=== PATIENT | male | born 1970 | race Caucasian/White ===

== ENCOUNTER 2018-12-07 02:06 | Outpatient (CLI) | payer OTHER, SELFPAY ==
[2018-12-07 12:10] LABS: Abs Immature Grans 0.01 k/cumm (0.0-0.09); Absolute Basophil Count 0.04 k/cumm (0.0-0.2); Absolute Eosinophil Count 0.13 k/cumm (0.0-0.7); Absolute Lymphocyte Count 1.17 k/cumm (1.2-3.4); Absolute Monocyte Count 0.47 k/cumm (0.11-0.7); Absolute Neutrophil Count 3.46 k/cumm (1.2-6.7); Basophils % 0.8; Eosinophils % 2.5; HCT 39.6 % (40.0-50.0); HGB 13.8 g/dL (13.5-17.5); Immature Grans % 0.2; Lymphocytes % 22.2; Mean Corp. HGB Concentration 34.8 g/dL (32.0-36.0); Mean Corpuscular Hemoglobin 37.1 pg (27.0-33.0); Mean Corpuscular Volume 106.5 fL (80-95); Mean Platelet Volume 10.9 fL (8.0-11.0); Monocytes % 8.9; Neutrophils % 65.4; Platelet Count 159 x1000/uL (130-400); RBC 3.72 m/cumm (4.50-6.00); RBC Distribution Width 12.8 % (11.8-14.1); White Blood Cell Count 5.28 k/cumm (4.4-10.8)
[2018-12-07 12:32] LABS: Diff Comment RBC Morph Reviewed; Macrocytosis 2+
[2018-12-07 12:51] LABS: ALT 49 U/L (16-63); AST 36 U/L (15-37); Alkaline Phosphatase 72 U/L (46-116); Anion Gap 10.5 mmol/L (3-11); BUN 18 mg/dL (7-18); Bilirubin, Total 0.3 mg/dL (0.2-1.0); CO2 26.5 mmol/L (21.0-32.0); CREATININE 0.99 mg/dL (0.70-1.30); Calcium 9.2 mg/dL (8.5-10.1); Chloride 104 mmol/L (98-107); Glucose 89 mg/dL (70-100); Potassium 4.2 mmol/L (3.5-5.1); Sodium 141 mmol/L (136-145); TSH (W/Ref FT4) 3.44 uIU/mL (0.36-3.74); Total Protein 7.4 g/dL (6.4-8.2)
[2018-12-07 13:01] LABS: Calculated LDL 67 mg/dL; Cholesterol 124 mg/dL (50-200); HDL Cholesterol 47 mg/dL (40-60); Triglyceride 52 mg/dL (30-150)
[2018-12-08 11:02] LABS: Hepatitis B Surface Ag Negative (NEGAT)
[2018-12-08 11:10] LABS: HBs Antibody, Quant <3.1 mIU/mL; Hepatitis B Surface Ab Negative
[2018-12-08 11:15] LABS: Hep A Total Ab w Rflx IgM Positive (NEGAT)
[2018-12-08 15:48] LABS: Hep A Antibody IgM Negative (NEGAT)
== END 2018-12-07 02:26 ==
PROVIDERS: Visit Provider Nurse Practitioner Adult Health
DX: B18.2 Chronic viral hepatitis C (principal)
CPT/HCPCS: 36415; 80053; 80061; 86706; 86709; 87340; 84443; 85025; 86704; 87522

== ENCOUNTER 2019-04-11 12:10 | Emergency (ER) | payer OTHER, SELFPAY ==
[2019-04-11] VITALS (10 sets, daily range): BP systolic 101–119; BP diastolic 65–81; PULSE 81–98; RESP 16–19; TEMP 36.7–37; O2SAT 96–100
--- NOTE | 2019-04-11 12:29 | ED.GENADUL_ITS ---
Discharge Plan Disposition Patient Disposition: [facility] Condition: Stable Discharge Details Chief Complaint: Cellulitis Clinical Impression: Cellulitis of left leg Primary Care Provider: None,None ED Provider: Sepideh Sena Home Meds and New Rx's Prescriptions: New cephalexin 500 mg tablet 500 mg PO BID 10 Days Qty: 20 RF: 0 Continued buprenorphine HCl 8 mg Tablet, Sublingual 16 mg SUBLINGUAL DAILY RF: 0 Vyvanse 70 mg Capsule 70 mg PO DAILY RF: 0 Discharge Instructions Instructions: Cellulitis (ED) Additional Instructions: Return if redness spreads past marked edges in 2-3 days. You should see improvement in 3-5 days. Take Tylenol or Ibuprofen as needed for pain or fever. Return for any worsening. Take medications as directed. Follow up with primary care provider in 3-5 days. Return to ED sooner if any worsening or concerns. Increase oral fluids. Medical Decision Making 48-year-old incarcerated male presents with left lower extremity erythema and swelling which he reports is been in place for 24 hours. Denies any trauma or dysuria. Associated symptoms include headache body aches and chills. He does have a history of a spinal abscess and PEs which he reports were septic PEs does have a history of IV drug use which he reports none in the last 12 years. On exam he has a large erythemic warm area to his left medial thigh which extends up into his groin. No testicle swelling or redness. He also has some erythema noted to his left lower calf and ankle and foot. Does have 3+ pitting edema and weeping noted to his lower extremity. Labs obtained including CBC CMP lactate and CRP, ultrasound venous Doppler ordered to rule out DVT. Preliminary result from slot technician received, negative for DVT, swollen lymph nodes noted in the left groin, and a small Alva's cyst noted to the popliteal fossa measuring approximately 2.8 cm. 1429: Spoke with RN at the [facility] medical and discussed his care. Discussed follow-up and observation of erythema and cellulitis margins to be rechecked in 2 to 3 days for worsening or improvement. The [facility] verbalizes understanding and reports that they will be able to do this. Discussed with staff that if any worsening occurs to send him back to the department. Prescription written for cephalexin 500 mg twice a day x10 days and clindamycin 600 mg IV piggyback, 1 L normal saline, and first dose of cephalexin 500 mg was given in department. At this time I feel that patient could be admitted to the hospital versus going back to the correctional facility. Due to relatively normal labs and nontoxic appearance I feel at this time it is within reason to attempt outpatient oral antibiotics. Strict return instructions given to patient staff at facility, verbalized understanding. Cellulitis edges marked and dated. HPI General Mode of arrival: ambulatory . Date/Time Provider Initiated Documentation: 04/11/19 12:12 . Limitations to Documentation: no limitations . Information obtained by: patient . HPI Narrative: 48-year-old male presents with left groin tenderness and erythema which has radiated down to his left lower extremity. Patient reports that approximately 24 hours ago he noticed so me left groin tenderness. He also reports having a headache, body chills and just feeling crappy. He is incarcerated denies any trauma denies dysuria or trouble urinating. Related Data Home Medications Medication Instructions Recorded Confirmed Vyvanse 70 mg PO DAILY 04/11/19 04/11/19 buprenorphine HCl 16 mg SUBLINGUAL DAILY 04/11/19 04/11/19 cephalexin 500 mg PO BID 10 Days #20 tab 04/11/19 Previous Rx's Medication Instructions Recorded cephalexin 500 mg PO BID 10 Days #20 tab 04/11/19 Allergies Allergy/AdvReac Type Severity Reaction Status Date / Time No Known Allergies Allergy Unverified 04/11/19 12:35 Review of Systems Narrative: constitutional: Negative for weight loss, alert and oriented, normal body habitus, appears comfortable. HEENT: Denies trauma, headaches, blurry vision, nasal discharge, sore throat, trouble swallowing. Chest: Denies chest pain, palpitations, irregular rhythm, hypertension. Respiratory: Denies Shortness of breath, cough, hemoptysis. GI: Denies abdominal pain, nausea, vomiting, diarrhea, constipation. : Denies dysuria, hematuria, flank pain, rectal bleeding. Extremities: Left lower extremity pain and swelling Neuro: Denies dizziness, blurry vision, weakness, syncope, headache or facial numbness. Hematologic: Denies easy bruising, intolerance to heat or cold, hair loss. Exam Narrative Exam Narrative: Constitutional: Allert and oriented x3. Appears older than stated age. Normal body habitus. Head: Normocephalic, no trauma. Eyes: Pupils PERRLA, Red reflex noted, EOM's intact. Eyelids symmetrical withour lesions, discharge, or swelling. ENT: Bilateral TM's WNL, External ear normal to inspection, no mastoid TTP, sw elling, or erythema, Nasal turbinates WNL, no nasal discharge. Normal dentition, Posterior pharynx WNL, no exudate. Chest: RRR, Normal S1, S2, distal pulses intact. Resp: Lungs clear to auscultation bilaterally, no wheezes, rales, or rhonchi. Musculoskeletal: Normal gait, 5/5 strength to all four extremities. Left groin erythema noted which extends into his anterior mid thigh. Also has lower calf erythema and 3+ edema with mild yellow drainage noted which extends into his foot. : No testicle pain or swelling, denies dysuria. Skin: Capillary refill less than 2 sec. no obvious signs of trauma or wounds noted. Neurologic: Cranial nerves II-XII intact. Alert and oriented x 3. DTR's intact. Hematologic/Lymphatic: No ecchymosis, positive left groin lymphadenopathy. Extrem Left lower extremity: edema Details: 3+ and hip/thigh Details: warmth Upper/lower leg/hip images: 1. Erythema Course Lab/Test Results Lab/Test Results: 04/11/19 12:22 Blood Blood Culture - Pending 04/11/19 12:22 Blood Blood Culture - Pending
[2019-04-11] MEDS: Normal Saline Flush 10 ML SYR IVP (12:41)
[2019-04-11 12:43] LABS: Lactate 1.4 mmol/L (0.6-1.4)
--- NOTE | 2019-04-11 12:45 | DI.US_ITS ---
EXAM: US LOWER EXTREMITY VENOUS LT CLINICAL HISTORY: Redness, swelling, h/o PE. TECHNIQUE: Left lower extremity venous ultrasound performed using grayscale, color-flow, and spectra l Doppler analysis. COMPARISON: No exams were available for comparison FINDINGS: The left common femoral, femoral and popliteal veins demonstrate normal compressibility, augmentation , and color Doppler. The posterior tibial vein is patent. The saphenofemoral junction is unremarkabl e. There is a 2.8 x 0.9 x 2.4 cm Alva's cyst. Sonographically unremarkable lymph nodes are seen in the left inguinal region. The largest measures 2.3 x 0.6 x 2.8 cm. IMPRESSION: No DVT.
[2019-04-11 12:46] LABS: Abs Immature Grans 0.04 k/cumm (0.0-0.09); HCT 36.9 % (40.0-50.0); HGB 12.7 g/dL (13.5-17.5); Mean Corp. HGB Concentration 34.4 g/dL (32.0-36.0); Mean Corpuscular Hemoglobin 32.9 pg (27.0-33.0); Mean Corpuscular Volume 95.6 fL (80-95); Mean Platelet Volume 9.8 fL (8.0-11.0); Platelet Count 123 x1000/uL (130-400); RBC 3.86 m/cumm (4.50-6.00); RBC Distribution Width 12.6 % (11.8-14.1); White Blood Cell Count 6.01 k/cumm (4.4-10.8)
[2019-04-11] MEDS: Normal Saline 1,000 ML 1000 ML IV (13:00)
[2019-04-11 13:06] LABS: Absolute Monocyte Count 0.06 k/cumm (0.11-0.7); Absolute Neutrophil Count 5.65 k/cumm (1.2-6.7); Diff Comment Manual Differential
[2019-04-11 13:07] LABS: RBC Morphology Normal
[2019-04-11 13:11] LABS: ALT 47 U/L (16-63); AST 35 U/L (15-37); Albumin 3.5 g/dL (3.4-5.0); Alkaline Phosphatase 65 U/L (46-116); Anion Gap 9.2 mmol/L (3-11); BUN 22 mg/dL (7-18); Bilirubin, Total 0.6 mg/dL (0.2-1.0); CO2 27.8 mmol/L (21.0-32.0); CREATININE 1.42 mg/dL (0.70-1.30); Calcium 8.4 mg/dL (8.5-10.1); Chloride 101 mmol/L (98-107); Estimated GFR 53.44 (mL/min/1.73m2); Glucose 131 mg/dL (74-106); Potassium 3.8 mmol/L (3.5-5.1); Sodium 138 mmol/L (136-145); Total Protein 7.1 g/dL (6.4-8.2)
[2019-04-11 13:32] LABS: C-Reactive Protein 20.03 mg/dL (0.0-0.3)
[2019-04-11 14:03] LABS: Bilirubin Negative (Negative); Blood Negative (Negative); Clarity Clear (Clear); Glucose Negative (Negative); Ketones Negative (Negative); Leukocyte Esterase Negative (Negative); Nitrite Negative (Negative); Urobilinogen 0.2 EU/dL (Up TO 0.2); pH 6.5 (5-8)
[2019-04-11] MEDS: CLINDAMYCIN 600 MG/50 ML BAG 100 MG IVPB (14:24)
[2019-04-11] MEDS: Ketorolac 15 MG/ML VIAL IVP (14:35)
[2019-04-11] MEDS: Cephalexin 500 MG CAP PO (14:35)
== END 2019-04-11 15:02 | disposition home or self-care (01) ==
PROVIDERS: Emergency Provider Registered Nurse Emergency
DX: L03.116 Cellulitis of left lower limb (principal)
CPT/HCPCS: 80053; 87040; 96361; 96365; 96375; 99284; 81003; 83605; 85025; 86140; 93971; J1885

== ENCOUNTER 2019-04-14 06:51 | Inpatient (IN) | payer MEDICAID, SELFPAY ==
[2019-04-14] VITALS (30 sets, daily range): BP systolic 101–125; BP diastolic 59–76; PULSE 71–92; RESP 9–88; TEMP 36.6–38.1; O2SAT 96–100
--- NOTE | 2019-04-14 07:17 | ED.GENADUL_ITS ---
Discharge Plan Disposition Condition: Improving Discharge Details Chief Complaint: Cellulitis Admit Date/Time: 04/14/19 10:38 Admit Provider: Debbi Bhardwaj Attending Provider: Debbi Bhardwaj Primary Care Provider: None,None ED Provider: Rolando Parks Discharge Instructions Activity:: Activity as Tolerated Equipment/Supplies:: No Equipment Needed Diet:: As Tolerated Discharge Orders Discharge Orders: Discharge Order (Routine); Ordered 04/24/19 Ordered By: Nafisa Ji Discharge Data Discharge Date/Time-TO BE ENTERED AT DEPARTURE: 04/14/19 11:45 Medical Decision Making <Malvin Brown MD - Last Filed: 04/17/19 23:07> Patient with worsening infection. At this point I'd be concerned for necrotizing fasciitis given the look of his leg. However, he is not febrile here. He is not toxic appearing. He has normal vital signs. Initially, IV established by nursing and laboratory studies obtained. Fluids, Toradol, antibiotics ordered. CT scan of the lower extremity with IV contrast ordered to evaluate for deep infection. Nursing IV blew and is no longer working. I attempted ultrasound guidance IV twice in the left arm. Vein cannulated both times but unable to thread catheter. White count and lactic acid are back and normal. Case discussed with oncoming physician Dr. Rolando Parks. He will take over patient's care as well as attempt IV placement. Medical Records Medical records reviewed: Yes I reviewed the patient's medical records. <Rolando Parks MD - Last Filed: 05/07/19 08:38> Care signed out by Dr. Brown. Please see his documentation regarding initial ED presentation and course. CT of the lower extremity was discussed with radiologist who notes consistent with cellulitis, no signs of gas, not consistent with necrotizing fasciitis, no abscess. Labs reviewed. Normal lactate. Antibiotics have been initiated -vancomycin and Zosyn. Patient will be admitted to hospitalist service. I called and spoke with the hospitalist and discussed ED presentation and course. Care transition to hospitalist service at time of admission. Diagnosis: Severe cellulitis of left lower extremity Disposition: Admission Condition: Serious HPI <Malvin Brown MD - Last Filed: 04/17/19 23:07> General Mode of arrival: ambulatory . Date/Time Provider Initiated Documentation: 04/14/19 07:14 . Limitations to Documentation: no limitations . Information obtained by: patient, RN notes reviewed and old records reviewed . HPI Narrative: Patient returns to ED for reevaluation of left lower extremity pain, swelling, redness. Patient seen here on the . Ultrasound negative for DVT. Laboratory studies unremarkable and nontoxic in appearance per documentation. Elected to treat outpatient with oral antibiotics with recheck in 2 to 3 days. He has become worse rather than better even with the addition of Bactrim and a dose of IM ceftriaxone. He is sent here for reevaluation. He reports fever last night. He denies chest pain, shortness of breath, abdominal pain, testicular pain. Related Data Home Medications Medication Instructions Recorded Confirmed buprenorphine HCl 16 mg SUBLINGUAL DAILY 04/11/19 04/24/19 Vyvanse 70 mg PO DAILY #30 cap 05/04/19 acetaminophen [Mapap Extra 1,000 mg PO Q6H PRN PRN #0 tab 05/04/19 Strength] acidophilus-pectin, citrus 1 cap PO TID #21 tab 05/04/19 amoxicillin-pot clavulanate 1 tab PO BID #14 tab 05/04/19 docusate sodium [Colace] 100 mg PO BID #0 cap 05/04/19 gabapentin 100 mg PO TID #90 cap 05/04/19 ibuprofen 600 mg PO QID #0 tab 05/04/19 04/24/19 oxycodone 5 mg PO Q3D PRN #30 tab 05/04/19 Previous Rx's Medication Instructions Recorded Vyvanse 70 mg PO DAILY #30 cap 05/04/19 acetaminophen [Mapap Extra 1,000 mg PO Q6H PRN PRN #0 tab 05/04/19 Strength] acidophilus-pectin, citrus 1 cap PO TID #21 tab 05/04/19 amoxicillin-pot clavulanate 1 tab PO BID #14 tab 05/04/19 docusate sodium [Colace] 100 mg PO BID #0 cap 05/04/19 gabapentin 100 mg PO TID #90 cap 05/04/19 ibuprofen 600 mg PO QID #0 tab 05/04/19 oxycodone 5 mg PO Q3D PRN #30 tab 05/04/19 Allergies Allergy/AdvReac Type Severity Reaction Status Date / Time No Known Allergies Allergy Unverified 04/14/19 07:09 General Stated Complaint: Cellulitis CARLOS: 3 Review of Systems <Malvin Brown MD - Last Filed: 04/17/19 23:07> Narrative: 12/05 Review of Systems completed and is negative except as stated above in HPI (Systems reviewed: Const, Eyes, ENT, Resp, CV, GI, , MSK, Skin, Neuro) PFS <Malvin Brown MD - Last Filed: 04/17/19 23:07> Medical History (Updated 05/03/19 @ 16:36 by Bijal Melendez DO) Acute venous stasis dermatitis (Acute) Anemia of chronic disease (Acute) no Fe defn Cellulitis and abscess of left lower extremity (Acute) No active medical problems (Acute) Venous stasis ulcer of ankle (Acute) Surgical History History of incision and drainage (Inactive) Left sternal-clavicular septic joint Social History Smoking/Tobacco Use Status: Former Tobacco Use Alcohol Intake: former Drug use: Current Sobriety Substance use type: former substance user Exam <Malvin Brown MD - Last Filed: 04/17/19 23:07> Narrative Exam Narrative: Vitals: Afebrile. Normal vital signs and normal room air pulse oximetry. Const: WDWN male in NAD. HEENT: NC/AT. Normal facial exam. Eyes: Normal conjunctiva and sclera. Neck: Supple. Trachea midline. Lungs: Normal respiratory effort. Lungs are clear. Cor: RRR without murmur/gallop. Good radial pulses. GI: Soft. NT/ND. No guarding or rebound. Neuro: A+O x 3. Normal speech, mentation, gait. Cranial nerves II - XII grossly intact. No gross motor or sensory deficit. Ext: Left lower extremity with significant swelling and edema. There is drainage exuding from the distal left lower extremity. He has circumferential erythema from the knee down with significant tenderness and swelling. He has continued erythema and the medial aspect of the thigh all the way to the groin. No involvement of the perineum or scrotum. Skin: Warm and dry with erythema of LLE. Course <Malvin Brown MD - Last Filed: 04/17/19 23:07> Vital Signs Vital signs: Vital Signs Temperature 98.8 F 04/14/19 06:58 Pulse 90 04/14/19 06:58 Respiratory Rate 18 04/14/19 06:58 Blood Pressure 125/75 04/14/19 06:58 Pulse Oximetry 100 04/14/19 06:58 Temperature 98.8 F 04/14/19 06:58 Temperature Source Temporal Artery Scan 04/14/19 06:58 Pulse 90 04/14/19 06:58 Respiratory Rate 18 04/14/19 06:58 Respiratory Effort Non-Labored 04/14/19 07:05 Blood Pressure 125/75 04/14/19 06:58 Blood Pressure Position Sitting 04/14/19 06:58 Pulse Oximetry 100 04/14/19 06:58 Oxygen Delivery Method Room Air 04/14/19 06:58 Oxygen Flow Rate 0 04/14/19 06:58 Pain Level 8 04/14/19 06:58 Sign Out <Malvin Brown MD - Last Filed: 04/17/19 23:07> Sign Out Data: Sign Out Comment: Signed out pending CT scan of lower extremity and pending labs. Last updated by Malvin Brown MD at 04/14/19 08:14
[2019-04-14] MEDS: Ketorolac 30 MG/ML VIAL IVP ×2 (07:36→21:58)
[2019-04-14 07:57] LABS: Abs Immature Grans 0.04 k/cumm (0.0-0.09); Absolute Basophil Count 0.02 k/cumm (0.0-0.2); Absolute Eosinophil Count 0.14 k/cumm (0.0-0.7); Absolute Lymphocyte Count 0.48 k/cumm (1.2-3.4); Absolute Monocyte Count 0.89 k/cumm (0.11-0.7); Absolute Neutrophil Count 5.96 k/cumm (1.2-6.7); Basophils % 0.3; Eosinophils % 1.9; HCT 36.3 % (40.0-50.0); HGB 12.5 g/dL (13.5-17.5); Immature Grans % 0.5 %; Lactate 1.4 mmol/L (0.6-1.4); Lymphocytes % 6.4; Mean Corp. HGB Concentration 34.4 g/dL (32.0-36.0); Mean Corpuscular Hemoglobin 32.7 pg (27.0-33.0); Mean Platelet Volume 9.9 fL (8.0-11.0); Monocytes % 11.8; Neutrophils % 79.1; Platelet Count 146 x1000/uL (130-400); RBC 3.82 m/cumm (4.50-6.00); RBC Distribution Width 12.8 % (11.8-14.1); White Blood Cell Count 7.53 k/cumm (4.4-10.8)
[2019-04-14] MEDS: ALPRAZolam 0.5 MG TAB PO (08:11)
[2019-04-14] MEDS: Lactated Ringers 1,000 ML 1000 ML IV (08:35)
[2019-04-14 09:06] LABS: ALT 38 U/L (16-63); AST 32 U/L (15-37); Alkaline Phosphatase 80 U/L (46-116); Anion Gap 9.1 mmol/L (3-11); BUN 14 mg/dL (7-18); Bilirubin, Total 0.5 mg/dL (0.2-1.0); CO2 28.9 mmol/L (21.0-32.0); CREATININE 1.08 mg/dL (0.70-1.30); Calcium 8.5 mg/dL (8.5-10.1); Chloride 100 mmol/L (98-107); Glucose 92 mg/dL (74-106); Potassium 3.5 mmol/L (3.5-5.1); Sodium 138 mmol/L (136-145); Total Protein 7.4 g/dL (6.4-8.2)
--- NOTE | 2019-04-14 09:16 | DI.CT_ITS ---
EXAM: CT LOWER EXTREMITY LT W CLINICAL HISTORY: severe cellulitis/swelling TECHNIQUE: Images were performed from the aortic bifurcation through the toes following the administ ration of 100 cc of Omnipaque 350. COMPARISON: No exams were available for comparison FINDINGS: There is extensive edema in the subcutaneous fat extending from the level of the knee through the to es. The edema is greatest around the knee and ankle. There is no drainable collection or evidence o f soft tissue gas formation. The muscles appear normal. There are no bony erosions. There are mild ly enlarged groin lymph nodes, the largest measuring 2 cm. The arteries and veins show normal diamet er. Bladder and prostate are unremarkable. There is no fluid seen in the pelvis. The appendix appe ars normal. IMPRESSION: Findings consistent with severe cellulitis with reactive left groin lymph nodes. There is no evidenc e pf necrotizing fasciitis or drainable collection.
[2019-04-14] MEDS: VANCOMYCIN 2,000 MG in Normal Saline 500 ML 250 MG IVPB (09:18)
[2019-04-14] MEDS: Omnipaque 350 MG/ML 100 ML BTL IJ (09:19)
[2019-04-14] MEDS: Normal Saline - Diluent 50 ML VIAL IV (09:20)
[2019-04-14] MEDS: Normal Saline Flush 10 ML SYR IVP ×3 (09:20→18:40)
[2019-04-14] MEDS: HYDROmorphone 2 MG/ML VIAL 1 MG IVP (09:31)
[2019-04-14] MEDS: Normal Saline 1,000 ML 150 ML IV ×2 (09:51→16:16)
[2019-04-14] MEDS: PIPERACILLIN/TAZO 4.5 GM in Normal Saline 100 ML IVPB ×3 (11:37→23:55)
[2019-04-14] MEDS: Lactobacillus Acidophilus CAP 1 CAP PO ×2 (14:27→20:04)
[2019-04-14] MEDS: Ibuprofen 200 MG TAB 600 MG PO (14:28)
[2019-04-14] MEDS: Enoxaparin 40 MG/0.4 ML SYR SC (14:30)
--- NOTE | 2019-04-14 16:08 | W.PM.HP.N ---
Date of service: 04/14/19 Time of Service: 16:08 Assessment and Plan Assessment and plan (1) Cellulitis of left leg: Status: Acute Assessment and plan: .Admitted to the medical surgical unit inpatient status for failed outpatient treatment on Bactrim and cephalexin. We will continue Zosyn and vancomycin which were initiated in the emergency department pharmacy dosing for vancomycin. Elevate leg as much as possible above level of heart. CT scan was consistent with severe cellulitis with reactive left groin lymph nodes no evidence of necrotizing fasciitis or drainable collection. Lactic acid was normal. (2) DVT prophylaxis: Status: Acute Assessment and plan: Enoxaparin daily (3) Discharge planning issues: Status: Acute Assessment and plan: [facility]. History of Present Illness History of Present Illness Chief Complaint: left lower extremity pain and swelling Narrative: This is a 48-year-old male patient who is been incarcerated for the last 6 months who has a history of IV drug abuse states he is clean 12 years who presents to the emergency department for failed outpatient treatment of left lower extremity cellulitis. He has been on Bactrim and cephalexin with worsening erythema swelling and pain. His work-up in the emergency department did rule out necrotizing fasciitis with negative lactic acid and CT that showed no drainable collection or evidence of necrotizing fasciitis. He was started on IV vancomycin and Zosyn and will be admitted under hospitalist service to the MedSur unit for further management. He has been afebrile and hemodynamically stable there is no evidence of sepsis Review of Systems Constitutional Constitutional: Reports fever(s) ENT Ears, Nose, Mouth, and Throat: Denies vertigo and Denies dizziness Cardiovascular Cardiovascular: Denies chest pain, Denies syncope, Reports leg edema, Denies palpitations and Denies dyspnea Respiratory Respiratory: Denies cough and Denies dyspnea Gastrointestinal Gastrointestinal: Denies change in bowel habits, Denies constipation and Denies loose stools Genitourinary Genitourinary: Denies urinary frequency Musculoskeletal Musculoskeletal: Denies muscle weakness and Denies numbness Integumentary/Breasts Skin/Breast: Reports rash (Left lower extremity) Neurologic Neurologic: Denies vertigo, Denies dizziness, Denies syncope and Denies numbness Endocrine Endocrine: Denies palpitations Hematologic/Lymphatic Hematologic/Lymphatic: Denies easy bruising and Reports lymphadenopathy PFSH Medical History (Updated 04/14/19 @ 16:22 by Amanda Alexander NP) No active medical problems (Acute) Surgical History (Updated 04/14/19 @ 07:32 by Malvin Brown MD) History of incision and drainage (Inactive) Left sternal-clavicular septic joint Social History (Updated 04/14/19 @ 07:18 by Malvin Brown MD) Smoking/Tobacco Use Status: Former Tobacco Use Alcohol Intake: former Drug use: Current Sobriety Substance use type: former substance user Meds Home Medications and Allergies Home Medications Medication Instructions Recorded Confirmed Type Vyvanse 70 mg PO DAILY 04/11/19 04/14/19 History buprenorphine HCl 16 mg SUBLINGUAL DAILY 04/11/19 04/14/19 History cephalexin 500 mg PO BID 10 Days #20 tab 04/11/19 04/14/19 Rx ibuprofen 600 mg PO BID PRN 04/14/19 04/14/19 History sulfamethoxazole-trimethoprim 1 tab PO BID 04/14/19 04/14/19 History Allergies Allergy/AdvReac Type Severity Reaction Status Date / Time No Known Allergies Allergy Unverified 04/14/19 07:09 Exam Const General: cooperative, healthy appearing, comfortable and no acute distress Nutritional Appearance: average body habitus Orientation: alert, awake and oriented x3 HENMT Head: normal to inspection, normocephalic and atraumatic Mouth: oral mucosae normal Resp Effort & Inspection: normal respiratory effort Auscultation: clear to auscultation bilaterally Cardio Rate: regular rate Rhythm: regular rhythm Heart Sounds: no murmurs GI Inspection: normal to inspection Palpation: soft Auscultation: normal bowel sounds Skin Rashes: rashes noted (Left lower extremity consistent with cellulitis there is areas of blisters ) Neuro General: alert, awake and oriented x3 Cranial Nerves: CN's II-XI intact bilaterally Extrem General: full ROM and edema Psych Appearance: grossly normal Mental Status: mental status grossly normal Speech and Movement: speech and movement normal Mood: congruent mood Affect: normal affect Attitude: cooperative Thought Process: normal Thought Content: normal Results Labs Result diagrams: 04/14/19 07:10 04/14/19 07:10 Labs: Laboratory Results - last 24 hr 04/14/19 04/14/19 04/14/19 07:10 07:10 07:10 WBC 7.53 RBC 3.82 L Hgb 12.5 L Hct 36.3 L MCV 95.0 MCH 32.7 MCHC 34.4 RDW 12.8 Plt Count 146 MPV 9.9 Immature Gran % 0.5 Neutrophils % 79.1 Lymphocytes % 6.4 Monocytes % 11.8 Eosinophils % 1.9 Basophils % 0.3 Absolute Neutrophils 5.96 Absolute Lymphocytes 0.48 L Absolute Monocytes 0.89 H Absolute Eosinophils 0.14 Absolute Basophils 0.02 Sodium 138 Potassium 3.5 Chloride 100 Carbon Dioxide 28.9 Anion Gap 9.1 BUN 14 D Creatinine 1.08 Estimated GFR/1.73 m2 >= 60.00 Glucose 92 Lactate 1.4 Calcium 8.5 Total Bilirubin 0.5 AST 32 ALT 38 Alkaline Phosphatase 80 Total Protein 7.4 Albumin 3.0 L Last Vital Signs Temp 37.2 C 04/14/19 15:43 Pulse 88 04/14/19 15:43 Resp 88 H 04/14/19 15:43 BP 113/70 04/14/19 15:43 Pulse Ox 100 04/14/19 15:43
[2019-04-14] MEDS: Acetaminophen 500 MG TAB 1000 MG PO ×2 (17:10→23:54)
[2019-04-14] MEDS: HYDROmorphone 2 MG/ML VIAL 0.5 MG IVP (18:40)
[2019-04-15] MEDS: HYDROmorphone 2 MG/ML VIAL 0.5 MG IVP ×3 (00:32→13:47)
[2019-04-15] MEDS: Normal Saline 1,000 ML 150 ML IV ×3 (02:01→18:56)
[2019-04-15] MEDS: Ketorolac 30 MG/ML VIAL IVP ×4 (03:35→21:52)
[2019-04-15] MEDS: PIPERACILLIN/TAZO 4.5 GM in Normal Saline 100 ML IVPB ×4 (05:59→23:59)
[2019-04-15 07:20] VITALS: BP 113/78; PULSE 78; RESP 17; TEMP 36.5; O2SAT 100
--- NOTE | 2019-04-15 08:27 | PDOC.CMIN ---
- If Service Date Differs Date of service: 04/15/19 Time of Service: 08:27 Care Management Initial Assess REASON FOR HOSPITALIZATION:: Cellulitis of left leg PAST MEDICAL HISTORY/PAST SURGICAL HISTORY:: Medical History (Updated 04/14/19 @ 16:22 by Amanda Alexander NP). No active medical problems (Acute). Surgical History (Updated 04/14/19 @ 07:32 by Malvin Brown MD). History of incision and drainage (Inactive). Left sternal-clavicular septic joint PREVIOUS FUNCTIONAL STATUS/SOCIAL/FAMILY SUPPORTS:: Enzo is currently incarcerated at the [facility]. He has been there since October and has a release date of 04/24/2019. Prior to incarceration, Enzo lived in [place] with his girlfriend and 2 young children ages 2 and 4. He also has 3 adult children but is not in close contact with them. Enzo states he plans to return to [place] but not to his prior living arrrangement. 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 CURRENT FUNCTIONAL STATUS:: Enzo was sitting up in bed when CM met with him. He was polite and agreeable to conversation. He stated that he had not injured his leg prior to the development of the cellulitis which is extensive and painful, according to Enzo. He also shared that 2 years ago he was hospitalized at [facility] for significant infections in his spine and collar bone. ADVANCE DIRECTIVES:: None on file Has patient been provided with information about the portal?: No Did the patient sign up for the portal?: No CODE STATUS:: Full Code INSURANCE COVERAGE / FINANCIAL ISSUES:: [facility] CURRENT HOME/COMMUNITY SERVICES/EQUIPMENT:: none PRIMARY CARE PHYSICIAN:: none POTENTIAL DISCHARGE NEEDS:: Follow up plan PATIENT/FAMILY EDUCATION NEEDS:: limitations, [employer]. TRANSPORTATION:: Enzo will be transported in a [place] vehicle with law enforcement officials PLAN:: Enzo will return to custodial when discharged from the hospital until he is released in early April. He will follow up with the facility provider and plan of care. CM will continue to support Enzo and his discharge needs.
[2019-04-15] MEDS: Lactobacillus Acidophilus CAP 1 CAP PO ×3 (08:36→20:23)
[2019-04-15] MEDS: Acetaminophen 500 MG TAB 1000 MG PO ×2 (08:36→16:58)
[2019-04-15] MEDS: Normal Saline Flush 10 ML SYR IVP ×4 (09:49→18:03)
--- NOTE | 2019-04-15 11:03 | W.PM.PROGNOT ---
Date of Service Date of service: 04/15/19 Time of Service: 11:03 Assessment and Plan Assessment and plan (1) Cellulitis of left leg: Start date: 04/15/19 Start time: 11:20 Status: Acute Assessment and plan: Vanco and angysyn day 2. Trend CRP last one 04/11 was 20.03. BC no growth to date. Continues to c/o pain. tylenol scheduled q 6 hours, toradol scheduled dilaudid every 6 prn and will add po roxicodone for pain. LLE with erythema and edema, multiple bulla weeping, continue to monitor. (2) DVT prophylaxis: Start date: 04/15/19 Start time: 11:25 Status: Acute Assessment and plan: Enoxaparin daily (3) Discharge planning issues: Start date: 04/15/19 Start time: 11:25 Status: Acute Assessment and plan: [facility]. Subjective Subjective Patient reports: still having pain Interval history since last seen: Continues to have pain. Does state swelling is better and redness is getting better. Denies CP, SOB, N/V/D. Exam Narrative Exam Narrative: Const: Sitting up in bed, NAD Eyes: PERRLA, EOMI Neck: no lymphedema, goiter or carotid upstroke Chest: symmetrical, atraumatic Resp: Even unlabored. Able to complete sentences without difficulty Cardio: RRR no murmurs appreciated GI: Abd soft nontender, b.s. x 4 Skin: erthyema with edema to LLE, multiple bullas present some weeping, erythema to mid thigh Objective Objective Clinical Data: Vital Signs Temperature 36.5 C 04/15/19 07:20 Temperature Source Tympanic 04/15/19 07:20 Pulse 78 04/15/19 07:20 Pulse Rhythm Regular 04/15/19 08:45 Pulse 84 04/14/19 11:30 Respiratory Rate 17 04/15/19 07:20 Respiratory Effort Non-Labored 04/15/19 08:45 Respiratory Depth Normal 04/15/19 08:45 Respiratory Pattern Normal 04/15/19 08:45 Blood Pressure 113/78 04/15/19 07:20 Blood Pressure Mean 76 04/14/19 11:30 Blood Pressure Position Sitting 04/14/19 06:58 Pulse Oximetry 100 04/15/19 07:20 Oxygen Delivery Method Room Air 04/15/19 07:20 Oxygen Flow Rate 0 04/15/19 07:20 Pain Level 6 04/15/19 09:49 Comment 04/14/19 15:43 Intake & Output 04/14/19 04/14/19 04/15/19 11:59 23:59 11:59 Intake Total 1520 / 3837.5 2317.5 / 3837.5 1600 / 1600 Output Total 1050 / 1050 1750 / 1750 Balance 1520 / 2787.5 1267.5 / 2787.5 -150 / -150 Weight 98.43 kg 100.9 kg Intake: IV 1520 / 3387.5 1867.5 / 3387.5 1600 / 1600 Oral 450 / 450 Output: Urine 1050 / 1050 1750 / 1750 Other: Urine Color Yellow Yellow Straw Urine Appearance Clear Clear Urine Odor Normal Normal Voiding Methods Urinal Urinal Laboratory Results WBC 7.53 k/cumm (4.4-10.8) 04/14/19 07:10 RBC 3.82 m/cumm (4.50-6.00) L 04/14/19 07:10 Hgb 12.5 g/dL (13.5-17.5) L 04/14/19 07:10 Hct 36.3 % (40.0-50.0) L 04/14/19 07:10 MCV 95.0 fL (80-95) 04/14/19 07:10 MCH 32.7 pg (27.0-33.0) 04/14/19 07:10 MCHC 34.4 g/dL (32.0-36.0) 04/14/19 07:10 RDW 12.8 % (11.8-14.1) 04/14/19 07:10 Plt Count 146 x1000/uL (130-400) 04/14/19 07:10 MPV 9.9 fL (8.0-11.0) 04/14/19 07:10 Immature Gran % 0.5 % 04/14/19 07:10 Neutrophils % 79.1 04/14/19 07:10 Lymphocytes % 6.4 04/14/19 07:10 Monocytes % 11.8 04/14/19 07:10 Eosinophils % 1.9 04/14/19 07:10 Basophils % 0.3 04/14/19 07:10 Absolute Neutrophils 5.96 k/cumm (1.2-6.7) 04/14/19 07:10 Absolute Lymphocytes 0.48 k/cumm (1.2-3.4) L 04/14/19 07:10 Absolute Monocytes 0.89 k/cumm (0.11-0.7) H 04/14/19 07:10 Absolute Eosinophils 0.14 k/cumm (0.0-0.7) 04/14/19 07:10 Absolute Basophils 0.02 k/cumm (0.0-0.2) 04/14/19 07:10 Sodium 138 mmol/L (136-145) 04/14/19 07:10 Potassium 3.5 mmol/L (3.5-5.1) 04/14/19 07:10 Chloride 100 mmol/L (98-107) 04/14/19 07:10 Carbon Dioxide 28.9 mmol/L (21.0-32.0) 04/14/19 07:10 Anion Gap 9.1 mmol/L (3-11) 04/14/19 07:10 BUN 14 mg/dL (7-18) D 04/14/19 07:10 Creatinine 1.08 mg/dL (0.70-1.30) 04/14/19 07:10 Estimated GFR/1.73 m2 >= 60.00 (mL/min/1.73m2) 04/14/19 07:10 Glucose 92 mg/dL (74-106) 04/14/19 07:10 Lactate 1.4 mmol/L (0.6-1.4) 04/14/19 07:10 Calcium 8.5 mg/dL (8.5-10.1) 04/14/19 07:10 Total Bilirubin 0.5 mg/dL (0.2-1.0) 04/14/19 07:10 AST 32 U/L (15-37) 04/14/19 07:10 ALT 38 U/L (16-63) 04/14/19 07:10 Alkaline Phosphatase 80 U/L (46-116) 04/14/19 07:10 Total Protein 7.4 g/dL (6.4-8.2) 04/14/19 07:10 Albumin 3.0 g/dL (3.4-5.0) L 04/14/19 07:10
[2019-04-15] MEDS: oxyCODONE 5 MG TAB PO ×2 (11:43→20:23)
[2019-04-15 12:00] LABS: Lactate 0.6 mmol/L (0.6-1.4)
[2019-04-15 12:01] LABS: Abs Immature Grans 0.05 k/cumm (0.0-0.09); Absolute Basophil Count 0.02 k/cumm (0.0-0.2); Absolute Eosinophil Count 0.19 k/cumm (0.0-0.7); Absolute Lymphocyte Count 0.41 k/cumm (1.2-3.4); Absolute Monocyte Count 0.76 k/cumm (0.11-0.7); Absolute Neutrophil Count 3.52 k/cumm (1.2-6.7); Basophils % 0.4; Eosinophils % 3.8; HCT 30.2 % (40.0-50.0); HGB 10.2 g/dL (13.5-17.5); Lymphocytes % 8.3; Mean Corp. HGB Concentration 33.8 g/dL (32.0-36.0); Mean Corpuscular Hemoglobin 32.4 pg (27.0-33.0); Mean Corpuscular Volume 95.9 fL (80-95); Mean Platelet Volume 9.8 fL (8.0-11.0); Monocytes % 15.4; Neutrophils % 71.1; Platelet Count 123 x1000/uL (130-400); RBC 3.15 m/cumm (4.50-6.00); White Blood Cell Count 4.95 k/cumm (4.4-10.8)
[2019-04-15 12:37] LABS: Anion Gap 8.9 mmol/L (3-11); BUN 11 mg/dL (7-18); C-Reactive Protein 18.88 mg/dL (0.0-0.3); CO2 25.1 mmol/L (21.0-32.0); CREATININE 0.97 mg/dL (0.70-1.30); Chloride 107 mmol/L (98-107); Creatine Kinase 107 U/L (39-308); Glucose 109 mg/dL (74-106); Potassium 3.9 mmol/L (3.5-5.1); Sodium 141 mmol/L (136-145)
[2019-04-15] MEDS: Enoxaparin 40 MG/0.4 ML SYR SC (13:49)
--- NOTE | 2019-04-15 14:26 | WOUNDCONS ---
Wound Initial Evaluation Narrative: Patient is a 48YOM, he is seen here for cellulitis of the left leg. His H&P, pertinent labs and history related to the wound, have been reviewed. - Wound Left Lower Tib/Fib(lower leg) Wound Type: Other (left lower extremity cellulitis) Wound General Appearance: Reddened (Entire lower left leg is dark red, with areeas of the leg that are exudating moderate to heavy), Draining Wound Bed Greatest Portion: Red (Granulation) Wound Bed Lesser Portion: Pale Aguilares Wound Surrounding Tissue Appearance: Dark Red, Shiny, Edematous, Weeping Percent of Wound Bed Granulated/Red: 50 (50% pink non granulating) Percent of Wound Bed Slough/Yellow: 0 Percent of Wound Bed Eschar/Black: 0 Wound Length: 0 in (40 cm) Wound Width: 0 in (49.9 cm) Wound Depth: 0 in (0.3 cm) Wound Drainage Amount: Large Wound Drainage Odor: Foul Odor Wound Topical Solution/Irrigant: Antibiotic Irrigant Wound Debridement Method: Mechanical Wound Debridement Result: Healthy Tissue Revealed Wound Debridement Amount of Tissue Removed: Minimal (debrisoft and anasept) - Circulation, Sensation, Motion Edema Degree: 3+ Peripheral Pulse Strength: Weak Capillary Refill: Less than 3 seconds Sensation Description: Pain Skin Temperature: Hot Skin Color: Hyperpigmentation (dark red) - NICOLE Comment:: NICOLE not indicated - Pain Pain Level: 8 Pain Scale Used: Visual Analog Scale 0-10 (considerable pain with debridement, patient's nurse notified) Pain Description: Burning, Sharp, Acute Pain Duration (Hours): 0.5 (worse with debridement) Pain Duration/Frequency: Intermittent Patient has Cellulitis of the left lower leg. This appendage is considerably redder and more edenemous than the partner leg. Patient is in considerable pain, though he feels that the pain has decreased over yesterday. Patients floor nurse stated that the swelling has decreased considerably from yesterday. - Treatment/Dressing Change Topicals/Ointments: Anasept Gel Cleanse With: Anasept Dressing Types: Kerlix (Gauze Roll), Opti-Lock (opticloc secured with kerlix) - Recomendation Recomendation:: Cleanse leg with Anasept spray and debrisoft sponge, then Pat dry. Apply 1/8 layer of Anasept Gel to the open areas of skin. Cover with Optiloc dressing. Secure dressing with Kerlix. Change dressing every other day or PRN if soiled or dislodged. Physcian/Nurse Practioner Notified: Yes (Nafisa Ji NP) Treatment Time - Time Total Time Spent with Patient: 1 hour
[2019-04-15 15:35] VITALS: BP 121/73; PULSE 83; RESP 20; TEMP 37.4; O2SAT 98
[2019-04-15] MEDS: HYDROmorphone 2 MG/ML VIAL 1 MG IVP ×2 (18:02→22:06)
[2019-04-15 23:25] VITALS: BP 139/81; PULSE 85; RESP 19; TEMP 36.7; O2SAT 97
[2019-04-16] MEDS: Acetaminophen 500 MG TAB 1000 MG PO ×4 (00:45→20:07)
[2019-04-16] MEDS: oxyCODONE 5 MG TAB PO ×4 (02:11→20:07)
[2019-04-16] MEDS: HYDROmorphone 2 MG/ML VIAL 1 MG IVP ×5 (02:12→21:21)
[2019-04-16] MEDS: Normal Saline 1,000 ML 150 ML IV ×2 (03:22→12:52)
[2019-04-16] MEDS: Ketorolac 30 MG/ML VIAL IVP ×4 (04:12→22:09)
[2019-04-16] MEDS: PIPERACILLIN/TAZO 4.5 GM in Normal Saline 100 ML IVPB ×4 (06:03→23:58)
[2019-04-16 07:32] LABS: Abs Immature Grans 0.06 k/cumm (0.0-0.09); Absolute Basophil Count 0.02 k/cumm (0.0-0.2); Absolute Eosinophil Count 0.26 k/cumm (0.0-0.7); Absolute Lymphocyte Count 0.38 k/cumm (1.2-3.4); Absolute Neutrophil Count 2.78 k/cumm (1.2-6.7); Basophils % 0.5; Eosinophils % 6.3; HGB 10.2 g/dL (13.5-17.5); Immature Grans % 1.5 %; Lymphocytes % 9.3; Mean Corpuscular Hemoglobin 32.6 pg (27.0-33.0); Mean Corpuscular Volume 95.8 fL (80-95); Monocytes % 14.6; Neutrophils % 67.8; Platelet Count 193 x1000/uL (130-400); RBC 3.13 m/cumm (4.50-6.00); RBC Distribution Width 13.1 % (11.8-14.1)
[2019-04-16 07:40] VITALS: BP 114/76; PULSE 83; RESP 16; TEMP 37; O2SAT 97
[2019-04-16 08:12] LABS: Anion Gap 8.6 mmol/L (3-11); BUN 9 mg/dL (7-18); C-Reactive Protein 17.74 mg/dL (0.0-0.3); CO2 25.4 mmol/L (21.0-32.0); CREATININE 1.02 mg/dL (0.70-1.30); Calcium 7.6 mg/dL (8.5-10.1); Chloride 107 mmol/L (98-107); Glucose 114 mg/dL (74-106); Potassium 3.7 mmol/L (3.5-5.1); Sodium 141 mmol/L (136-145)
[2019-04-16 08:35] LABS: Procalcitonin 2.2 ng/mL
[2019-04-16] MEDS: Lactobacillus Acidophilus CAP 1 CAP PO ×3 (08:51→20:00)
[2019-04-16 09:40] LABS: Vancomycin, Trough 9.2 ug/mL (10.0-20.0)
--- NOTE | 2019-04-16 11:34 | PGE_ITS ---
Date of Service Date of service: 04/16/19 Time of Service: 11:34 Assessment and Plan Assessment and plan (1) Cellulitis of left leg: Status: Acute Assessment and plan: Improving. Vanco and zosyn day 3. CRP trending down. Afebrile. Wounds weeping. Blisters gone, skin sloughing. Continue wound care per wound nurse. Pain is better. Continue current regimen. Wound culture pending. BCNGTD. LLE with erythema and edema receding from original lines. +3 pitting edema with palapable pulse. Continue to monitor. (2) DVT prophylaxis: Status: Acute Assessment and plan: Enoxaparin daily (3) Discharge planning issues: Status: Acute Assessment and plan: Will discharge back to [facility] once medically stable. Subjective Subjective Patient reports: no new complaints Exam Narrative Exam Narrative: Const: Sitting up in bed, NAD Eyes: PERRLA, EOMI Neck: no lymphedema, goiter or carotid upstroke Chest: symmetrical, atraumatic Resp: Even unlabored. Able to complete sentences without difficulty Cardio: RRR no murmurs appreciated GI: Abd soft nontender, b.s. x 4 Skin: erthyema with edema to LLE to right above need +3 pedal edema, PPP with strong pulse. Blisters open. Skin sloughing. Looks improved in appearance from yesterday. Objective Objective Clinical Data: Abnormal lab results 04/15/19 04/15/19 04/16/19 Range/Units 11:55 11:55 07:25 WBC 4.10 L (4.4-10.8) k/cumm RBC 3.15 L 3.13 L (4.50-6.00) m/cumm Hgb 10.2 L D 10.2 L (13.5-17.5) g/dL Hct 30.2 L 30.0 L (40.0-50.0) % MCV 95.9 H 95.8 H (80-95) fL Plt Count 123 L (130-400) x1000/uL Absolute Lymphocytes 0.41 L 0.38 L (1.2-3.4) k/cumm Absolute Monocytes 0.76 H (0.11-0.7) k/cumm Glucose 109 H (74-106) mg/dL Calcium 8.0 L (8.5-10.1) mg/dL C-Reactive Protein 18.88 H (0.0-0.3) mg/dL Vancomycin Trough (10.0-20.0) ug/mL 04/16/19 04/16/19 Range/Units 07:55 09:05 WBC (4.4-10.8) k/cumm RBC (4.50-6.00) m/cumm Hgb (13.5-17.5) g/dL Hct (40.0-50.0) % MCV (80-95) fL Plt Count (130-400) x1000/uL Absolute Lymphocytes (1.2-3.4) k/cumm Absolute Monocytes (0.11-0.7) k/cumm Glucose 114 H (74-106) mg/dL Calcium 7.6 L (8.5-10.1) mg/dL C-Reactive Protein 17.74 H (0.0-0.3) mg/dL Vancomycin Trough 9.2 L (10.0-20.0) ug/mL Vital Signs Temperature 37 C 04/16/19 07:40 Temperature Source Tympanic 04/16/19 07:40 Pulse 83 04/16/19 07:40 Pulse Rhythm Regular 04/16/19 08:50 Pulse 84 04/14/19 11:30 Respiratory Rate 16 04/16/19 07:40 Respiratory Effort Non-Labored 04/16/19 08:50 Respiratory Depth Normal 04/16/19 08:50 Respiratory Pattern Normal 04/16/19 08:50 Blood Pressure 114/76 04/16/19 07:40 Blood Pressure Mean 76 04/14/19 11:30 Blood Pressure Position Sitting 04/14/19 06:58 Pulse Oximetry 97 04/16/19 07:40 Oxygen Delivery Method Room Air 04/16/19 07:40 Oxygen Flow Rate 0 04/16/19 07:40 Pain Level 8 04/16/19 10:32 Comment 04/14/19 15:43 Intake & Output 04/15/19 04/15/19 04/16/19 11:59 23:59 11:59 Intake Total 1950 / 4872.5 2922.5 / 4872.5 2240.0 / 2240.0 Output Total 1750 / 2800 1050 / 2800 900 / 900 Balance 200 / 2072.5 1872.5 / 2071.5 1340.0 / 1340.0 Intake: IV 1950 / 2.5 1962.5 / 2.5 1290.0 / 1290.0 Oral 960 / 960 950 / 950 Output: Urine 1750 / 2800 1050 / 2800 900 / 900 Other: Urine Color Yellow Yellow Straw Straw Light Astrid Urine Appearance Clear Clear Clear Urine Odor Normal None Voiding Methods Urinal Urinal Urinal Laboratory Results WBC 4.10 k/cumm (4.4-10.8) L 04/16/19 07:25 RBC 3.13 m/cumm (4.50-6.00) L 04/16/19 07:25 Hgb 10.2 g/dL (13.5-17.5) L 04/16/19 07:25 Hct 30.0 % (40.0-50.0) L 04/16/19 07:25 MCV 95.8 fL (80-95) H 04/16/19 07:25 MCH 32.6 pg (27.0-33.0) 04/16/19 07:25 MCHC 34.0 g/dL (32.0-36.0) 04/16/19 07:25 RDW 13.1 % (11.8-14.1) 04/16/19 07:25 Plt Count 193 x1000/uL (130-400) 04/16/19 07:25 MPV 11.0 fL (8.0-11.0) 04/16/19 07:25 Immature Gran % 1.5 % 04/16/19 07:25 Neutrophils % 67.8 04/16/19 07:25 Lymphocytes % 9.3 04/16/19 07:25 Monocytes % 14.6 04/16/19 07:25 Eosinophils % 6.3 04/16/19 07:25 Basophils % 0.5 04/16/19 07:25 Absolute Neutrophils 2.78 k/cumm (1.2-6.7) 04/16/19 07:25 Absolute Lymphocytes 0.38 k/cumm (1.2-3.4) L 04/16/19 07:25 Absolute Monocytes 0.60 k/cumm (0.11-0.7) 04/16/19 07:25 Absolute Eosinophils 0.26 k/cumm (0.0-0.7) 04/16/19 07:25 Absolute Basophils 0.02 k/cumm (0.0-0.2) 04/16/19 07:25 Sodium 141 mmol/L (136-145) 04/16/19 07:55 Potassium 3.7 mmol/L (3.5-5.1) 04/16/19 07:55 Chloride 107 mmol/L (98-107) 04/16/19 07:55 Carbon Dioxide 25.4 mmol/L (21.0-32.0) 04/16/19 07:55 Anion Gap 8.6 mmol/L (3-11) 04/16/19 07:55 BUN 9 mg/dL (7-18) 04/16/19 07:55 Creatinine Cancelled 04/16/19 09:00 Estimated GFR/1.73 m2 Cancelled 04/16/19 09:00 Glucose 114 mg/dL (74-106) H 04/16/19 07:55 Lactate 0.6 mmol/L (0.6-1.4) 04/15/19 11:55 Calcium 7.6 mg/dL (8.5-10.1) L 04/16/19 07:55 Magnesium 2.0 mg/dL (1.8-2.4) 04/15/19 11:55 Total Bilirubin 0.5 mg/dL (0.2-1.0) 04/14/19 07:10 AST 32 U/L (15-37) 04/14/19 07:10 ALT 38 U/L (16-63) 04/14/19 07:10 Alkaline Phosphatase 80 U/L (46-116) 04/14/19 07:10 Creatine Kinase 107 U/L (39-308) 04/15/19 11:55 C-Reactive Protein 17.74 mg/dL (0.0-0.3) H 04/16/19 07:55 Total Protein 7.4 g/dL (6.4-8.2) 04/14/19 07:10 Albumin 3.0 g/dL (3.4-5.0) L 04/14/19 07:10 Procalcitonin 2.2 ng/mL 04/16/19 07:55 Vancomycin Trough 9.2 ug/mL (10.0-20.0) L 04/16/19 09:05
[2019-04-16] MEDS: Enoxaparin 40 MG/0.4 ML SYR SC (13:58)
[2019-04-16 15:15] VITALS: BP 152/90; PULSE 84; RESP 20; TEMP 37.1; O2SAT 97
[2019-04-16] MEDS: Normal Saline Flush 10 ML SYR IVP ×3 (15:58→23:57)
--- NOTE | 2019-04-16 16:41 | CMPROGNOTE_ITS ---
- If Service Date Differs Date of service: 04/16/19 Time of Service: 16:41 Care Management Progress Note S/O: Enzo was sitting up in bed when CM came to see him. He stated that he is a bit discouraged because he has been told that he may be in the hospital beyond his residential release date, which is April 23. Additionally, today is his daughter's 3rd birthday and he is unable to be with her or to communicate with her. He shared that he broke up with her mother, his girlfriend, a couple of weeks before he went to residential and does not have contact information. Enzo is also unsure about his future. With his leg as infected and swollen as it is, he realizes he may not be able to work right away. Enzo did say he has a place to stay when he is released, at least for a while. A: Enzo is a 48 year old man admitted on 04/14/19 with severe cellulitis of his LLE. P:Enzo will return to residential when discharged from the hospital until he is released in early April. If he requires extensive antibiotic therapy, he may remain hospitalized beyond his release date.He will follow up with the facility provider/PCP and plan of care. CM will continue to support Enzo and his discharge needs.
[2019-04-16 23:18] VITALS: BP 119/79; PULSE 84; RESP 18; TEMP 37.4; O2SAT 96
[2019-04-17] MEDS: HYDROmorphone 2 MG/ML VIAL 1 MG IVP ×2 (01:51→06:12)
[2019-04-17] MEDS: Normal Saline Flush 10 ML SYR IVP ×7 (01:51→23:47)
[2019-04-17] MEDS: Ketorolac 30 MG/ML VIAL IVP ×4 (04:15→22:19)
[2019-04-17] MEDS: oxyCODONE 5 MG TAB PO ×2 (05:11→11:11)
[2019-04-17] MEDS: PIPERACILLIN/TAZO 4.5 GM in Normal Saline 100 ML IVPB ×4 (05:11→23:46)
[2019-04-17 07:05] LABS: Abs Immature Grans 0.07 k/cumm (0.0-0.09); Absolute Basophil Count 0.02 k/cumm (0.0-0.2); Absolute Eosinophil Count 0.31 k/cumm (0.0-0.7); Absolute Lymphocyte Count 0.47 k/cumm (1.2-3.4); Absolute Monocyte Count 0.55 k/cumm (0.11-0.7); Absolute Neutrophil Count 4.65 k/cumm (1.2-6.7); Basophils % 0.3; Eosinophils % 5.1; HCT 30.9 % (40.0-50.0); HGB 10.3 g/dL (13.5-17.5); Immature Grans % 1.2 %; Lymphocytes % 7.7; Mean Corp. HGB Concentration 33.3 g/dL (32.0-36.0); Mean Platelet Volume 9.7 fL (8.0-11.0); Monocytes % 9.1; Neutrophils % 76.6; Platelet Count 179 x1000/uL (130-400); RBC 3.22 m/cumm (4.50-6.00); White Blood Cell Count 6.07 k/cumm (4.4-10.8)
[2019-04-17 07:26] LABS: Anion Gap 9.4 mmol/L (3-11); BUN 9 mg/dL (7-18); CO2 25.6 mmol/L (21.0-32.0); CREATININE 0.87 mg/dL (0.70-1.30); Calcium 8.3 mg/dL (8.5-10.1); Chloride 105 mmol/L (98-107); Glucose 107 mg/dL (74-106); Magnesium 1.9 mg/dL (1.8-2.4); Potassium 3.9 mmol/L (3.5-5.1); Sodium 140 mmol/L (136-145)
[2019-04-17] MEDS: Lactobacillus Acidophilus CAP 1 CAP PO ×3 (07:57→20:28)
[2019-04-17 08:07] VITALS: BP 145/87; PULSE 84; RESP 19; TEMP 37; O2SAT 97
[2019-04-17] MEDS: HYDROmorphone 2 MG/ML VIAL IVP ×2 (12:03→20:36)
--- NOTE | 2019-04-17 12:20 | W.PM.PROGNOT ---
Date of Service Date of service: 04/17/19 Time of Service: 12:20 Assessment and Plan Assessment and plan (1) Cellulitis of left leg: Start date: 04/17/19 Start time: 12:25 Status: Acute Assessment and plan: Improving. Vanco and zosyn day 4. CRP trending down. Afebrile. Wounds weeping. Blisters gone, skin sloughing. Continue wound care per wound nurse. Pain is worse today. Will increase dosing. Wound culture negative. BCNGTD. LLE with erythema and edema receding from original lines. +3 pitting edema with palapable pulse. Consider transitioning to augmentin after 5 days of vanco and zosyn in a nondiabetic patient. Continue to monitor. (2) DVT prophylaxis: Start date: 04/17/19 Start time: 12:31 Status: Acute Assessment and plan: Enoxaparin daily (3) Discharge planning issues: Start date: 04/17/19 Start time: 12:31 Status: Acute Assessment and plan: Will discharge back to house of [facility] once medically stable. Subjective Subjective Patient reports: still having pain Interval history since last seen: c/o worsening pain. States pain schedule was thrown off. PPP, edema improving erythema improving. Exam Narrative Exam Narrative: Const: Sitting up in bed, NAD Eyes: PERRLA, EOMI Neck: no lymphedema, goiter or carotid upstroke Chest: symmetrical, atraumatic Resp: Even unlabored. Able to complete sentences without difficulty Cardio: RRR no murmurs appreciated GI: Abd soft nontender, b.s. x 4 Skin: erthyema with edema to LLE to right above need +3 pedal edema, PPP with strong pulse. skin sloughing. Looks improved in appearance from yesterday. Objective Objective Clinical Data: Abnormal lab results 04/17/19 04/17/19 Range/Units 06:42 06:42 RBC 3.22 L (4.50-6.00) m/cumm Hgb 10.3 L (13.5-17.5) g/dL Hct 30.9 L (40.0-50.0) % MCV 96.0 H (80-95) fL Absolute Lymphocytes 0.47 L (1.2-3.4) k/cumm Glucose 107 H (74-106) mg/dL Calcium 8.3 L (8.5-10.1) mg/dL Vital Signs Temperature 37.0 C 04/17/19 08:07 Temperature Source Tympanic 04/17/19 08:07 Pulse 84 04/17/19 08:07 Pulse Rhythm Regular 04/17/19 09:47 Pulse 84 04/14/19 11:30 Respiratory Rate 19 04/17/19 08:07 Respiratory Effort 04/17/19 09:47 Respiratory Depth Normal 04/17/19 09:47 Respiratory Pattern Normal 04/17/19 09:47 Blood Pressure 145/87 H 04/17/19 08:07 Blood Pressure Mean 76 04/14/19 11:30 Blood Pressure Position Sitting 04/14/19 06:58 Pulse Oximetry 97 04/17/19 08:07 Oxygen Delivery Method Room Air 04/17/19 08:07 Oxygen Flow Rate 0 04/17/19 08:07 Pain Level 7 04/17/19 12:03 Comment 04/14/19 15:43 Intake & Output 04/16/19 04/17/19 04/17/19 23:59 11:59 23:59 Intake Total 1990.0 / 4547.5 700 / 700 Output Total 1925 / 2825 400 / 400 Balance 65.0 / 1722.5 300 / 300 Intake: IV 1510.0 / 3117.5 350 / 350 Oral 480 / 1430 350 / 350 Output: Urine 1925 / 2825 400 / 400 Other: Urine Color Yellow Light Astrid Urine Appearance Clear Clear Urine Odor Normal Normal Comment patient is independant with his guard in the room Voiding Methods Urinal Urinal Laboratory Results WBC 6.07 k/cumm (4.4-10.8) D 04/17/19 06:42 RBC 3.22 m/cumm (4.50-6.00) L 04/17/19 06:42 Hgb 10.3 g/dL (13.5-17.5) L 04/17/19 06:42 Hct 30.9 % (40.0-50.0) L 04/17/19 06:42 MCV 96.0 fL (80-95) H 04/17/19 06:42 MCH 32.0 pg (27.0-33.0) 04/17/19 06:42 MCHC 33.3 g/dL (32.0-36.0) 04/17/19 06:42 RDW 13.0 % (11.8-14.1) 04/17/19 06:42 Plt Count 179 x1000/uL (130-400) 04/17/19 06:42 MPV 9.7 fL (8.0-11.0) 04/17/19 06:42 Immature Gran % 1.2 % 04/17/19 06:42 Neutrophils % 76.6 04/17/19 06:42 Lymphocytes % 7.7 04/17/19 06:42 Monocytes % 9.1 04/17/19 06:42 Eosinophils % 5.1 04/17/19 06:42 Basophils % 0.3 04/17/19 06:42 Absolute Neutrophils 4.65 k/cumm (1.2-6.7) 04/17/19 06:42 Absolute Lymphocytes 0.47 k/cumm (1.2-3.4) L 04/17/19 06:42 Absolute Monocytes 0.55 k/cumm (0.11-0.7) 04/17/19 06:42 Absolute Eosinophils 0.31 k/cumm (0.0-0.7) 04/17/19 06:42 Absolute Basophils 0.02 k/cumm (0.0-0.2) 04/17/19 06:42 Sodium 140 mmol/L (136-145) 04/17/19 06:42 Potassium 3.9 mmol/L (3.5-5.1) 04/17/19 06:42 Chloride 105 mmol/L (98-107) 04/17/19 06:42 Carbon Dioxide 25.6 mmol/L (21.0-32.0) 04/17/19 06:42 Anion Gap 9.4 mmol/L (3-11) 04/17/19 06:42 BUN 9 mg/dL (7-18) 04/17/19 06:42 Creatinine 0.87 mg/dL (0.70-1.30) 04/17/19 06:42 Estimated GFR/1.73 m2 >= 60.00 (mL/min/1.73m2) 04/17/19 06:42 Glucose 107 mg/dL (74-106) H 04/17/19 06:42 Lactate 0.6 mmol/L (0.6-1.4) 04/15/19 11:55 Calcium 8.3 mg/dL (8.5-10.1) L 04/17/19 06:42 Magnesium 1.9 mg/dL (1.8-2.4) 04/17/19 06:42 Total Bilirubin 0.5 mg/dL (0.2-1.0) 04/14/19 07:10 AST 32 U/L (15-37) 04/14/19 07:10 ALT 38 U/L (16-63) 04/14/19 07:10 Alkaline Phosphatase 80 U/L (46-116) 04/14/19 07:10 Creatine Kinase 107 U/L (39-308) 04/15/19 11:55 C-Reactive Protein 17.74 mg/dL (0.0-0.3) H 04/16/19 07:55 Total Protein 7.4 g/dL (6.4-8.2) 04/14/19 07:10 Albumin 3.0 g/dL (3.4-5.0) L 04/14/19 07:10 Procalcitonin 2.2 ng/mL 04/16/19 07:55 Vancomycin Trough 9.2 ug/mL (10.0-20.0) L 04/16/19 09:05
[2019-04-17] MEDS: Enoxaparin 40 MG/0.4 ML SYR SC (14:10)
[2019-04-17 16:10] VITALS: BP 133/81; PULSE 83; RESP 18; TEMP 37.4; O2SAT 95
--- NOTE | 2019-04-17 16:24 | CMPROGNOTE_ITS ---
- If Service Date Differs Date of service: 04/17/19 Time of Service: 16:24 Care Management Progress Note S/O: Enzo was sitting up in bed when CM came to see him. He stated that he is still having a lot of pain. His leg has a lot of drainage, requiring several dressing changes daily. The dressings have been changed to dry gauze and he stated it is painful when they are removed. Enzo was released from correctional custody to [facility]. He was informed by the correction officers about the behavioral expectations and consequences should he not follow them. Enzo will return to corrections when discharged before being released permanently into the community on his release date of 04/24/2019. A: Enzo is a 48 year old man admitted on 04/14/19 with severe cellulitis of his LLE. P:CM will contact [facility] at one hour before discharge to arrange transportation for Enzo .He will return to retirement until he is released in early April. If he requires extensive antibiotic therapy, he may remain hospitalized beyond his release date. He will follow up with the facility provider/PCP and plan of care. CM will continue to support Enzo and his discharge needs.
[2019-04-17 18:03] LABS: Vancomycin, Trough 16.2 ug/mL (10.0-20.0)
[2019-04-17] MEDS: oxyCODONE 5 MG TAB 10 MG PO (18:56)
[2019-04-17] MEDS: Docusate Sodium 100 MG CAP PO (20:28)
[2019-04-17] MEDS: Clotrimazole 1% 15 GM TUBE TP (20:28)
[2019-04-18 00:24] VITALS: BP 131/83; PULSE 83; RESP 18; TEMP 36.9; O2SAT 98
[2019-04-18] MEDS: HYDROmorphone 2 MG/ML VIAL IVP ×5 (00:39→23:42)
[2019-04-18] MEDS: Normal Saline Flush 10 ML SYR IVP ×7 (01:38→23:43)
[2019-04-18] MEDS: Ketorolac 30 MG/ML VIAL IVP ×4 (03:52→21:51)
[2019-04-18] MEDS: PIPERACILLIN/TAZO 4.5 GM in Normal Saline 100 ML IVPB ×3 (06:25→21:52)
[2019-04-18] MEDS: oxyCODONE 5 MG TAB 10 MG PO (07:18)
[2019-04-18] MEDS: Docusate Sodium 100 MG CAP PO ×2 (07:52→19:41)
[2019-04-18] MEDS: Clotrimazole 1% 15 GM TUBE TP ×2 (07:52→19:41)
[2019-04-18] MEDS: Lactobacillus Acidophilus CAP 1 CAP PO ×3 (07:53→19:41)
[2019-04-18 08:13] VITALS: BP 136/85; PULSE 78; RESP 16; TEMP 36.7; O2SAT 99
--- NOTE | 2019-04-18 08:31 | PDOC.CMPRO ---
Care Management Progress Note S/O: Enzo's wounds continue to be closely monitored and managed, he remains on IV ABX, per provider he will step down to orals and require further monitoring prior to discharge. He is up independently but reports ongoing leg pain. Enzo also remains on medical furlough and will be released back to corrections upon discharge, CM continues to follow. A: Enzo is a 48 year old man admitted on 04/14/19 with severe cellulitis of his LLE. P: CM will contact [facility] at one hour before discharge to arrange transportation for Enzo. He will return to [facility] until he is released in early April. If he requires extensive antibiotic therapy, he may remain hospitalized beyond his release date; to be determined. Enzo will follow up with the facility provider/PCP and plan of care as prescribed. CM will continue to support Enzo and discharge planning considerations.
[2019-04-18 09:37] LABS: Abs Immature Grans 0.07 k/cumm (0.0-0.09); Absolute Basophil Count 0.02 k/cumm (0.0-0.2); Absolute Eosinophil Count 0.24 k/cumm (0.0-0.7); Absolute Lymphocyte Count 0.58 k/cumm (1.2-3.4); Absolute Monocyte Count 0.49 k/cumm (0.11-0.7); Basophils % 0.3; Eosinophils % 3.8; Immature Grans % 1.1 %; Lymphocytes % 9.1; Mean Corp. HGB Concentration 33.3 g/dL (32.0-36.0); Mean Corpuscular Hemoglobin 32.3 pg (27.0-33.0); Mean Corpuscular Volume 96.8 fL (80-95); Monocytes % 7.7; Platelet Count 230 x1000/uL (130-400)
[2019-04-18 09:40] LABS: Anion Gap 5.8 mmol/L (3-11); BUN 10 mg/dL (7-18); C-Reactive Protein 16.21 mg/dL (0.0-0.3); CO2 30.2 mmol/L (21.0-32.0); CREATININE 1.04 mg/dL (0.70-1.30); Calcium 8.1 mg/dL (8.5-10.1); Chloride 104 mmol/L (98-107); Glucose 145 mg/dL (74-106); Magnesium 1.9 mg/dL (1.8-2.4); Potassium 3.8 mmol/L (3.5-5.1); Sodium 140 mmol/L (136-145)
--- NOTE | 2019-04-18 12:21 | PGE_ITS ---
Date of Service Date of service: 04/18/19 Time of Service: 11:15 Assessment and Plan Assessment and plan (1) Cellulitis of left leg: Status: Acute Assessment and plan: Vanco and zosyn day 5. CRP trending down. Afebrile. Wounds weeping. Blisters gone, skin sloughing. Continue wound care per wound nurse. Pain is improving today. Wound culture negative. pitting edema with kemar pable pulse. Consider transitioning to augmentin after 5 days of vanco and zosyn in a nondiabetic patient. Continue to monitor and re-evaluate tomorrow, no downstep today. (2) DVT prophylaxis: Status: Acute Assessment and plan: enoxaparin daily (3) Tobacco abuse: Status: Acute Assessment and plan: continue nicotine replacement, using inhaled, would like patch. (4) Opioid abuse: Status: Acute Assessment and plan: will continue with home dose of suboxone, taper narcotics as cellulitis is improving. (5) Discharge planning issues: Status: Acute Assessment and plan: back to [facility] when medically stable. Subjective Subjective Patient reports: no new complaints, feels better, tolerating a regular diet and voiding w/o difficulty Interval history since last seen: reports improvement in pain swelling and erythema Exam Const General: cooperative, healthy appearing, comfortable and no acute distress Nutritional Appearance: average body habitus Orientation: alert and awake [facility] Head: normal to inspection, normocephalic and atraumatic Mouth: oral mucosae normal (no oral exudates) Resp Effort & Inspection: normal respiratory effort Auscultation: clear to auscultation bilaterally Cardio Rate: regular rate Rhythm: regular rhythm GI Inspection: normal to inspection Palpation: soft Auscultation: normal bowel sounds Skin Rashes: rashes noted (left lower extremity, extensive, oozing serous drainage. ) Neuro General: alert, awake and oriented x3 Extrem Left lower extremity: edema Psych Appearance: grossly normal Mental Status: mental status grossly normal Speech and Movement: speech and movement normal Mood: congruent mood Affect: normal affect Attitude: cooperative Thought Process: normal Thought Content: normal Insight: insight good Judgment: judgment good Objective Objective Clinical Data: Abnormal lab results 04/18/19 04/18/19 Range/Units 09:20 09:20 RBC 3.10 L (4.50-6.00) m/cumm Hgb 10.0 L (13.5-17.5) g/dL Hct 30.0 L (40.0-50.0) % MCV 96.8 H (80-95) fL Absolute Lymphocytes 0.58 L (1.2-3.4) k/cumm Glucose 145 H (74-106) mg/dL Calcium 8.1 L (8.5-10.1) mg/dL C-Reactive Protein 16.21 H (0.0-0.3) mg/dL Vital Signs Temperature 36.7 C 04/18/19 08:13 Temperature Source Tympanic 04/18/19 08:13 Pulse 78 04/18/19 08:13 Pulse Rhythm Regular 04/18/19 11:36 Pulse 84 04/14/19 11:30 Respiratory Rate 16 04/18/19 08:13 Respiratory Effort Non-Labored 04/18/19 11:36 Respiratory Depth Normal 04/18/19 11:36 Respiratory Pattern Normal 04/18/19 11:36 Blood Pressure 136/85 04/18/19 08:13 Blood Pressure Mean 76 04/14/19 11:30 Blood Pressure Position Sitting 04/14/19 06:58 Pulse Oximetry 99 04/18/19 08:13 Oxygen Delivery Method Room Air 04/18/19 08:13 Oxygen Flow Rate 0 04/18/19 08:13 Pain Level 8 04/18/19 09:29 Comment 04/14/19 15:43 Intake & Output 04/17/19 04/18/19 04/18/19 23:59 11:59 23:59 Intake Total 950 / 1750 450 / 450 Output Total 1800 / 2200 950 / 950 Balance -850 / -450 -500 / -500 Intake: IV 950 / 1400 450 / 450 Output: Urine 1800 / 2200 950 / 950 Other: Urine Color Yellow Pale Yellow Urine Appearance Clear Clear Urine Odor None None Voiding Methods Urinal Urinal Laboratory Results WBC 6.40 k/cumm (4.4-10.8) 04/18/19 09:20 RBC 3.10 m/cumm (4.50-6.00) L 04/18/19 09:20 Hgb 10.0 g/dL (13.5-17.5) L 04/18/19 09:20 Hct 30.0 % (40.0-50.0) L 04/18/19 09:20 MCV 96.8 fL (80-95) H 04/18/19 09:20 MCH 32.3 pg (27.0-33.0) 04/18/19 09:20 MCHC 33.3 g/dL (32.0-36.0) 04/18/19 09:20 RDW 13.0 % (11.8-14.1) 04/18/19 09:20 Plt Count 230 x1000/uL (130-400) 04/18/19 09:20 MPV 9.0 fL (8.0-11.0) 04/18/19 09:20 Immature Gran % 1.1 % 04/18/19 09:20 Neutrophils % 78.0 04/18/19 09:20 Lymphocytes % 9.1 04/18/19 09:20 Monocytes % 7.7 04/18/19 09:20 Eosinophils % 3.8 04/18/19 09:20 Basophils % 0.3 04/18/19 09:20 Absolute Neutrophils 5.00 k/cumm (1.2-6.7) 04/18/19 09:20 Absolute Lymphocytes 0.58 k/cumm (1.2-3.4) L 04/18/19 09:20 Absolute Monocytes 0.49 k/cumm (0.11-0.7) 04/18/19 09:20 Absolute Eosinophils 0.24 k/cumm (0.0-0.7) 04/18/19 09:20 Absolute Basophils 0.02 k/cumm (0.0-0.2) 04/18/19 09:20 Sodium 140 mmol/L (136-145) 04/18/19 09:20 Potassium 3.8 mmol/L (3.5-5.1) 04/18/19 09:20 Chloride 104 mmol/L (98-107) 04/18/19 09:20 Carbon Dioxide 30.2 mmol/L (21.0-32.0) 04/18/19 09:20 Anion Gap 5.8 mmol/L (3-11) 04/18/19 09:20 BUN 10 mg/dL (7-18) 04/18/19 09:20 Creatinine 1.04 mg/dL (0.70-1.30) 04/18/19 09:20 Estimated GFR/1.73 m2 >= 60.00 (mL/min/1.73m2) 04/18/19 09:20 Glucose 145 mg/dL (74-106) H 04/18/19 09:20 Lactate 0.6 mmol/L (0.6-1.4) 04/15/19 11:55 Calcium 8.1 mg/dL (8.5-10.1) L 04/18/19 09:20 Magnesium 1.9 mg/dL (1.8-2.4) 04/18/19 09:20 Total Bilirubin 0.5 mg/dL (0.2-1.0) 04/14/19 07:10 AST 32 U/L (15-37) 04/14/19 07:10 ALT 38 U/L (16-63) 04/14/19 07:10 Alkaline Phosphatase 80 U/L (46-116) 04/14/19 07:10 Creatine Kinase 107 U/L (39-308) 04/15/19 11:55 C-Reactive Protein 16.21 mg/dL (0.0-0.3) H 04/18/19 09:20 Total Protein 7.4 g/dL (6.4-8.2) 04/14/19 07:10 Albumin 3.0 g/dL (3.4-5.0) L 04/14/19 07:10 Procalcitonin 2.2 ng/mL 04/16/19 07:55 Vancomycin Trough 16.2 ug/mL (10.0-20.0) 04/17/19 17:42
[2019-04-18] MEDS: Enoxaparin 40 MG/0.4 ML SYR SC (13:11)
[2019-04-18] MEDS: oxyCODONE 5 MG TAB PO ×3 (13:11→19:47)
[2019-04-18 15:00] VITALS: BP 155/100; PULSE 90; RESP 16; TEMP 36.8; O2SAT 99
[2019-04-18] MEDS: Acetaminophen 500 MG TAB 1000 MG PO (16:28)
[2019-04-18 23:45] VITALS: BP 128/81; PULSE 76; RESP 17; TEMP 36.9; O2SAT 98
[2019-04-19] MEDS: Normal Saline Flush 10 ML SYR IVP ×3 (01:45→20:35)
[2019-04-19] MEDS: oxyCODONE 5 MG TAB PO ×3 (01:55→16:45)
[2019-04-19] MEDS: PIPERACILLIN/TAZO 4.5 GM in Normal Saline 100 ML IVPB ×3 (04:14→16:25)
[2019-04-19] MEDS: Ketorolac 30 MG/ML VIAL IVP ×3 (04:14→15:23)
[2019-04-19] MEDS: HYDROmorphone 2 MG/ML VIAL IVP ×3 (08:05→21:57)
[2019-04-19 08:13] VITALS: O2SAT 98
[2019-04-19] MEDS: Clotrimazole 1% 15 GM TUBE TP ×2 (09:02→20:27)
[2019-04-19] MEDS: Lactobacillus Acidophilus CAP 1 CAP PO ×3 (09:02→20:26)
[2019-04-19] MEDS: Docusate Sodium 100 MG CAP PO ×2 (09:02→20:27)
--- NOTE | 2019-04-19 10:58 | PGE_ITS ---
Date of Service Date of service: 04/19/19 Time of Service: 10:58 Assessment and Plan Assessment and plan (1) Cellulitis of left leg: Status: Acute Assessment and plan: Vanco and zosyn day 6. CRP was trending down. Afebrile. Wounds weeping. Blisters gone, skin sloughing. Continue wound care per wound nurse. Pain is improving today. Wound culture negative. pitting edema with palapable pulse. Consider transitioning to augmentin after 5 days of vanco and zosyn in a nondiabetic patient. Continue to monitor and re-evaluate tomorrow, no downstep today. (2) Opioid abuse: Status: Acute Assessment and plan: will continue with home dose of suboxone, taper narcotics as cellulitis is improving (3) Tobacco abuse: Status: Acute Assessment and plan: continue nicotine replacement, using inhaled, would like patch (4) DVT prophylaxis: Status: Acute Assessment and plan: enoxaparin daily (5) Discharge planning issues: Status: Acute Assessment and plan: back to [facility] when medically stable. Subjective Subjective Patient reports: no new complaints, feels better and pain is less Interval history since last seen: eating and drinking well, no fevers and hemodynamically stable. no abdominal pain. bowels and bladder functioning well. Exam Const General: cooperative, healthy appearing, comfortable and no acute distress Nutritional Appearance: average body habitus Orientation: alert, awake and oriented x3 HENMT Head: normal to inspection, normocephalic and atraumatic Mouth: oral mucosae normal Resp Effort & Inspection: normal respiratory effort Auscultation: clear to auscultation bilaterally Cardio Rate: regular rate Rhythm: regular rhythm GI Inspection: normal to inspection Palpation: soft Auscultation: normal bowel sounds Skin Rashes: rashes noted (left lower extremity, blisters weeping serous fluid, ) Neuro General: alert, awake and oriented x3 Cranial Nerves: CN's II-XI intact bilaterally Extrem General: edema (improving) Laterality: left Objective Objective Clinical Data: Vital Signs Temperature 36.9 C 04/18/19 23:45 Temperature Source Tympanic 04/18/19 23:45 Pulse 76 04/18/19 23:45 Pulse Rhythm Regular 04/19/19 04:00 Pulse 84 04/14/19 11:30 Respiratory Rate 17 04/18/19 23:45 Respiratory Effort Non-Labored 04/19/19 04:00 Respiratory Depth Normal 04/19/19 04:00 Respiratory Pattern Normal 04/19/19 04:00 Blood Pressure 128/81 04/18/19 23:45 Blood Pressure Mean 76 04/14/19 11:30 Blood Pressure Position Sitting 04/14/19 06:58 Pulse Oximetry 98 04/19/19 08:13 Oxygen Delivery Method Room Air 04/19/19 08:13 Oxygen Flow Rate 0 04/19/19 08:13 Pain Level 8 04/19/19 08:05 Comment 04/14/19 15:43 Intake & Output 04/18/19 04/18/19 04/19/19 11:59 23:59 11:59 Intake Total 1180 / 2110 930 / 2110 360 / 360 Output Total 950 / 950 Balance 230 / 1160 930 / 1160 360 / 360 Intake: IV 700 / 1150 450 / 1150 360 / 360 Oral 480 / 960 480 / 960 Output: Urine 950 / 950 Other: Urine Color Pale Yellow Urine Appearance Clear Clear Clear Urine Odor None Comment per patient Voiding Methods Urinal Laboratory Results WBC 6.40 k/cumm (4.4-10.8) 04/18/19 09:20 RBC 3.10 m/cumm (4.50-6.00) L 04/18/19 09:20 Hgb 10.0 g/dL (13.5-17.5) L 04/18/19 09:20 Hct 30.0 % (40.0-50.0) L 04/18/19 09:20 MCV 96.8 fL (80-95) H 04/18/19 09:20 MCH 32.3 pg (27.0-33.0) 04/18/19 09:20 MCHC 33.3 g/dL (32.0-36.0) 04/18/19 09:20 RDW 13.0 % (11.8-14.1) 04/18/19 09:20 Plt Count 230 x1000/uL (130-400) 04/18/19 09:20 MPV 9.0 fL (8.0-11.0) 04/18/19 09:20 Immature Gran % 1.1 % 04/18/19 09:20 Neutrophils % 78.0 04/18/19 09:20 Lymphocytes % 9.1 04/18/19 09:20 Monocytes % 7.7 04/18/19 09:20 Eosinophils % 3.8 04/18/19 09:20 Basophils % 0.3 04/18/19 09:20 Absolute Neutrophils 5.00 k/cumm (1.2-6.7) 04/18/19 09:20 Absolute Lymphocytes 0.58 k/cumm (1.2-3.4) L 04/18/19 09:20 Absolute Monocytes 0.49 k/cumm (0.11-0.7) 04/18/19 09:20 Absolute Eosinophils 0.24 k/cumm (0.0-0.7) 04/18/19 09:20 Absolute Basophils 0.02 k/cumm (0.0-0.2) 04/18/19 09:20 Sodium 140 mmol/L (136-145) 04/18/19 09:20 Potassium 3.8 mmol/L (3.5-5.1) 04/18/19 09:20 Chloride 104 mmol/L (98-107) 04/18/19 09:20 Carbon Dioxide 30.2 mmol/L (21.0-32.0) 04/18/19 09:20 Anion Gap 5.8 mmol/L (3-11) 04/18/19 09:20 BUN 10 mg/dL (7-18) 04/18/19 09:20 Creatinine 1.04 mg/dL (0.70-1.30) 04/18/19 09:20 Estimated GFR/1.73 m2 >= 60.00 (mL/min/1.73m2) 04/18/19 09:20 Glucose 145 mg/dL (74-106) H 04/18/19 09:20 Lactate 0.6 mmol/L (0.6-1.4) 04/15/19 11:55 Calcium 8.1 mg/dL (8.5-10.1) L 04/18/19 09:20 Magnesium 1.9 mg/dL (1.8-2.4) 04/18/19 09:20 Total Bilirubin 0.5 mg/dL (0.2-1.0) 04/14/19 07:10 AST 32 U/L (15-37) 04/14/19 07:10 ALT 38 U/L (16-63) 04/14/19 07:10 Alkaline Phosphatase 80 U/L (46-116) 04/14/19 07:10 Creatine Kinase 107 U/L (39-308) 04/15/19 11:55 C-Reactive Protein 16.21 mg/dL (0.0-0.3) H 04/18/19 09:20 Total Protein 7.4 g/dL (6.4-8.2) 04/14/19 07:10 Albumin 3.0 g/dL (3.4-5.0) L 04/14/19 07:10 Procalcitonin 2.2 ng/mL 04/16/19 07:55 Vancomycin Trough 16.2 ug/mL (10.0-20.0) 04/17/19 17:42
--- NOTE | 2019-04-19 11:33 | CMPROGNOTE_ITS ---
Care Management Progress Note S/O: Enzo's wounds continue to be closely monitored and managed, he remains on IV ABX, per provider he will step down to orals and require further monitoring prior to discharge, but not yet today. He is up independently but reports ongoing leg pain, his narcotics continue to be tapered per provider. CM listened to Enzo's concerns around experiencing pain and feeling like he was being treated as a drug seeker. CM discussed with MD who reported he would review the chart as well. CM accompanied MANAGER ASSESSMENT to look at Enzo's wound. CM also discussed pain mgmt and wound care with Dr. North. Enzo expressed concerns around connecting with a PCP in [place], CM will support Enzo in this regard. Enzo also remains on medical furlough and will be [facility] back to [facility] upon discharge. CM offered support and assurance that CM will support Enzo in coordinating his needs prior to discharge. He reported he will be resuming maintenance program in [place] as well. CM continues to follow. A: Enzo is a 48 year old man admitted on 04/14/19 with severe cellulitis of his LLE. P: CM will contact [facility] at one hour before discharge to arrange transportation for Enzo. He will return to long-term until he is released in early April. If he requires extensive antibiotic t herapy, he may remain hospitalized beyond his release date; to be determined. Enzo will follow up with the facility provider/PCP and plan of care as prescribed. CM will continue to support Enzo and discharge planning considerations.
[2019-04-19] MEDS: Enoxaparin 40 MG/0.4 ML SYR SC (13:23)
--- NOTE | 2019-04-19 15:49 | W.NUTCONSULT ---
Date of service: 04/19/19 Time of Service: 15:50 Nutritional Consult ASSESSMENT: 48 year old male with extensive cellulitis on lower left leg (skin breakdown [id number] 0.3 cm). PMH: History of opiod and tobacco use. BMI indicates overweight status. Following Regular diet with good intake but due to size of skin breakdown, will need additional protein to meet 100% nutrient/protein needs for optimal healing. With tobacco/opiod abuse history, extra vitamin supplementation needed for wound healing- recommend MVI, 500 mg Vit C BID. Estimated Needs: 2590 (30 kcal/adjusted body weight kg), 103 g protein (1.2 g pro/ABW), 2700 ml fluid. Met with Enzo today and discussed increased nutrient needs with cellulitis. He is willing to take Juan 1 packet BID, Vitamins/minerals and double protein at meals to meet protein needs. NUTRITIONAL DIAGNOSIS: Increased Nutrient Needs in view of skin breakdown and history of opiod and tobacco abuse INTERVENTION: Regular Meal Plan/ double protein serving at all meals Juan 1 packet BID MVI 500 mg Vitamin C BID MONITORING AND EVALUATION: wound healling per wound team, labs, weight, po intake, intake of juan Time Spent in Nutritional Counseling and Treatment: 15 min spent face to face
[2019-04-19 16:10] VITALS: BP 147/96; PULSE 75; RESP 19; TEMP 36.7; O2SAT 100
[2019-04-19] MEDS: Lidocaine 2% Jelly 6 ML SYR TP (16:46)
--- NOTE | 2019-04-19 17:44 | NUR.NOTE ---
Nursing Note: Spoke to Dr. North regarding the assessment that we are not meeting patients pain goals. Despite the current interventions, patients pain is still at a seven. When presented with this information, he declined to give any further pain medication. He did ask me to clarify orders, on the oxycodone, I said to him 5 mg Q-6 hours, , no further orders issued.
[2019-04-19 17:54] LABS: Vancomycin, Trough 21.7 ug/mL (10.0-20.0)
--- NOTE | 2019-04-19 18:12 | NUR.NOTE ---
Nursing Note: Dr North met me in the patients room, he made suggestions for wound care, as adding an algisite, he has added clindamycin as well and changed the time frame on oxy to q-4 hour
[2019-04-19] MEDS: CLINDAMYCIN 900 MG/50 ML BAG 50 MG IVPB (20:27)
[2019-04-19] MEDS: oxyCODONE 5 MG TAB 10 MG PO (20:27)
[2019-04-20] MEDS: Normal Saline Flush 10 ML SYR IVP ×5 (02:13→23:53)
[2019-04-20] MEDS: CLINDAMYCIN 900 MG/50 ML BAG 50 MG IVPB ×4 (03:00→20:30)
[2019-04-20 03:42] VITALS: BP 121/76; PULSE 82; RESP 17; TEMP 36.7; O2SAT 99
[2019-04-20] MEDS: HYDROmorphone 2 MG/ML VIAL IVP ×4 (05:10→23:53)
[2019-04-20] MEDS: oxyCODONE 5 MG TAB 10 MG PO ×4 (06:33→20:38)
[2019-04-20 07:11] LABS: Abs Immature Grans 0.03 k/cumm (0.0-0.09); Absolute Basophil Count 0.02 k/cumm (0.0-0.2); Absolute Eosinophil Count 0.24 k/cumm (0.0-0.7); Absolute Lymphocyte Count 0.74 k/cumm (1.2-3.4); Absolute Monocyte Count 0.56 k/cumm (0.11-0.7); Absolute Neutrophil Count 4.56 k/cumm (1.2-6.7); Basophils % 0.3; Eosinophils % 3.9; HCT 31.2 % (40.0-50.0); HGB 10.2 g/dL (13.5-17.5); Immature Grans % 0.5 %; Mean Corp. HGB Concentration 32.7 g/dL (32.0-36.0); Mean Corpuscular Hemoglobin 31.7 pg (27.0-33.0); Mean Corpuscular Volume 96.9 fL (80-95); Monocytes % 9.1; Neutrophils % 74.2; Platelet Count 361 x1000/uL (130-400); RBC 3.22 m/cumm (4.50-6.00); RBC Distribution Width 12.8 % (11.8-14.1); White Blood Cell Count 6.15 k/cumm (4.4-10.8)
[2019-04-20 07:24] LABS: BUN 15 mg/dL (7-18); C-Reactive Protein 10.77 mg/dL (0.0-0.3); CREATININE 0.99 mg/dL (0.70-1.30); Calcium 8.4 mg/dL (8.5-10.1); Chloride 104 mmol/L (98-107); Glucose 95 mg/dL (74-106); Potassium 3.9 mmol/L (3.5-5.1); Sodium 140 mmol/L (136-145)
[2019-04-20] MEDS: Acetaminophen 500 MG TAB 1000 MG PO ×2 (08:25→16:32)
[2019-04-20] MEDS: Lactobacillus Acidophilus CAP 1 CAP PO ×3 (08:26→20:29)
[2019-04-20] MEDS: Docusate Sodium 100 MG CAP PO ×2 (08:26→20:29)
[2019-04-20 08:35] LABS: ESR 117 mm/hr (0-15)
[2019-04-20 08:41] VITALS: BP 120/75; PULSE 102; RESP 22; TEMP 36.7; O2SAT 99
--- NOTE | 2019-04-20 12:01 | W.PM.PROGNOT ---
Date of Service Date of service: 04/20/19 Time of Service: 12:01 Assessment and Plan Assessment and plan (1) Cellulitis of left leg: Status: Acute Assessment and plan: marked improvement overnight with antibiotic changes. less drainage and edema. vanco and zosyn discontinued after 6 days and he as started on clindamycin and penicillin day 2. continue elevation and dressing changes. (2) Opioid abuse: Status: Acute Assessment and plan: continue suboxone, taper prn medications as able. (3) Tobacco abuse: Status: Acute Assessment and plan: nicotine replacement while hospitalized (4) DVT prophylaxis: Status: Acute Assessment and plan: enoxaparin daily (5) Discharge planning issues: Status: Acute Assessment and plan: [facility]. Subjective Subjective Patient reports: feels better and pain is less Interval history since last seen: marked improvement overnight, with less drainage and swelling. still erythematous but continues to recede. Exam Const General: cooperative, healthy appearing, comfortable and no acute distress Nutritional Appearance: average body habitus Orientation: alert, awake and oriented x3 HENMT Head: normal to inspection, normocephalic and atraumatic Mouth: oral mucosae normal (no exudates) Resp Effort & Inspection: normal respiratory effort Auscultation: clear to auscultation bilaterally Cardio Rate: regular rate Rhythm: regular rhythm GI Inspection: normal to inspection Palpation: soft Auscultation: normal bowel sounds Skin Lesions: lesion noted (sloughing of skin to anterior aspect of left leg, beefy, inflamed, improvin) Rashes: rashes noted (receding, LLE, less exudate from wounds, improved edema) Neuro General: alert, awake and oriented x3 Extrem General: normal to inspection and full ROM Objective Objective Clinical Data: Abnormal lab results 04/19/19 04/20/19 04/20/19 Range/Units 17:25 05:35 06:35 RBC 3.22 L (4.50-6.00) m/cumm Hgb 10.2 L (13.5-17.5) g/dL Hct 31.2 L (40.0-50.0) % MCV 96.9 H (80-95) fL Absolute Lymphocytes 0.74 L (1.2-3.4) k/cumm ESR 117 H (0-15) mm/hr Calcium 8.4 L (8.5-10.1) mg/dL C-Reactive Protein 10.77 H (0.0-0.3) mg/dL Vancomycin Trough 21.7 H* (10.0-20.0) ug/mL Vital Signs Temperature 36.7 C 04/20/19 08:41 Temperature Source Tympanic 04/20/19 08:41 Pulse 102 H 04/20/19 08:41 Pulse Rhythm Regular 04/20/19 03:42 Pulse 84 04/14/19 11:30 Respiratory Rate 22 04/20/19 08:41 Respiratory Effort Non-Labored 04/20/19 03:42 Respiratory Depth Normal 04/20/19 03:42 Respiratory Pattern Normal 04/20/19 03:42 Blood Pressure 120/75 04/20/19 08:41 Blood Pressure Mean 76 04/14/19 11:30 Blood Pressure Position Sitting 04/14/19 06:58 Pulse Oximetry 99 04/20/19 08:41 Oxygen Delivery Method Room Air 04/20/19 03:42 Oxygen Flow Rate 0 04/20/19 03:42 Pain Level 6 04/20/19 11:12 Comment 04/19/19 16:10 Intake & Output 04/19/19 04/20/19 04/20/19 23:59 11:59 23:59 Intake Total 2140 / 3080 100 / 100 Balance 2140 / 3080 100 / 100 Intake: IV 700 / 1160 100 / 100 Oral 1440 / 1920 Other: Urine Appearance Clear Clear Comment patient up independently to bathroom. Laboratory Results WBC 6.15 k/cumm (4.4-10.8) 04/20/19 05:35 RBC 3.22 m/cumm (4.50-6.00) L 04/20/19 05:35 Hgb 10.2 g/dL (13.5-17.5) L 04/20/19 05:35 Hct 31.2 % (40.0-50.0) L 04/20/19 05:35 MCV 96.9 fL (80-95) H 04/20/19 05:35 MCH 31.7 pg (27.0-33.0) 04/20/19 05:35 MCHC 32.7 g/dL (32.0-36.0) 04/20/19 05:35 RDW 12.8 % (11.8-14.1) 04/20/19 05:35 Plt Count 361 x1000/uL (130-400) D 04/20/19 05:35 MPV 9.0 fL (8.0-11.0) 04/20/19 05:35 Immature Gran % 0.5 % 04/20/19 05:35 Neutrophils % 74.2 04/20/19 05:35 Lymphocytes % 12.0 04/20/19 05:35 Monocytes % 9.1 04/20/19 05:35 Eosinophils % 3.9 04/20/19 05:35 Basophils % 0.3 04/20/19 05:35 Absolute Neutrophils 4.56 k/cumm (1.2-6.7) 04/20/19 05:35 Absolute Lymphocytes 0.74 k/cumm (1.2-3.4) L 04/20/19 05:35 Absolute Monocytes 0.56 k/cumm (0.11-0.7) 04/20/19 05:35 Absolute Eosinophils 0.24 k/cumm (0.0-0.7) 04/20/19 05:35 Absolute Basophils 0.02 k/cumm (0.0-0.2) 04/20/19 05:35 ESR 117 mm/hr (0-15) H 04/20/19 05:35 Sodium 140 mmol/L (136-145) 04/20/19 06:35 Potassium 3.9 mmol/L (3.5-5.1) 04/20/19 06:35 Chloride 104 mmol/L (98-107) 04/20/19 06:35 Carbon Dioxide 29.0 mmol/L (21.0-32.0) 04/20/19 06:35 Anion Gap 7.0 mmol/L (3-11) 04/20/19 06:35 BUN 15 mg/dL (7-18) 04/20/19 06:35 Creatinine 0.99 mg/dL (0.70-1.30) 04/20/19 06:35 Estimated GFR/1.73 m2 >= 60.00 (mL/min/1.73m2) 04/20/19 06:35 Glucose 95 mg/dL (74-106) D 04/20/19 06:35 Lactate 0.6 mmol/L (0.6-1.4) 04/15/19 11:55 Calcium 8.4 mg/dL (8.5-10.1) L 04/20/19 06:35 Magnesium 1.9 mg/dL (1.8-2.4) 04/18/19 09:20 Total Bilirubin 0.5 mg/dL (0.2-1.0) 04/14/19 07:10 AST 32 U/L (15-37) 04/14/19 07:10 ALT 38 U/L (16-63) 04/14/19 07:10 Alkaline Phosphatase 80 U/L (46-116) 04/14/19 07:10 Creatine Kinase 107 U/L (39-308) 04/15/19 11:55 C-Reactive Protein 10.77 mg/dL (0.0-0.3) H 04/20/19 06:35 Total Protein 7.4 g/dL (6.4-8.2) 04/14/19 07:10 Albumin 3.0 g/dL (3.4-5.0) L 04/14/19 07:10 Procalcitonin 2.2 ng/mL 04/16/19 07:55 Vancomycin Trough 21.7 ug/mL (10.0-20.0) H* 04/19/19 17:25
--- NOTE | 2019-04-20 13:41 | PHACLINREV_ITS ---
Pharmacy Clinical Review - Admission Clinical Review (Last Updated 04/14/19 @ 07:32 by Malvin Brown MD) Opioid abuse (Acute) Tobacco abuse (Acute) Discharge planning issues (Acute) DVT prophylaxis (Acute) Cellulitis of left leg (Acute) No Known Allergies Allergy (Unverified 04/14/19 07:09) Height 6 ft 1 in Weight 100.9 kg - Renal Dosing Renal Dosing: BUN 15 mg/dL (7-18) 04/20/19 06:35 Creatinine 0.99 mg/dL (0.70-1.30) 04/20/19 06:35 Medications needing adjustments: N/A (Crcl ~104 mL/min [facility]) - Anticoagulation Anticoagulation: Hgb 10.2 g/dL (13.5-17.5) L 04/20/19 05:35 Hct 31.2 % (40.0-50.0) L 04/20/19 05:35 Plt Count 361 x1000/uL (130-400) D 04/20/19 05:35 Creatinine 0.99 mg/dL (0.70-1.30) 04/20/19 06:35 DVT Prohphylaxis: Reviewed Medications: Enoxaparin Therapeutic Anticoagulation: N/A - Opiate Usage Evaluate Pain Scale/Pains Meds: Reviewed Scheduled Bowel Reg ordered if on Opiates?: Yes (scheduled docusate) - Relevant Labs ESR 117 mm/hr (0-15) H 04/20/19 05:35 Sodium 140 mmol/L (136-145) 04/20/19 06:35 Potassium 3.9 mmol/L (3.5-5.1) 04/20/19 06:35 Chloride 104 mmol/L (98-107) 04/20/19 06:35 Magnesium 1.9 mg/dL (1.8-2.4) 04/18/19 09:20 C-Reactive Protein 10.77 mg/dL (0.0-0.3) H 04/20/19 06:35 Electrolytes, C-Reactive P, ESR: Reviewed (CRP trending down) - Antimicrobial Stewardship Antibiotic appropriateness: Reviewed Surgical Abx d/c within 24 hr: N/A De-escalation: Yes (changed to penicillin and clindamycin yesterday(day 2 starts this evening) from vanco/zosyn(completed 6 days)) Culture review/Resistance: Reviewed (blood and wound cultures no growth at 72 hours, MRSA screen negative) IV to PO Switch: No - DM Control DM Control: Glucose 95 mg/dL (74-106) D 04/20/19 06:35 Insulin Dosing: N/A - Heart Failure/OR EF%, MERLYN's, B-Blockers, Diuretics: N/A - BP Control BP Control: Blood Pressure 120/75 Blood Pressure 121/76 If elevated: N/A - QTc Review If Elevated: N/A - IV to PO Switch IV Medications: N/A - Home Meds Home Med List reviewed: Reviewed Relevent Home Meds Not ordered & why?: cephalexin and bactrim (has other antibiotics ordered), ibuprofen PRN - Current meds Current Medication Order Review: Reviewed (LENS CUTTER aware clindamycin dosing is on the high side)
[2019-04-20] MEDS: Enoxaparin 40 MG/0.4 ML SYR SC (14:17)
[2019-04-20] MEDS: Clotrimazole 1% 15 GM TUBE TP ×2 (14:18→20:30)
--- NOTE | 2019-04-20 17:11 | CMPROGNOTE_ITS ---
- If Service Date Differs Date of service: 04/20/19 Time of Service: 17:11 Care Management Progress Note S/O: Enzo was sitting up in bed when CM met with him. He was expressing concern about having his dressing changed again. He stated that his dressing had already been changed this morning but was going to be taken down again so that both providers can see his wound. Dressing changes tend to be painful for him since the dressings adhere to his open wound. According to both providers, his wounds appears much improved. Enzo's antibiotic regimen was changed yesterday to cover different organisms. Enzo also shared a lot of his concerns about discharge. He stated he has no money, no clothes, no job, no PCP and no place to live. He admitted to feeling anxious. CM discussed options and Enzo acknowledged that he had reapplied for Medicaid, so would have insurance. He is also going to [employer] to see what help he can receive with food and possible housing funding. CM will support and assist Enzo with addressing and/or resolving these issues prior to discharge. A: Enzo is a 48 year old man admitted on 04/14/19 with severe cellulitis of his LLE. P: CM [facility] at one hour before discharge to arrange transportation for Enzo. He will return to long term until he is released in early April. If he requires extensive antibiotic therapy, he may remain hospitalized beyond his release date; to be determined. Enzo will follow up with the facility provider/PCP and plan of care as prescribed. CM will continue to support Enzo and discharge planning considerations.
[2019-04-20 17:15] VITALS: BP 129/70; PULSE 84; RESP 12; TEMP 37.5; O2SAT 98
--- NOTE | 2019-04-21 | DI.US_ITS ---
EXAM: US LOWER EXTREMITY VENOUS LT US LOWER EXTREMITY VENOUS LT CLINICAL HISTORY: increased erythema, firm area to left thigh. increased erythema, firm area to left thigh TECHNIQUE: Lower extremity venous ultrasound performed using grayscale, color-flow, and spectral Dop pler analysis. COMPARISON: No exams were available for comparison FINDINGS: The common femoral, femoral and popliteal veins demonstrate normal compressibility, augmentation, and color Doppler. The posterior tibial veins are patent. The saphenous vein appears free of thrombus. No Alva's cyst or hematoma is seen. There are mildly enlarged groin lymph nodes with normal morphol ogy. There is edema of the subcutaneous fat of the lower leg. No drainable collection is seen. IMPRESSION: No evidence of DVT. DATA REPOSITORY:
[2019-04-21 00:20] VITALS: BP 123/78; PULSE 76; RESP 19; TEMP 36.6; O2SAT 98
[2019-04-21] MEDS: CLINDAMYCIN 900 MG/50 ML BAG 50 MG IVPB ×4 (02:40→20:34)
[2019-04-21] MEDS: oxyCODONE 5 MG TAB 10 MG PO ×5 (02:43→19:54)
[2019-04-21] MEDS: Acetaminophen 500 MG TAB 1000 MG PO ×3 (04:30→19:54)
[2019-04-21] MEDS: HYDROmorphone 2 MG/ML VIAL IVP ×3 (06:23→18:51)
[2019-04-21] MEDS: Normal Saline Flush 10 ML SYR IVP ×6 (06:24→17:33)
[2019-04-21 07:50] VITALS: BP 135/83; PULSE 78; RESP 18; TEMP 36.6; O2SAT 98
[2019-04-21] MEDS: Lactobacillus Acidophilus CAP 1 CAP PO ×3 (08:19→20:34)
[2019-04-21] MEDS: Docusate Sodium 100 MG CAP PO ×2 (08:19→20:34)
--- NOTE | 2019-04-21 10:13 | W.PM.PROGNOT ---
Date of Service Date of service: 04/21/19 Time of Service: 10:13 Assessment and Plan Assessment and plan (1) Cellulitis of left leg: Start date: 04/21/19 Start time: 10:18 Status: Acute Assessment and plan: improvement overnight with antibiotic changes. less drainage and edema. Concern for possible dvt to LLE thigh given firm palpable area with erythema. clindamycin and penicillin day 3. continue elevation and dressing changes. (2) Opioid abuse: Start date: 04/21/19 Start time: 10:19 Status: Acute Assessment and plan: continue suboxone, taper prn medications as able. (3) Tobacco abuse: Start date: 04/21/19 Start time: 10:19 Status: Acute Assessment and plan: nicotine replacement while hospitalized (4) DVT prophylaxis: Start date: 04/21/19 Start time: 10:19 Status: Acute Assessment and plan: enoxaparin daily (5) Discharge planning issues: Start date: 04/21/19 Start time: 10:19 Status: Acute Assessment and plan: CM working on placement for discharge. Subjective Subjective Patient reports: other Interval history since last seen: Pain overall improving. Left thigh with worsening erythema and firm area to left thigh. Stat u/s ordered. unable to obtain blood off of midline, tpa ordered. Eating and voiding without difficulty. Denies CP, SOB, N/V/D. Exam Narrative Exam Narrative: Const: Sitting up in bed, NAD Eyes: PERRLA, EOMI Neck: no lymphedema, goiter or carotid upstroke Chest: symmetrical, atraumatic Resp: Even unlabored. Able to complete sentences without difficulty Cardio: RRR no murmurs appreciated GI: Abd soft nontender, b.s. x 4 Skin: erthyema with firm thigh to LLE, PPP with strong pulse. skin sloughing. blisters broken. Swelling trace. Objective Objective Clinical Data: Vital Signs Temperature 36.6 C 04/21/19 00:20 Temperature Source Skin 04/21/19 00:20 Pulse 76 04/21/19 00:20 Pulse Rhythm Regular 04/21/19 07:40 Pulse 84 04/14/19 11:30 Respiratory Rate 19 04/21/19 00:20 Respiratory Effort 04/21/19 07:40 Respiratory Depth Normal 04/21/19 07:40 Respiratory Pattern Normal 04/21/19 07:40 Blood Pressure 123/78 04/21/19 00:20 Blood Pressure Mean 76 04/14/19 11:30 Blood Pressure Position Sitting 04/14/19 06:58 Pulse Oximetry 98 04/21/19 00:20 Oxygen Delivery Method Room Air 04/21/19 00:20 Oxygen Flow Rate 0 04/21/19 00:20 Pain Level 4 04/21/19 08:21 Comment 04/19/19 16:10 Intake & Output 04/20/19 04/20/19 04/21/19 11:59 23:59 11:59 Intake Total 100 / 1580 1480 / 1580 150 / 150 Output Total 950 / 950 1999 / 1999 Balance 100 / 630 530 / 630 -1850 / -1850 Intake: IV 100 / 380 280 / 380 150 / 150 Oral 1200 / 1200 Output: Urine 950 / 950 1999 Other: Urine Color Yellow Pale Yellow Urine Appearance Clear Clear Clear Urine Odor Normal None Comment several voids t/o morning Voiding Methods Urinal Urinal Laboratory Results WBC Cancelled 04/21/19 08:48 RBC Cancelled 04/21/19 08:48 Hgb Cancelled 04/21/19 08:48 Hct Cancelled 04/21/19 08:48 MCV Cancelled 04/21/19 08:48 MCH Cancelled 04/21/19 08:48 MCHC Cancelled 04/21/19 08:48 RDW Cancelled 04/21/19 08:48 Plt Count Cancelled 04/21/19 08:48 MPV Cancelled 04/21/19 08:48 Immature Gran % Cancelled 04/21/19 08:48 Neutrophils % Cancelled 04/21/19 08:48 Band Neutrophils % Cancelled 04/21/19 08:48 Lymphocytes % Cancelled 04/21/19 08:48 Atypical Lymphs % Cancelled 04/21/19 08:48 Monocytes % Cancelled 04/21/19 08:48 Eosinophils % Cancelled 04/21/19 08:48 Basophils % Cancelled 04/21/19 08:48 Metamyelocytes % Cancelled 04/21/19 08:48 Myelocytes % Cancelled 04/21/19 08:48 Promyelocytes % Cancelled 04/21/19 08:48 Absolute Neutrophils Cancelled 04/21/19 08:48 Absolute Lymphocytes Cancelled 04/21/19 08:48 Absolute Monocytes Cancelled 04/21/19 08:48 Absolute Eosinophils Cancelled 04/21/19 08:48 Absolute Basophils Cancelled 04/21/19 08:48 Nucleated RBCs Cancelled 04/21/19 08:48 Differential Comment Cancelled 04/21/19 08:48 Other Cell Type Cancelled 04/21/19 08:48 RBC Morphology Cancelled 04/21/19 08:48 Polychromasia Cancelled 04/21/19 08:48 Hypochromasia Cancelled 04/21/19 08:48 Poikilocytosis Cancelled 04/21/19 08:48 Basophilic Stippling Cancelled 04/21/19 08:48 Anisocytosis Cancelled 04/21/19 08:48 Microcytosis Cancelled 04/21/19 08:48 Macrocytosis Cancelled 04/21/19 08:48 Spherocytes Cancelled 04/21/19 08:48 Target Cells Cancelled 04/21/19 08:48 Tear Drop Cells Cancelled 04/21/19 08:48 Ovalocytes Cancelled 04/21/19 08:48 Stomatocytes Cancelled 04/21/19 08:48 Bee-[place] Bodies Cancelled 04/21/19 08:48 Manny Cells Cancelled 04/21/19 08:48 Acanthocytes (Spur) Cancelled 04/21/19 08:48 Schistocytes Cancelled 04/21/19 08:48 ESR 117 mm/hr (0-15) H 04/20/19 05:35 Sodium 140 mmol/L (136-145) 04/20/19 06:35 Potassium 3.9 mmol/L (3.5-5.1) 04/20/19 06:35 Chloride 104 mmol/L (98-107) 04/20/19 06:35 Carbon Dioxide 29.0 mmol/L (21.0-32.0) 04/20/19 06:35 Anion Gap 7.0 mmol/L (3-11) 04/20/19 06:35 BUN 15 mg/dL (7-18) 04/20/19 06:35 Creatinine 0.99 mg/dL (0.70-1.30) 04/20/19 06:35 Estimated GFR/1.73 m2 >= 60.00 (mL/min/1.73m2) 04/20/19 06:35 Glucose 95 mg/dL (74-106) D 04/20/19 06:35 Lactate 0.6 mmol/L (0.6-1.4) 04/15/19 11:55 Calcium 8.4 mg/dL (8.5-10.1) L 04/20/19 06:35 Magnesium 1.9 mg/dL (1.8-2.4) 04/18/19 09:20 Total Bilirubin 0.5 mg/dL (0.2-1.0) 04/14/19 07:10 AST 32 U/L (15-37) 04/14/19 07:10 ALT 38 U/L (16-63) 04/14/19 07:10 Alkaline Phosphatase 80 U/L (46-116) 04/14/19 07:10 Creatine Kinase 107 U/L (39-308) 04/15/19 11:55 C-Reactive Protein 10.77 mg/dL (0.0-0.3) H 04/20/19 06:35 Total Protein 7.4 g/dL (6.4-8.2) 04/14/19 07:10 Albumin 3.0 g/dL (3.4-5.0) L 04/14/19 07:10 Procalcitonin 2.2 ng/mL 04/16/19 07:55 Vancomycin Trough 21.7 ug/mL (10.0-20.0) H* 04/19/19 17:25
[2019-04-21] MEDS: Clotrimazole 1% 15 GM TUBE TP ×2 (11:19→19:56)
[2019-04-21 13:46] LABS: Anion Gap 6.4 mmol/L (3-11); BUN 14 mg/dL (7-18); CO2 29.6 mmol/L (21.0-32.0); CREATININE 0.99 mg/dL (0.70-1.30); Calcium 8.7 mg/dL (8.5-10.1); Chloride 102 mmol/L (98-107); Glucose 96 mg/dL (74-106); Magnesium 2.3 mg/dL (1.8-2.4); Potassium 4.4 mmol/L (3.5-5.1); Sodium 138 mmol/L (136-145)
[2019-04-21 13:53] LABS: Abs Immature Grans 0.06 k/cumm (0.0-0.09); Absolute Basophil Count 0.02 k/cumm (0.0-0.2); Absolute Lymphocyte Count 0.78 k/cumm (1.2-3.4); Absolute Monocyte Count 0.48 k/cumm (0.11-0.7); Absolute Neutrophil Count 4.64 k/cumm (1.2-6.7); Basophils % 0.3; Eosinophils % 3.2; HCT 33.2 % (40.0-50.0); Lymphocytes % 12.6; Mean Corp. HGB Concentration 33.1 g/dL (32.0-36.0); Mean Corpuscular Hemoglobin 32.1 pg (27.0-33.0); Mean Corpuscular Volume 96.8 fL (80-95); Mean Platelet Volume 9.2 fL (8.0-11.0); Monocytes % 7.8; Neutrophils % 75.1; Platelet Count 446 x1000/uL (130-400); RBC 3.43 m/cumm (4.50-6.00); RBC Distribution Width 12.9 % (11.8-14.1); White Blood Cell Count 6.18 k/cumm (4.4-10.8)
[2019-04-21] MEDS: Enoxaparin 40 MG/0.4 ML SYR SC (14:13)
[2019-04-21] MEDS: Normal Saline 500 ML 30 ML IVPB (14:35)
[2019-04-21 15:11] LABS: C-Reactive Protein 8.99 mg/dL (0.0-0.3)
[2019-04-21 16:15] VITALS: BP 134/85; PULSE 86; RESP 16; TEMP 36.5; O2SAT 96
--- NOTE | 2019-04-21 17:11 | CMPROGNOTE_ITS ---
- If Service Date Differs Date of service: 04/21/19 Time of Service: 17:11 Care Management Progress Note S/O: Enzo was sitting up in bed when CM met with him. He had just returned from having an ultrasound to rule out a DVT. Enzo shared that he had received a visit from Vince Foote, his rehabilitation caseworker and main support at corrections. Vince stated that he would try to have Enzo's clothing and belongings delivered to him at [facility]. He also shared that Enzo's Medicaid had been approv ed as had his food assistance. CM discussed various options for housing with Enzo and some of what Economic services may be able to help with. CM was able to locate some appropriate sized clothing for Enzo in the [employer] clothing closet. A winter coat and shoes are still needed. A: Enzo is a 48 year old man admitted on 04/14/19 with severe cellulitis of his LLE. P: Enzo will likely be released into the community at the time of discharge. He is working with corrections staff to secure financial support, food and needed services. BONNY is also supporting Enzo with finding some clothing, obtaining a PCP and investigating housing options. If Enzo requires extensive antibiotic therapy, he may remain hospitalized beyond his release date; to be determined. CM will continue to support Enzo and discharge planning considerations.
[2019-04-21] MEDS: Heparin 500 UNITS/5 ML SYRINGE IVP (18:56)
[2019-04-21 23:10] VITALS: BP 117/75; PULSE 74; RESP 18; TEMP 37.9; O2SAT 99
[2019-04-22] MEDS: oxyCODONE 5 MG TAB 10 MG PO ×5 (00:17→22:10)
[2019-04-22] MEDS: HYDROmorphone 2 MG/ML VIAL IVP ×4 (00:50→19:50)
[2019-04-22] MEDS: Normal Saline Flush 10 ML SYR IVP ×7 (00:50→19:49)
[2019-04-22] MEDS: Acetaminophen 500 MG TAB 1000 MG PO ×3 (02:02→16:53)
[2019-04-22] MEDS: CLINDAMYCIN 900 MG/50 ML BAG 50 MG IVPB ×4 (02:56→19:51)
[2019-04-22] MEDS: Lactobacillus Acidophilus CAP 1 CAP PO ×3 (07:39→19:51)
[2019-04-22] MEDS: Docusate Sodium 100 MG CAP PO ×2 (07:39→19:50)
[2019-04-22] MEDS: Clotrimazole 1% 15 GM TUBE TP ×2 (07:39→21:11)
[2019-04-22 07:40] VITALS: BP 120/74; PULSE 78; RESP 16; TEMP 36.5; O2SAT 97
[2019-04-22] MEDS: Heparin 500 UNITS/5 ML SYRINGE IVP ×2 (08:04→19:51)
[2019-04-22 08:24] LABS: Abs Immature Grans 0.03 k/cumm (0.0-0.09); Absolute Basophil Count 0.03 k/cumm (0.0-0.2); Absolute Eosinophil Count 0.27 k/cumm (0.0-0.7); Absolute Lymphocyte Count 0.87 k/cumm (1.2-3.4); Absolute Monocyte Count 0.58 k/cumm (0.11-0.7); Basophils % 0.6; Eosinophils % 5.1; HCT 32.9 % (40.0-50.0); HGB 10.9 g/dL (13.5-17.5); Immature Grans % 0.6 %; Lymphocytes % 16.5; Mean Corp. HGB Concentration 33.1 g/dL (32.0-36.0); Mean Corpuscular Hemoglobin 31.9 pg (27.0-33.0); Mean Corpuscular Volume 96.2 fL (80-95); Mean Platelet Volume 9.1 fL (8.0-11.0); Neutrophils % 66.2; Platelet Count 517 x1000/uL (130-400); RBC 3.42 m/cumm (4.50-6.00); RBC Distribution Width 12.8 % (11.8-14.1); White Blood Cell Count 5.28 k/cumm (4.4-10.8)
[2019-04-22 08:27] LABS: Anion Gap 6.8 mmol/L (3-11); BUN 14 mg/dL (7-18); CO2 30.2 mmol/L (21.0-32.0); CREATININE 0.95 mg/dL (0.70-1.30); Calcium 8.3 mg/dL (8.5-10.1); Chloride 102 mmol/L (98-107); Glucose 101 mg/dL (74-106); Magnesium 2.2 mg/dL (1.8-2.4); Potassium 4.6 mmol/L (3.5-5.1); Sodium 139 mmol/L (136-145)
[2019-04-22] MEDS: Ibuprofen 600 MG TAB PO ×2 (12:05→19:50)
[2019-04-22] MEDS: Enoxaparin 40 MG/0.4 ML SYR SC (13:14)
--- NOTE | 2019-04-22 13:25 | W.PM.PROGNOT ---
Date of Service Date of service: 04/22/19 Time of Service: 13:25 Assessment and Plan Assessment and plan (1) Cellulitis of left leg: Start date: 04/22/19 Start time: 13:28 Status: Acute Assessment and plan: Improvment in erythema to left thigh. less drainage and edema to overall extremity. Ultrasound negative for DVT. clindamycin and penicillin day 4. continue elevation and dressing changes. CRP trending down. (2) Opioid abuse: Start date: 04/22/19 Start time: 13:34 Status: Acute Assessment and plan: continue suboxone, taper prn medications as able. (3) Tobacco abuse: Start date: 04/22/19 Start time: 13:34 Status: Acute Assessment and plan: nicotine replacement while hospitalized (4) DVT prophylaxis: Start date: 04/22/19 Start time: 13:34 Status: Acute Assessment and plan: enoxaparin daily (5) Discharge planning issues: Start date: 04/22/19 Start time: 13:34 Status: Acute Assessment and plan: CM working on placement for discharge. Above case discussed with Dr. Bhardwaj who is in agreement. Subjective Subjective Patient reports: feels better Interval history since last seen: Pain is improving. CRP trending down. Ibuprofen added to pain regimen. Continue to monitor. Exam Narrative Exam Narrative: Const: Sitting up in bed, NAD Eyes: PERRLA, EOMI Neck: no lymphedema, goiter or carotid upstroke Chest: symmetrical, atraumatic Resp: Even unlabored. Able to complete sentences without difficulty Cardio: RRR no murmurs appreciated GI: Abd soft nontender, b.s. x 4 Skin: erthyema with firm thigh to LLE improving. Erythema receding. Calf size 45 mm, down from 46. PPP with strong pulse. skin sloughing. blisters broken. Swelling trace. Objective Objective Clinical Data: Abnormal lab results 04/21/19 04/21/19 04/22/19 Range/Units 13:20 13: 08:00 RBC 3.43 L (4.50-6.00) m/cumm Hgb 11.0 L (13.5-17.5) g/dL Hct 33.2 L (40.0-50.0) % MCV 96.8 H (80-95) fL Plt Count 446 H (130-400) x1000/uL Absolute Lymphocytes 0.78 L (1.2-3.4) k/cumm Calcium 8.3 L (8.5-10.1) mg/dL C-Reactive Protein 8.99 H (0.0-0.3) mg/dL 04/22/19 Range/Units 08:00 RBC 3.42 L (4.50-6.00) m/cumm Hgb 10.9 L (13.5-17.5) g/dL Hct 32.9 L (40.0-50.0) % MCV 96.2 H (80-95) fL Plt Count 517 H (130-400) x1000/uL Absolute Lymphocytes 0.87 L (1.2-3.4) k/cumm Calcium (8.5-10.1) mg/dL C-Reactive Protein (0.0-0.3) mg/dL Vital Signs Temperature 36.5 C 04/22/19 07:40 Temperature Source Tympanic 04/22/19 07:40 Pulse 78 04/22/19 07:40 Pulse Rhythm Regular 04/22/19 09:44 Pulse 84 04/14/19 11:30 Respiratory Rate 16 04/22/19 07:40 Respiratory Effort 04/22/19 09:44 Respiratory Depth Normal 04/22/19 09:44 Respiratory Pattern Normal 04/22/19 09:44 Blood Pressure 120/74 04/22/19 07:40 Blood Pressure Mean 76 04/14/19 11:30 Blood Pressure Position Sitting 04/14/19 06:58 Pulse Oximetry 97 04/22/19 07:40 Oxygen Delivery Method Room Air 04/22/19 07:40 Oxygen Flow Rate 0 04/22/19 07:40 Pain Level 6 04/22/19 13:14 Comment 04/19/19 16:10 Intake & Output 04/21/19 04/22/19 04/22/19 23:59 11:59 23:59 Intake Total 610 / 1300 620 / 620 Output Total 700 / 2700 Balance -90 / -1400 620 / 620 Intake: IV 250 / 450 250 / 250 Oral 360 / 850 370 / 370 Output: Urine 700 / 2700 Other: Urine Color Yellow Yellow Urine Appearance Clear Clear Urine Odor None Comment per patient Voiding Methods Urinal Toilet Laboratory Results WBC 5.28 k/cumm (4.4-10.8) 04/22/19 08:00 RBC 3.42 m/cumm (4.50-6.00) L 04/22/19 08:00 Hgb 10.9 g/dL (13.5-17.5) L 04/22/19 08:00 Hct 32.9 % (40.0-50.0) L 04/22/19 08:00 MCV 96.2 fL (80-95) H 04/22/19 08:00 MCH 31.9 pg (27.0-33.0) 04/22/19 08:00 MCHC 33.1 g/dL (32.0-36.0) 04/22/19 08:00 RDW 12.8 % (11.8-14.1) 04/22/19 08:00 Plt Count 517 x1000/uL (130-400) H 04/22/19 08:00 MPV 9.1 fL (8.0-11.0) 04/22/19 08:00 Immature Gran % 0.6 % 04/22/19 08:00 Neutrophils % 66.2 04/22/19 08:00 Band Neutrophils % Cancelled 04/21/19 08:48 Lymphocytes % 16.5 04/22/19 08:00 Atypical Lymphs % Cancelled 04/21/19 08:48 Monocytes % 11.0 04/22/19 08:00 Eosinophils % 5.1 04/22/19 08:00 Basophils % 0.6 04/22/19 08:00 Metamyelocytes % Cancelled 04/21/19 08:48 Myelocytes % Cancelled 04/21/19 08:48 Promyelocytes % Cancelled 04/21/19 08:48 Absolute Neutrophils 3.50 k/cumm (1.2-6.7) 04/22/19 08:00 Absolute Lymphocytes 0.87 k/cumm (1.2-3.4) L 04/22/19 08:00 Absolute Monocytes 0.58 k/cumm (0.11-0.7) 04/22/19 08:00 Absolute Eosinophils 0.27 k/cumm (0.0-0.7) 04/22/19 08:00 Absolute Basophils 0.03 k/cumm (0.0-0.2) 04/22/19 08:00 Nucleated RBCs Cancelled 04/21/19 08:48 Differential Comment Cancelled 04/21/19 08:48 Other Cell Type Cancelled 04/21/19 08:48 RBC Morphology Cancelled 04/21/19 08:48 Polychromasia Cancelled 04/21/19 08:48 Hypochromasia Cancelled 04/21/19 08:48 Poikilocytosis Cancelled 04/21/19 08:48 Basophilic Stippling Cancelled 04/21/19 08:48 Anisocytosis Cancelled 04/21/19 08:48 Microcytosis Cancelled 04/21/19 08:48 Macrocytosis Cancelled 04/21/19 08:48 Spherocytes Cancelled 04/21/19 08:48 Target Cells Cancelled 04/21/19 08:48 Tear Drop Cells Cancelled 04/21/19 08:48 Ovalocytes Cancelled 04/21/19 08:48 Stomatocytes Cancelled 04/21/19 08:48 Bee-[place] Bodies Cancelled 04/21/19 08:48 [place] Cells Cancelled 04/21/19 08:48 Acanthocytes (Spur) Cancelled 04/21/19 08:48 Schistocytes Cancelled 04/21/19 08:48 ESR 117 mm/hr (0-15) H 04/20/19 05:35 Sodium 139 mmol/L (136-145) 04/22/19 08:00 Potassium 4.6 mmol/L (3.5-5.1) 04/22/19 08:00 Chloride 102 mmol/L (98-107) 04/22/19 08:00 Carbon Dioxide 30.2 mmol/L (21.0-32.0) 04/22/19 08:00 Anion Gap 6.8 mmol/L (3-11) 04/22/19 08:00 BUN 14 mg/dL (7-18) 04/22/19 08:00 Creatinine 0.95 mg/dL (0.70-1.30) 04/22/19 08:00 Estimated GFR/1.73 m2 >= 60.00 (mL/min/1.73m2) 04/22/19 08:00 Glucose 101 mg/dL (74-106) 04/22/19 08:00 Lactate 0.6 mmol/L (0.6-1.4) 04/15/19 11:55 Calcium 8.3 mg/dL (8.5-10.1) L 04/22/19 08:00 Magnesium 2.2 mg/dL (1.8-2.4) 04/22/19 08:00 Total Bilirubin 0.5 mg/dL (0.2-1.0) 04/14/19 07:10 AST 32 U/L (15-37) 04/14/19 07:10 ALT 38 U/L (16-63) 04/14/19 07:10 Alkaline Phosphatase 80 U/L (46-116) 04/14/19 07:10 Creatine Kinase 107 U/L (39-308) 04/15/19 11:55 C-Reactive Protein 8.99 mg/dL (0.0-0.3) H 04/21/19 13:20 Total Protein 7.4 g/dL (6.4-8.2) 04/14/19 07:10 Albumin 3.0 g/dL (3.4-5.0) L 04/14/19 07:10 Procalcitonin 2.2 ng/mL 04/16/19 07:55 Vancomycin Trough 21.7 ug/mL (10.0-20.0) H* 04/19/19 17:25
--- NOTE | 2019-04-22 13:33 | PDOC.CMPRO ---
- If Service Date Differs Date of service: 04/22/19 Time of Service: 13:33 Care Management Progress Note S/O: Enzo was sitting up in bed when CM met with him. He reported that he was feeling better today, and that his leg appeared to be improving. He reported that his belongings were delivered from the assisted, so when he is [facility] from [facility] he will return to the [facility] [place]. Per Enzo's rifle case repairer from corrections, his HEATHER has been approved, as well as his food assistance. CM will assist in housing options and finding appropriate clothing for Enzo prior to discharge. Enzo stated that he expects to be here through the weekend, per provider. CM will continue to follow. A: nEzo is a 48 year old man admitted on 04/14/19 with severe cellulitis of his LLE. P: Enzo will likely be released into the community at the time of discharge. He is working with corrections staff to secure financial support, food and needed services. CM is also supporting Enzo with finding some clothing, obtaining a PCP and investigating housing options. If Enzo requires extensive antibiotic therapy, he may remain hospitalized beyond his release date; to be determined. CM will continue to support Enzo and discharge planning considerations.
[2019-04-22 16:50] VITALS: BP 108/70; PULSE 54; RESP 16; TEMP 36.4; O2SAT 95
[2019-04-22 23:08] VITALS: BP 123/83; PULSE 72; RESP 18; TEMP 36.5; O2SAT 98
[2019-04-23] MEDS: CLINDAMYCIN 900 MG/50 ML BAG 50 MG IVPB ×4 (02:58→20:50)
[2019-04-23] MEDS: Ibuprofen 600 MG TAB PO ×3 (03:31→20:50)
[2019-04-23] MEDS: oxyCODONE 5 MG TAB 10 MG PO ×4 (03:32→20:20)
[2019-04-23] MEDS: HYDROmorphone 2 MG/ML VIAL IVP ×3 (07:07→20:19)
[2019-04-23] MEDS: Acetaminophen 500 MG TAB 1000 MG PO ×2 (07:07→13:30)
[2019-04-23] MEDS: Normal Saline Flush 10 ML SYR IVP ×6 (07:07→16:49)
[2019-04-23 07:35] LABS: Abs Immature Grans 0.03 k/cumm (0.0-0.09); Absolute Basophil Count 0.07 k/cumm (0.0-0.2); Absolute Eosinophil Count 0.29 k/cumm (0.0-0.7); Absolute Lymphocyte Count 0.98 k/cumm (1.2-3.4); Absolute Monocyte Count 0.37 k/cumm (0.11-0.7); Absolute Neutrophil Count 2.08 k/cumm (1.2-6.7); Basophils % 1.8; Eosinophils % 7.6; HCT 34.1 % (40.0-50.0); HGB 11.3 g/dL (13.5-17.5); Immature Grans % 0.8 %; Lymphocytes % 25.7; Mean Corp. HGB Concentration 33.1 g/dL (32.0-36.0); Mean Corpuscular Volume 96.6 fL (80-95); Monocytes % 9.7; Neutrophils % 54.4; Platelet Count 570 x1000/uL (130-400); RBC 3.53 m/cumm (4.50-6.00); White Blood Cell Count 3.82 k/cumm (4.4-10.8)
[2019-04-23 07:47] LABS: Anion Gap 6.9 mmol/L (3-11); BUN 18 mg/dL (7-18); CO2 30.1 mmol/L (21.0-32.0); CREATININE 0.88 mg/dL (0.70-1.30); Calcium 8.9 mg/dL (8.5-10.1); Chloride 103 mmol/L (98-107); Glucose 89 mg/dL (74-106); Potassium 5.2 mmol/L (3.5-5.1); Sodium 140 mmol/L (136-145)
[2019-04-23 07:49] LABS: C-Reactive Protein 5.08 mg/dL (0.0-0.3)
[2019-04-23 07:50] VITALS: BP 105/71; PULSE 80; RESP 16; TEMP 37; O2SAT 97
[2019-04-23] MEDS: Heparin 500 UNITS/5 ML SYRINGE IVP ×2 (07:58→23:02)
[2019-04-23] MEDS: Lactobacillus Acidophilus CAP 1 CAP PO ×3 (07:58→20:50)
[2019-04-23] MEDS: Docusate Sodium 100 MG CAP PO ×2 (07:58→20:50)
[2019-04-23] MEDS: Clotrimazole 1% 15 GM TUBE TP ×2 (07:59→20:50)
--- NOTE | 2019-04-23 09:20 | DI.CT_ITS ---
EXAM: CT LOWER EXTREMITY LT W CLINICAL HISTORY: erythema, cellulitis TECHNIQUE: Post IV contrast from the hip through the knee. COMPARISON: CT LOWER EXTREMITY LT W from 04/14/2019 FINDINGS: No fracture or bony erosions are seen. There is increased edema seen in the subcutaneous fat of the t high, greatest laterally. No drainable abscess or fluid collection is seen. There is no evidence of a ir in the soft tissues. The vessels appear patent. A small joint effusion is seen. There are degenera tive changes of the patellofemoral joint. IMPRESSION: Interval worsening edema in the subcutaneous fat. No drainable abscess or fluid collection.
[2019-04-23] MEDS: Omnipaque 350 MG/ML 100 ML BTL IJ (09:26)
--- NOTE | 2019-04-23 09:45 | DI.VRAD_ITS ---
PROCEDURE INFORMATION: Exam: CT Left Lower Extremity With Contrast; Thigh Exam date and time: 04/23/2019 8:42 AM Age: 48 years old Clinical indication: Cellulitis and other: Erythema; Thigh; Left TECHNIQUE: Imaging protocol: CT of the Left lower extremity with intravenous contrast was performed. Exam focused on the thigh. Contrast material: OMNIPAQUE 350; Contrast volume: 100 ml; Contrast route: IV RAC; COMPARISON: CT LOWER EXTREMITY LT W 04/14/2019 9:02 AM FINDINGS: Bones/joints: The hip and knee joints are normally aligned. There again appears to be a very small knee joint effusion. No acute fracture is identified. There is no osseous erosion or cortical destruction. Soft tissues: There is progressive subcutaneous edema, more circumferential about the thigh and now extending more proximally into the proximal thigh and buttock laterally. No discrete collection to suggest abscess is identified, nor is any abnormal soft tissue gas. Other findings: The visualized intrapelvic structures appear unremarkable. IMPRESSION: 1. Progressive subcutaneous edema as compared with 04/14/19, more circumferential about the thigh and now extending more proximally into the proximal thigh and buttock laterally. 2. No discrete abscess, abnormal soft tissue gas or CT evidence for osteomyelitis. 3. Persistent apparent very small knee joint effusion. Dictated and Authenticated by: Los Oliva MD. Ordering:ANNAMARIE Skelton MD
[2019-04-23] MEDS: Enoxaparin 40 MG/0.4 ML SYR SC (13:30)
--- NOTE | 2019-04-23 13:37 | W.PM.PROGNOT ---
Date of Service Date of service: 04/23/19 Time of Service: 13:37 Assessment and Plan Assessment and plan (1) Cellulitis of left leg: Start date: 04/23/19 Start time: 13:40 Status: Acute Assessment and plan: Improvment in erythema to left thigh. CT scan r/o abscess, imaging with edema no abscess, mass or soft tissue gas. less drainage and edema to overall extremity. clindamycin day 4 PCN dcd due hyperkalemia. Postassium trending up over last couple days, changed to oxicillin. continue elevation and dressing changes. CRP trending down to 5.08. Patient is doing well and would benefit from swing bed status. Likely tomorrow. (2) Opioid abuse: Start date: 04/23/19 Start time: 13:42 Status: Acute Assessment and plan: continue suboxone, taper prn medications as able. (3) Tobacco abuse: Start date: 04/23/19 Start time: 13:42 Status: Acute Assessment and plan: nicotine replacement while hospitalized (4) DVT prophylaxis: Start date: 04/23/19 Start time: 13:42 Status: Acute Assessment and plan: enoxaparin daily (5) Discharge planning issues: Start date: 04/23/19 Start time: 13:44 Status: Acute Assessment and plan: Patient would benefit from swing bed status while receiving antibiotics. Above case discussed with Dr. Bhardwaj who is in agreement. Subjective Subjective Patient reports: no new complaints Interval history since last seen: Pain is improved. CT today without significant findings. Potassium elevated, switch PCN G to oxicillian for hyperkalemia. Monitor labs in am. Consider transition to SB status tomorrow. Exam Narrative Exam Narrative: Const: Sitting up in bed, NAD Eyes: PERRLA, EOMI Neck: no lymphedema, goiter or carotid upstroke Chest: symmetrical, atraumatic Resp: Even unlabored. Able to complete sentences without difficulty Cardio: RRR no murmurs appreciated GI: Abd soft nontender, b.s. x 4 Skin: erthyema with firm thigh to LLE improving. Erythema receding. Calf size 45 mm, down from 46. PPP with strong pulse. skin leathery, dry with areas of sloughing and regeneration. Swelling trace to ankle. Objective Objective Clinical Data: Abnormal lab results 04/23/19 04/23/1920 Range/Units 07:25 07:25 07:25 WBC 3.82 L (4.4-10.8) k/cumm RBC 3.53 L (4.50-6.00) m/cumm Hgb 11.3 L (13.5-17.5) g/dL Hct 34.1 L (40.0-50.0) % MCV 96.6 H (80-95) fL Plt Count 570 H (130-400) x1000/uL Absolute Lymphocytes 0.98 L (1.2-3.4) k/cumm Potassium 5.2 H (3.5-5.1) mmol/L C-Reactive Protein 5.08 H (0.0-0.3) mg/dL Vital Signs Temperature 37 C 04/23/19 07:50 Temperature Source Tympanic 04/23/19 07:50 Pulse 80 04/23/19 07:50 Pulse Rhythm Regular 04/23/19 09:00 Pulse 84 04/14/19 11:30 Respiratory Rate 16 04/23/19 07:50 Respiratory Effort Non-Labored 04/23/19 09:00 Respiratory Depth Normal 04/23/19 09:00 Respiratory Pattern Normal 04/23/19 09:00 Blood Pressure 105/71 04/23/19 07:50 Blood Pressure Mean 76 04/14/19 11:30 Blood Pressure Position Sitting 04/14/19 06:58 Pulse Oximetry 97 04/23/19 07:50 Oxygen Delivery Method Room Air 04/23/19 07:50 Oxygen Flow Rate 0 04/23/19 07:50 Pain Level 6 04/23/19 13:30 Comment 04/19/19 16:10 Intake & Output 04/22/19 04/23/19 04/23/19 23:59 11:59 23:59 Intake Total 970 / 1590 200 / 200 Output Total 700 / 700 Balance 970 / 1590 -500 / -500 Intake: IV 250 / 500 200 / 200 Oral 720 / 1090 Output: Urine 700 / 700 Other: Urine Color Yellow Yellow Urine Appearance Clear Clear Urine Odor None Voiding Methods Toilet Toilet Laboratory Results WBC 3.82 k/cumm (4.4-10.8) L 04/23/19 07:25 RBC 3.53 m/cumm (4.50-6.00) L 04/23/19 07:25 Hgb 11.3 g/dL (13.5-17.5) L 04/23/19 07:25 Hct 34.1 % (40.0-50.0) L 04/23/19 07:25 MCV 96.6 fL (80-95) H 04/23/19 07:25 MCH 32.0 pg (27.0-33.0) 04/23/19 07:25 MCHC 33.1 g/dL (32.0-36.0) 04/23/19 07:25 RDW 13.0 % (11.8-14.1) 04/23/19 07:25 Plt Count 570 x1000/uL (130-400) H 04/23/19 07:25 MPV 9.0 fL (8.0-11.0) 04/23/19 07:25 Immature Gran % 0.8 % 04/23/19 07:25 Neutrophils % 54.4 04/23/19 07:25 Band Neutrophils % Cancelled 04/21/19 08:48 Lymphocytes % 25.7 04/23/19 07:25 Atypical Lymphs % Cancelled 04/21/19 08:48 Monocytes % 9.7 04/23/19 07:25 Eosinophils % 7.6 04/23/19 07:25 Basophils % 1.8 04/23/19 07:25 Metamyelocytes % Cancelled 04/21/19 08:48 Myelocytes % Cancelled 04/21/19 08:48 Promyelocytes % Cancelled 04/21/19 08:48 Absolute Neutrophils 2.08 k/cumm (1.2-6.7) 04/23/19 07:25 Absolute Lymphocytes 0.98 k/cumm (1.2-3.4) L 04/23/19 07:25 Absolute Monocytes 0.37 k/cumm (0.11-0.7) 04/23/19 07:25 Absolute Eosinophils 0.29 k/cumm (0.0-0.7) 04/23/19 07:25 Absolute Basophils 0.07 k/cumm (0.0-0.2) 04/23/19 07:25 Nucleated RBCs Cancelled 04/21/19 08:48 Differential Comment Cancelled 04/21/19 08:48 Other Cell Type Cancelled 04/21/19 08:48 RBC Morphology Cancelled 04/21/19 08:48 Polychromasia Cancelled 04/21/19 08:48 Hypochromasia Cancelled 04/21/19 08:48 Poikilocytosis Cancelled 04/21/19 08:48 Basophilic Stippling Cancelled 04/21/19 08:48 Anisocytosis Cancelled 04/21/19 08:48 Microcytosis Cancelled 04/21/19 08:48 Macrocytosis Cancelled 04/21/19 08:48 Spherocytes Cancelled 04/21/19 08:48 Target Cells Cancelled 04/21/19 08:48 Tear Drop Cells Cancelled 04/21/19 08:48 Ovalocytes Cancelled 04/21/19 08:48 Stomatocytes Cancelled 04/21/19 08:48 [place] Bodies Cancelled 04/21/19 08:48 Manny Cells Cancelled 04/21/19 08:48 Acanthocytes (Spur) Cancelled 04/21/19 08:48 Schistocytes Cancelled 04/21/19 08:48 ESR 117 mm/hr (0-15) H 04/20/19 05:35 Sodium 140 mmol/L (136-145) 04/23/19 07:25 Potassium 5.2 mmol/L (3.5-5.1) H 04/23/19 07:25 Chloride 103 mmol/L (98-107) 04/23/19 07:25 Carbon Dioxide 30.1 mmol/L (21.0-32.0) 04/23/19 07:25 Anion Gap 6.9 mmol/L (3-11) 04/23/19 07:25 BUN 18 mg/dL (7-18) 04/23/19 07:25 Creatinine 0.88 mg/dL (0.70-1.30) 04/23/19 07:25 Estimated GFR/1.73 m2 >= 60.00 (mL/min/1.73m2) 04/23/19 07:25 Glucose 89 mg/dL (74-106) 04/23/19 07:25 Lactate 0.6 mmol/L (0.6-1.4) 04/15/19 11:55 Calcium 8.9 mg/dL (8.5-10.1) 04/23/19 07:25 Magnesium 2.2 mg/dL (1.8-2.4) 04/22/19 08:00 Total Bilirubin 0.5 mg/dL (0.2-1.0) 04/14/19 07:10 AST 32 U/L (15-37) 04/14/19 07:10 ALT 38 U/L (16-63) 04/14/19 07:10 Alkaline Phosphatase 80 U/L (46-116) 04/14/19 07:10 Creatine Kinase 107 U/L (39-308) 04/15/19 11:55 C-Reactive Protein 5.08 mg/dL (0.0-0.3) H 04/23/19 07:25 Total Protein 7.4 g/dL (6.4-8.2) 04/14/19 07:10 Albumin 3.0 g/dL (3.4-5.0) L 04/14/19 07:10 Procalcitonin 2.2 ng/mL 04/16/19 07:55 Vancomycin Trough 21.7 ug/mL (10.0-20.0) H* 04/19/19 17:25
[2019-04-23 14:23] LABS: Potassium 4.8 mmol/L (3.5-5.1)
[2019-04-23 15:12] VITALS: BP 107/74; PULSE 84; RESP 16; TEMP 35.7; O2SAT 97
--- NOTE | 2019-04-23 19:58 | PDOC.CMPRO ---
- If Service Date Differs Date of service: 04/23/19 Time of Service: 19:58 Care Management Progress Note S/O: Enzo was sitting up in bed when CM met with him. Per provider, Enzo may need to have a short swing bed stay at [facility] for IV abx treatment which will be either Q4H or Q6H. Enzo reported that his provider explained this all to him. He stated that he is anxious to not be a patient and to move on soon. CM will support his new housing needs in [place], which is where he lived prior to being held at the [facility] corrections. CM will continue to follow. A: Enzo is a 48 year old man admitted on 04/14/19 with severe cellulitis of his LLE. P: Enzo will likely be released into the community at the time of discharge. He is working with corrections staff to secure financial support, food and needed services. CM is also supporting Enzo with finding some clothing, obtaining a PCP and investigating housing options. If Enzo requires extensive antibiotic therapy, he may remain hospitalized beyond his release date; to be determined. CM will continue to support Enzo and discharge planning considerations.
[2019-04-23] MEDS: Normal Saline 500 ML 30 ML IVPB (22:09)
[2019-04-23 23:06] VITALS: BP 100/67; PULSE 71; RESP 18; TEMP 36.4; O2SAT 98
[2019-04-24] MEDS: Normal Saline Flush 10 ML SYR IVP ×3 (02:50→07:51)
[2019-04-24] MEDS: CLINDAMYCIN 900 MG/50 ML BAG 50 MG IVPB ×2 (02:50→08:06)
[2019-04-24] MEDS: HYDROmorphone 2 MG/ML VIAL IVP (04:54)
[2019-04-24] MEDS: oxyCODONE 5 MG TAB 10 MG PO ×2 (04:54→10:23)
[2019-04-24] MEDS: Ibuprofen 600 MG TAB PO ×2 (04:54→11:23)
[2019-04-24 06:51] LABS: Abs Immature Grans 0.02 k/cumm (0.0-0.09); Absolute Basophil Count 0.07 k/cumm (0.0-0.2); Absolute Eosinophil Count 0.27 k/cumm (0.0-0.7); Absolute Lymphocyte Count 0.81 k/cumm (1.2-3.4); Absolute Monocyte Count 0.46 k/cumm (0.11-0.7); Basophils % 1.8; Eosinophils % 6.8; HCT 32.8 % (40.0-50.0); HGB 10.8 g/dL (13.5-17.5); Immature Grans % 0.5 %; Lymphocytes % 20.3; Mean Corp. HGB Concentration 32.9 g/dL (32.0-36.0); Mean Corpuscular Volume 97.3 fL (80-95); Monocytes % 11.5; Neutrophils % 59.1; Platelet Count 561 x1000/uL (130-400); RBC 3.37 m/cumm (4.50-6.00); RBC Distribution Width 12.9 % (11.8-14.1)
[2019-04-24 06:56] LABS: Absolute Neutrophil Count 2.36 k/cumm (1.2-6.7)
[2019-04-24 06:58] LABS: Anion Gap 6.9 mmol/L (3-11); BUN 19 mg/dL (7-18); CO2 30.1 mmol/L (21.0-32.0); CREATININE 1.08 mg/dL (0.70-1.30); Calcium 8.7 mg/dL (8.5-10.1); Chloride 103 mmol/L (98-107); Glucose 87 mg/dL (74-106); Magnesium 2.2 mg/dL (1.8-2.4); Potassium 4.5 mmol/L (3.5-5.1); Sodium 140 mmol/L (136-145)
[2019-04-24 07:54] VITALS: BP 110/71; PULSE 67; RESP 17; TEMP 36.5; O2SAT 97
[2019-04-24] MEDS: Clotrimazole 1% 15 GM TUBE TP (08:06)
[2019-04-24] MEDS: Lactobacillus Acidophilus CAP 1 CAP PO (08:06)
[2019-04-24] MEDS: Heparin 500 UNITS/5 ML SYRINGE IVP (08:06)
[2019-04-24] MEDS: Docusate Sodium 100 MG CAP PO (08:06)
[2019-04-24] MEDS: Acetaminophen 500 MG TAB 1000 MG PO (10:23)
--- NOTE | 2019-04-24 11:13 | W.PM.DS.N ---
Date of service: 04/24/19 Time of Service: 11:13 DS: Diagnosis Discharge Diagnosis (1) Cellulitis of left leg: Start date: 04/24/19 Start time: 11:14 Status: Acute Asessment and Plan: Improving on oxicillin and clindamycin q 6 hours. Day 5 clindamycin and day 2 for oxicillin. On admission on vanco and zosyn with little relief. Blisters broken. LLE with erythema improved, edema to ankle +2 only. PPPx 2. Pain improving, weaning off IV dilaudid and PO medication. CRP trending down. Will continue to monitor. Transitioning to SB status. (2) Opioid abuse: Start date: 04/24/19 Start time: 11:25 Status: Acute Asessment and Plan: Continue suboxone. Try to wean off pain medications as leg improves. (3) Tobacco abuse: Start date: 04/24/19 Start time: 11:25 Status: Acute Asessment and Plan: Nicotine replacement with nicotrol and patch. Discharge Plan Disposition Patient Disposition: [facility] SWING BED LEVEL 1 Condition: Improving Discharge Details Chief Complaint: Cellulitis Reason For Visit: CELLULITIS Admit Date/Time: 04/14/19 10:38 Admit Provider: Debbi Bhardwaj Attending Provider: Debbi Bhardwaj Primary Care Provider: None,None ED Provider: Rolando Parks [facility] Course Hospital Course: 48 y.o male admitted from [facility] ED for cellulitis after failling outpatient treatment. Patient was initially started on vanco and zosyn after 5 days CRP was not decreasing and leg did not appear to be improving. PCN G and clindamycin were implemented with zosyn and vanco dcd. CRP started trending down nicely, however potassium increased to 5.2 PCN dcd due to potassium level and oxicillin was started. There was concern for possible DVT or abscess to left thigh due to erythema and firmness, U/S negative for DVT and CT negative for abscess, free air gas, increased edema. Today the thigh is improved, not as firm and erythema improved from yesterday. Hyperkalemia resolved. He has received wound care to the LLE. Skin is regenerating. Blisters gone, edema improved. He has started ambulating on his leg. Pain is managed he is being weaned off IV dilaudid and placed on PO management. At this time he denies CP, SOB, N/V/D. He is being transitioned to Swing bed 1 status for a course of IV antibiotics. Home Meds and New Rx's Prescriptions: No Action sulfamethoxazole-trimethoprim 800-160 mg Tablet 1 tab PO BID RF: 0 ibuprofen 200 mg Tablet 600 mg PO BID PRNRF: 0 buprenorphine HCl 8 mg Tablet, Sublingual 16 mg SUBLINGUAL DAILY RF: 0 Vyvanse 70 mg Capsule 70 mg PO DAILY RF: 0 cephalexin 500 mg tablet 500 mg PO BID 10 Days Qty: 20 RF: 0 Discharge Instructions Additional Instructions: Tranisition to Swing Activity:: Activity as Tolerated Equipment/Supplies:: No Equipment Needed Diet:: As Tolerated Discharge Orders Discharge Orders: Discharge Order (Routine); Ordered 04/24/19 Ordered By: Nafisa Ji DS: Summary Status at Discharge Functional status at discharge: independent ambulation Overall status at discharge: patient is progressing back to baseline Mental Status: mental status grossly normal Speech and Movement: speech and movement normal Mood: congruent mood Affect: normal affect Exam Narrative Exam Narrative: Const: Sitting up in bed, NAD Eyes: PERRLA, EOMI Neck: no lymphedema, goiter or carotid upstroke Chest: symmetrical, atraumatic Resp: Even unlabored. Able to complete sentences without difficulty Cardio: RRR no murmurs appreciated GI: Abd soft nontender, b.s. x 4 Skin: erthyema with firm thigh to LLE improving. Erythema receding. Calf size 45 mm, down from 46. PPP with strong pulse. skin leathery, dry with areas of sloughing and regeneration. Swelling trace to ankle. Psych Mental Status: mental status grossly normal Speech and Movement: speech and movement normal Mood: congruent mood Affect: normal affect DS: Data Vitals/I&O Vitals and I&O: Vital Signs Temperature 36.5 C 04/24/19 07:54 Temperature Source Tympanic 04/24/19 07:54 Pulse 67 04/24/19 07:54 Pulse Rhythm Regular 04/24/19 09:27 Pulse 84 04/14/19 11:30 Respiratory Rate 17 04/24/19 07:54 Respiratory Effort Non-Labored 04/24/19 09:27 Respiratory Depth Normal 04/24/19 09:27 Respiratory Pattern Normal 04/24/19 09:27 Blood Pressure 110/71 04/24/19 07:54 Blood Pressure Mean 76 04/14/19 11:30 Blood Pressure Position Sitting 04/14/19 06:58 Pulse Oximetry 97 04/24/19 07:54 Oxygen Delivery Method Room Air 04/24/19 07:54 Oxygen Flow Rate 0 04/24/19 07:54 Pain Level 6 04/24/19 10:23 Comment 04/19/19 16:10 Intake & Output 04/23/19 04/23/19 04/24/19 11:59 23:59 11:59 Intake Total 810 / 2067.5 1257.5 / 2067.5 417.5 / 417.5 Output Total 700 / 900 200 / 900 600 / 600 Balance 110 / 1167.5 1057.5 / 1167.5 -182.5 / -182.5 Intake: IV 200 / 477.5 277.5 / 477.5 117.5 / 117.5 Oral 610 / 1590 980 / 1590 300 / 300 Output: Urine 700 / 900 200 / 900 600 / 600 Other: Urine Color Yellow Yellow Yellow Urine Appearance Clear Clear Clear Urine Odor None Voiding Methods Toilet Urinal Toilet Data Completed and Pending Completed studies during hospitalization [Text1]: Exam(s) a US:US lower extremity venous LT EXAM: US LOWER EXTREMITY VENOUS LT CLINICAL HISTORY: Redness, swelling, h/o PE. TECHNIQUE: Left lower extremity venous ultrasound performed using grayscale, color-flow, and spectral Doppler analysis. COMPARISON: No exams were available for comparison FINDINGS: The left common femoral, femoral and popliteal veins demonstrate normal compressibility, augmentation, and color Doppler. The posterior tibial vein is patent. The saphenofemoral junction is unremarkable. There is a 2.8 x 0.9 x 2.4 cm Alva's cyst. Sonographically unremarkable lymph nodes are seen in the left inguinal region. The largest measures 2.3 x 0.6 x 2.8 cm. IMPRESSION: No DVT. Exam(s) a CT:CT lower extremity LT w EXAM: CT LOWER EXTREMITY LT W CLINICAL HISTORY: erythema, cellulitis TECHNIQUE: Post IV contrast from the hip through the knee. COMPARISON: CT LOWER EXTREMITY LT W from 04/14/2019 FINDINGS: No fracture or bony erosions are seen. There is increased edema seen in the subcutaneous fat of the thigh, greatest laterally. No drainable abscess or fluid collection is seen. There is no evidence of air in the soft tissues. The vessels appear patent. A small joint effusion is seen. There are degenerative changes of the patellofemoral joint. IMPRESSION: Interval worsening edema in the subcutaneous fat. No drainable abscess or fluid collection. a CT:CT lower extremity LT w EXAM: CT LOWER EXTREMITY LT W CLINICAL HISTORY: severe cellulitis/swelling TECHNIQUE: Images were performed from the aortic bifurcation through the toes following the administration of 100 cc of Omnipaque 350. COMPARISON: No exams were available for comparison FINDINGS: There is extensive edema in the subcutaneous fat extending from the level of the knee through the toes. The edema is greatest around the knee and ankle. There is no drainable collection or evidence of soft tissue gas formation. The muscles appear normal. There are no bony erosions. There are mildly enlarged groin lymph nodes, the largest measuring 2 cm. The arteries and veins show normal diameter. Bladder and prostate are unremarkable. There is no fluid seen in the pelvis. The appendix appears normal. IMPRESSION: Findings consistent with severe cellulitis with reactive left groin lymph nodes. There is no evidence pf necrotizing fasciitis or drainable collection. Exam(s) PROCEDURE INFORMATION: Exam: CT Left Lower Extremity With Contrast; Thigh Exam date and time: 04/23/2019 8:42 AM Age: 48 years old Clinical indication: Cellulitis and other: Erythema; Thigh; Left TECHNIQUE: Imaging protocol: CT of the Left lower extremity with intravenous contrast was performed. Exam focused on the thigh. Contrast material: OMNIPAQUE 350; Contrast volume: 100 ml; Contrast route: IV RAC; COMPARISON: CT LOWER EXTREMITY LT W 04/14/2019 9:02 AM FINDINGS: Bones/joints: The hip and knee joints are normally aligned. There again appears to be a very small knee joint effusion. No acute fracture is identified. There is no osseous erosion or cortical destruction. Soft tissues: There is progressive subcutaneous edema, more circumferential about the thigh and now extending more proximally into the proximal thigh and buttock laterally. No discrete collection to suggest abscess is identified, nor is any abnormal soft tissue gas. Other findings: The visualized intrapelvic structures appear unremarkable. IMPRESSION: 1. Progressive subcutaneous edema as compared with 04/14/19, more circumferential about the thigh and now extending more proximally into the proximal thigh and buttock laterally. 2. No discrete abscess, abnormal soft tissue gas or CT evidence for osteomyelitis. 3. Persistent apparent very small knee joint effusion. Labs on day of discharge: Labs from last 24 hours 04/24/19 04/24/19 04/23/19 06:20 06:20 14:00 WBC 4.00 L RBC 3.37 L Hgb 10.8 L Hct 32.8 L MCV 97.3 H MCH 32.0 MCHC 32.9 RDW 12.9 Plt Count 561 H MPV 9.0 Immature Gran % 0.5 Neutrophils % 59.1 Lymphocytes % 20.3 Monocytes % 11.5 Eosinophils % 6.8 Basophils % 1.8 Absolute Neutrophils 2.36 Absolute Lymphocytes 0.81 L Absolute Monocytes 0.46 Absolute Eosinophils 0.27 Absolute Basophils 0.07 Sodium 140 Potassium 4.5 4.8 Chloride 103 Carbon Dioxide 30.1 Anion Gap 6.9 BUN 19 H Creatinine 1.08 Estimated GFR/1.73 m2 >= 60.00 Glucose 87 Calcium 8.7 Magnesium 2.2 PFSH Medical History No active medical problems (Acute) Surgical History History of incision and drainage (Inactive) Left sternal-clavicular septic joint Social History Smoking/Tobacco Use Status: Former Tobacco Use Alcohol Intake: former Drug use: Current Sobriety Substance use type: former substance user
--- NOTE | 2019-04-24 11:53 | NUR.NOTE ---
pt being discharged from acute to swingbedNursing Note:
--- NOTE | 2019-04-24 15:34 | PDOC.CMPRO ---
- If Service Date Differs Date of service: 04/24/19 Time of Service: 15:34 Care Management Progress Note S/O :Enzo will be transferred to SB1 status today. He continues to need IV antibiotics to treat an extensive LLE cellulitis. Referrals have been sent by CM to [facility] and [facility]. A: Enzo is a 48 year old man admitted on 04/14/19 with severe cellulitis of his LLE. P: Enzo will likely be released into the community at the time of discharge. He worked with corrections staff to secure financial support, food and needed services. Today is his official release date.CM is also supporting Enzo with finding some clothing, obtaining a PCP and investigating housing options. Enzo requires extensive antibiotic therapy and will need to transition to SB1 status until completion. CM will continue to support Enzo and discharge planning considerations.
== END 2019-04-24 12:40 | disposition swing bed (61) | DRG 603 ==
LOC: ER 11:29 → MS 11:58
PROVIDERS: Emergency Medicine; Nurse Practitioner Acute Care; Nurse Practitioner Family; Admitting Provider Internal Medicine; Emergency Provider Student in an Organized Health Care Education/Training Program; Visit Provider Internal Medicine
DX: L03.116 Cellulitis of left lower limb (principal); F11.20 Opioid dependence, uncomplicated; F17.210 Nicotine dependence, cigarettes, uncomplicated; E87.5 Hyperkalemia; T36.0X5A Adverse effect of penicillins, initial encounter
CPT/HCPCS: 36415; 36569; 80048; 80053; 82550; 84145; 85652; 87040; 87081; 99222; 99226; 99233; 99239; J1650; 73701; 80202; 82565; 83605; 83735; 84132; 85025; 86140; 87070; 87205; 93971; J1885; J2540; J2543; J2700; J3370; J3490

== ENCOUNTER 2019-04-24 11:49 | Inpatient (IN) | payer MEDICAID, SELFPAY ==
--- NOTE | 2019-04-24 11:51 | W.PM.HP.N ---
Date of service: 04/24/19 Time of Service: 11:52 Assessment and Plan Assessment and plan (1) Cellulitis of left leg: Start date: 04/24/19 Start time: 12:01 Status: Acute Assessment and plan: Improving. Requiring IV antibiotics. Trend CRP weekly. NO DVT or abscess. Continue clinidamycin and oxicillin will monitor wound and CRP for healing and follow pateint. (2) Opioid abuse: Start date: 04/24/19 Start time: 12:02 Status: Acute Assessment and plan: Continue suboxone. Wean pain medication as wound heals and leg improves. (3) Tobacco abuse: Start date: 04/24/19 Start time: 12:03 Status: Acute Assessment and plan: Use nicotrol inhaler and patch as needed. Continue discussion on smoking cessation. History of Present Illness History of Present Illness Chief Complaint: Cellulitis Narrative: 48 y.o male admitted from [facility] ed after failing outpatient therapy for cellulitis on. Patient was initially started on vanco and zosyn after 5 days CRP was not decreasing and leg did not appear to be improving. PCN G and clindamycin were implemented with zosyn and vanco dcd. CRP started trending down nicely, however potassium increased to 5.2 PCN dcd due to potassium level and oxicillin was started. There was concern for possible DVT or abscess to left thigh due to erythema and firmness, U/S negative for DVT and CT negative for abscess, free air gas, increased edema. Today the thigh is improved, not as firm and erythema improved from yesterday. CRP is improved to 5. Hyperkalemia resolved. He has received wound care to the [facility]. Skin is regenerating. Blisters gone, edema improved. He has started ambulating on his leg. Pain is managed he is being weaned off IV dilaudid and placed on PO management. At this time he denies CP, SOB, N/V/D. He is being transitioned to Swing bed 1 status for a course of IV antibiotics. Review of Systems All systems reviewed & are unremarkable except as noted in HPI and below PFSH Social History Smoking/Tobacco Use Status: Former Tobacco Use Alcohol Intake: former Drug use: Current Sobriety Substance use type: former substance user Meds Home Medications and Allergies Home Medications Medication Instructions Recorded Confirmed Type Vyvanse 70 mg PO DAILY 04/11/19 04/14/19 History buprenorphine HCl 16 mg SUBLINGUAL DAILY 04/11/19 04/14/19 History cephalexin 500 mg PO BID 10 Days #20 tab 04/11/19 04/14/19 Rx ibuprofen 600 mg PO BID PRN 04/14/19 04/14/19 History sulfamethoxazole-trimethoprim 1 tab PO BID 04/14/19 04/14/19 History Allergies Allergy/AdvReac Type Severity Reaction Status Date / Time No Known Allergies Allergy Unverified 04/14/19 07:09 Exam Const General: cooperative, healthy appearing and no acute distress Nutritional Appearance: average body habitus Orientation: alert, awake and oriented x3 HENMT Head: normal to inspection Ears: hearing grossly normal bilaterally Eyes Sclera: sclerae normal Cornea: corneas normal Pupils: PERRL EOM: EOM intact bilaterally Neck Neck: no JVD Carotids: normal carotid upstroke Lymphatic: no lymphadenopathy noted and no lymphedema noted Chest Chest: normal inspection of the chest Resp Effort & Inspection: normal respiratory effort Auscultation: clear to auscultation bilaterally Cardio Jugular venous pressure: no JVD Rate: regular rate Rhythm: regular rhythm Heart Sounds: S1 normal and S2 normal GI Inspection: normal to inspection Palpation: soft and no hepatosplenomegaly Auscultation: normal bowel sounds Back/Spine/Pelvis Back: no CVA tenderness Skin General skin exam: no rashes or lesions noted Wounds: wounds noted (wounds to LLE with erythema, skin sloughing, healing areas, scant amount dr) Neuro General: alert, awake and oriented x3 Extrem General: normal to inspection, full ROM and no calf tenderness Psych Mood: congruent mood Affect: normal affect
[2019-04-24] MEDS: Lactobacillus Acidophilus CAP 1 CAP PO ×2 (13:14→20:38)
[2019-04-24] MEDS: Enoxaparin 40 MG/0.4 ML SYR SC (13:15)
[2019-04-24] MEDS: HYDROmorphone 2 MG TAB PO ×2 (13:15→20:38)
--- NOTE | 2019-04-24 13:47 | NUR.NOTE ---
pt admitted from acute to swingbed. see account [id number] from todays assessments, dressing changes, and prior meds given on acute account. Nursing Note:
--- NOTE | 2019-04-24 15:45 | CMSA_ITS ---
- If Service Date Differs Date of service: 04/24/19 Time of Service: 15:46 SB Psychosocial/Act.Assessment - Hospital Admission Admission Date: 04/14/19 Admission From:: ED - Swing Bed Admission Swing Bed Admit Date:: 04/24/19 Swing Bed Level of Care: Level 1/SNF - Social Supports PREVIOUS FUNCTIONAL STATUS/SOCIAL/FAMILY SUPPORTS:: Enzo was recently incarcerated at the [facility]. He had been there since October and was released today. Prior to incarceration, Enzo lived in [place] with his girlfriend and 2 young children ages 2 and 4. He also has 3 adult children but is not in close contact with them. Enzo states he plans to return to [place] but not to his prior living arrrangement. 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 uses glasses for reading - Medical History PAST MEDICAL HISTORY/PAST SURGICAL HISTORY:: Medical History (Updated 04/14/19 @ 16:22 by Amanda Alexander NP). No active medical problems (Acute). Surgical History (Updated 04/14/19 @ 07:32 by Malvin Brown MD). History of incision and drainage (Inactive). Left sternal-clavicular septic joint General Health:: good - Admission Data Reason for Swing Bed Admission:: IV antibiotics Discharge Plan:: Discharge back to the community, hopefully with housing established Assessment: Enzo is a pleasant 48 year old man admitted to [facility] from a 10 day acute IP stay for cellulitis. He will continue to receive IV antibiotics until treatment complete. Executive Vice President And Chief Operating Officer: Davina Whiteehad Date Assessment was completed:: 04/24/19
--- NOTE | 2019-04-24 15:48 | CMSCP_ITS ---
- If Service Date Differs Date of service: 04/24/19 Time of Service: 15:48 Swingbed Plan of Care Plan of care: SWING BED PROGRAM ACTIVITIES/DISCHARGE PLAN OF CARE ACTIVITIES PLAN Date: 04/24/2019 Identified Need: Individualized activity plan Intervention/Plan: Enzo will be offered coloring materials from the activity cart as well as reiki, music and pet therapy when available. He will also be offered books and other reading materials. Initials [facility] DISCHARGE PLAN Date: 04/24/2019 Identified Need: Safe discharge back to the community Intervention/Plan: Enzo will complete a course of IV antibiotics to treat his LLE cellulitis. CM will assist Enzo to establish with a PCP in his home town [facility] and also coordinate obtaining community services. Initials: [facility]
[2019-04-24] MEDS: oxyCODONE 5 MG TAB 10 MG PO (16:04)
[2019-04-24] MEDS: Acetaminophen 500 MG TAB 1000 MG PO (16:05)
[2019-04-24 16:29] VITALS: BP 112/72; PULSE 75; RESP 19; TEMP 36.8; O2SAT 98
[2019-04-24] MEDS: CLINDAMYCIN 900 MG/50 ML BAG 50 MG IVPB ×2 (16:35→23:24)
[2019-04-24] MEDS: Docusate Sodium 100 MG CAP PO (20:39)
[2019-04-24] MEDS: Ibuprofen 600 MG TAB PO (20:39)
[2019-04-24] MEDS: Heparin 500 UNITS/5 ML SYRINGE IVP (20:40)
[2019-04-24] MEDS: Clotrimazole 1% 15 GM TUBE TP (20:40)
[2019-04-25 00:29] VITALS: BP 110/66; PULSE 74; RESP 17; TEMP 37; O2SAT 96
[2019-04-25] MEDS: Ibuprofen 600 MG TAB PO ×4 (03:49→20:28)
[2019-04-25] MEDS: CLINDAMYCIN 900 MG/50 ML BAG 50 MG IVPB ×4 (03:49→22:17)
[2019-04-25] MEDS: oxyCODONE 5 MG TAB 10 MG PO ×4 (03:55→20:33)
[2019-04-25 07:29] VITALS: BP 109/69; PULSE 61; RESP 16; TEMP 36.9; O2SAT 96
[2019-04-25] MEDS: HYDROmorphone 2 MG TAB PO (07:56)
[2019-04-25] MEDS: Docusate Sodium 100 MG CAP PO ×2 (07:59→20:28)
[2019-04-25] MEDS: Lactobacillus Acidophilus CAP 1 CAP PO ×3 (07:59→20:28)
[2019-04-25] MEDS: Acetaminophen 500 MG TAB 1000 MG PO ×2 (09:30→16:09)
[2019-04-25] MEDS: Bacitracin 1 PACKET (09:31)
--- NOTE | 2019-04-25 10:43 | IN_ITS ---
Date of service: 04/25/19 PT Notes Visit Reasons: Cellulitis Physical Therapy Inpatient Initial Evaluation Date: 04/25/2019 Referring Doctor: Nafisa Ji N.P. PT Orders: PT CONSULT: Limited Ability? Precautions: Fall. Standard. Activity as tolerated. Patient Profile/Admitting Diagnosis: Pt is a 48-year-old male that presented to the ER on 04/14/2019 with worsening infection of his left lower extremity. He was admitted to the hospital and transitioned to swing bed level one with diagnoses of cellulitis of the left lower extremity, opioid abuse, and tobacco abuse. PMHX: Medical History (Updated 04/14/19 @ 16:22 by Amanda Alexander NP) No active medical problems (Acute) Surgical History (Updated 04/14/19 @ 07:32 by Mlavin Brown MD) History of incision and drainage (Inactive) Left sternal-clavicular septic joint Social History/Home Situation: Per medical records, the pt was recently released from [facility] on 04/24/2019. He plan to return to [place], [place] but is not sure where he will be living yet. Equipment Owned/DME: none Subjective: Pt reports that he is experiencing some pain in his lower extremity from the swelling and infection. He states that he has had an infection before in his spine and neck which he had surgery for but is not sure where the infection comes from. He states he has been walking in the hospital halls alone. When he first came to the hospital, he felt a little unstable due to pain, but no longer feels that way. Objective: General Observation: PICC line in R UE. Mental Status: alert and oriented x4 Pain: 4/10 in L LE ROM: Right Upper Extremity: Shoulder Flexion WFL. Shoulder abduction WFL. Elbow flexion WFL. Wrist flexion WFL. Opening and closing of hand WFL. Left Upper Extremity: Shoulder Flexion WFL. Shoulder abduction WFL. Elbow flexion WFL. Wrist flexion WFL. Opening and closing of hand WFL. Right Lower Extremity: Hip flexion WFL. Hip abduction WFL. Knee flexion WFL. Ankle dorsiflexion WFL. Ankle plantarflexion WFL. Left Lower Extremity: Hip flexion WFL. Hip abduction WFL. Knee flexion WFL. Ankle dorsiflexion WFL. Ankle plantarflexion WFL. Strength: Right Upper Extremity: Shoulder flexors 5/5. Shoulder abductors 5/5. Elbow flexors 5/5. Elbow extensors 5/5. Automatic Glove Turner And Former strong. Left Upper Extremity: Shoulder flexors 5/5. Shoulder abductors 5/5. Elbow flexors 5/5. Elbow extensors 5/5. Automatic Glove Turner And Former strong. Right Lower Extremity: Hip flexors 5/5. Hip abductors 5/5. Knee flexors 5/5. Knee extensors 5/5. Ankle dorsiflexors 5/5. Ankle plantarflexors 5/5. Left Lower Extremity: Hip flexors 4+/5. Hip abductors 5/5. Knee flexors 5/5. Knee extensors 5/5. Ankle dorsiflexors 3-/5. Ankle plantarflexors 4/5. Sensation: Intact as to pain and pressure on bilateral lower extremities. Bed Mobility/Transfers: Rolling independent Supine to sit independent Sit to supine independent Sit to stand independent Stand to sit independent Bed to chair independent Chair to bed independent Gait: Pt was able to ambulate 260 feet, full weightbearing, without the use of an assistive device. Supervision provided by PT and PT student. Decreased stance time on the left LE due to pain from cellulitis. Reciprocal gait pattern. No complaints of increased pain. Balance: Static Sitting: Normal Dynamic Sitting: Normal Static Standing: Good Dynamic Standing: Good Special Tests: Mobility Limitations Standardized Measure [facility] 6 clicks Basic Mobility Inpatient Short Form: Raw Score: 24 CMS Score: 0% deficit Informed Consent/Education: Patient instructed in purpose of PT consult and plan of care. Assessment: Pt is a 48-year-old male that presented to the ER on 04/14/2019 with worsening infection of his left lower extremity. He was admitted to the hospital and transitioned to swing bed level one with diagnoses of cellulitis of the left lower extremity, opioid abuse, and tobacco abuse. Pt presents with impairment level findings and functional limitations as listed below. He presents with mild gait impairments due to pain in his left lower extremity, however, does not appear to be unstable when ambulating without an assistive device. He demonstrates independence with bed mobility and transfers. Pt does not require skilled physical therapy at this time. Patient presents with clinical signs and symptoms consistent with current/admitting diagnoses that have resulted to gait instability demonstrated by the following impairment level findings: 1. Decreased strength to left hip flexors and left ankle dorsiflexors major muscle groups 2. Impaired standing balance due to pain 3. Impaired activity tolerance dues to pain Impairments are contributing to the following functional limitations: 1. Increased completion time for mobility Patient is assessed as a 18218 low complexity based on the following: History: Pt presents with impairment level findings and functional limitations as listed above, however, does not require skilled physical therapy at this time. Examination: Demonstrable impairment in strength, balance, and range of motion with underlying impairments and functional limitations as documented above Presentation: Stable Decision Makin low complexity Goals: N/A. Physical therapy evaluation only. DISCHARGE RECOMMENDATIONS: Discharge to home when medically cleared. He does not require skilled physical therapy at this time. No equipment recommendations at this time. TREATMENT CODE/TIME: 90177 x 10 minutes beginning at 10:43 A.M. Thank you very much for this referral. Klever Myles, SPT Doctor of Physical Therapy Student [facility] Supervision provided by Kenya Julio PT, DPT, CLT [facility] [place], [place]
[2019-04-25] MEDS: HYDROmorphone 2 MG/ML VIAL IVP ×2 (13:19→21:21)
[2019-04-25] MEDS: Normal Saline Flush 10 ML SYR IVP ×3 (13:20→21:21)
[2019-04-25] MEDS: Gabapentin 100 MG CAP PO ×2 (13:42→20:28)
[2019-04-25] MEDS: Enoxaparin 40 MG/0.4 ML SYR SC (13:42)
[2019-04-25] MEDS: Clotrimazole 1% 15 GM TUBE TP ×2 (13:43→20:29)
[2019-04-25 16:44] VITALS: BP 106/66; PULSE 74; RESP 16; TEMP 36; O2SAT 100
[2019-04-26] MEDS: oxyCODONE 5 MG TAB 10 MG PO ×4 (02:01→22:09)
[2019-04-26] MEDS: Ibuprofen 600 MG TAB PO ×4 (02:01→20:53)
[2019-04-26] MEDS: CLINDAMYCIN 900 MG/50 ML BAG 50 MG IVPB ×2 (03:41→09:53)
[2019-04-26 05:53] VITALS: BP 102/55; PULSE 69; RESP 18; TEMP 36.2
[2019-04-26 07:35] VITALS: BP 100/61; PULSE 71; RESP 16; TEMP 35.6; O2SAT 99
[2019-04-26] MEDS: Normal Saline Flush 10 ML SYR IVP ×2 (07:41→15:10)
[2019-04-26] MEDS: HYDROmorphone 2 MG/ML VIAL IVP ×3 (07:41→20:45)
[2019-04-26] MEDS: Docusate Sodium 100 MG CAP PO ×2 (07:42→20:46)
[2019-04-26] MEDS: Lactobacillus Acidophilus CAP 1 CAP PO ×3 (07:42→20:47)
[2019-04-26] MEDS: Gabapentin 100 MG CAP PO ×3 (07:44→20:47)
[2019-04-26] MEDS: Clotrimazole 1% 15 GM TUBE TP ×2 (08:44→20:48)
[2019-04-26] MEDS: Acetaminophen 500 MG TAB 1000 MG PO ×2 (09:24→15:09)
[2019-04-26] MEDS: Enoxaparin 40 MG/0.4 ML SYR SC (15:20)
[2019-04-26] MEDS: Clindamycin 150 MG CAP 450 MG PO ×2 (15:20→22:08)
[2019-04-26 16:03] VITALS: BP 113/71; PULSE 81; RESP 18; TEMP 36.4; O2SAT 98
--- NOTE | 2019-04-26 17:18 | W.PM.PROGNOT ---
Date of Service Date of service: 04/26/19 Time of Service: 17:18 Subjective Subjective Interval history since last seen: Transitioned to PO antibiotics. Will trial and dc if CRP continues to trend down, afebrile and no leukocytosis. Objective Objective Clinical Data: Abnormal lab results 04/26/19 Range/Units 06:33 C-Reactive Protein 1.90 H (0.0-0.3) mg/dL Vital Signs Temperature 36.4 C L 04/26/19 16:03 Temperature Source Tympanic 04/26/19 16:03 Pulse 81 04/26/19 16:03 Pulse Rhythm Regular 04/26/19 12:43 Respiratory Rate 18 04/26/19 16:03 Respiratory Effort 04/26/19 12:43 Respiratory Depth Normal 04/26/19 12:43 Respiratory Pattern Normal 04/26/19 12:43 Blood Pressure 113/71 04/26/19 16:03 Pulse Oximetry 98 04/26/19 16:03 Oxygen Delivery Method Room Air 04/26/19 16:03 Oxygen Flow Rate 0 04/26/19 16:03 Pain Level 5 04/26/19 10:24 Comment 04/25/19 07:29 Intake & Output 04/25/19 04/26/19 04/26/19 23:59 11:59 23:59 Intake Total 1460 / 2590 760 / 760 Balance 1460 / 2590 760 / 760 Intake: IV 250 / 450 200 / 200 Oral 1210 / 2140 560 / 560 Other: Urine Color Pale Yellow Urine Appearance Clear Clear Urine Odor None Voiding Methods Toilet Toilet Urinal Laboratory Results C-Reactive Protein 1.90 mg/dL (0.0-0.3) H 04/26/19 06:33
--- NOTE | 2019-04-26 17:29 | CMPROGNOTE_ITS ---
- If Service Date Differs Date of service: 04/26/19 Time of Service: 17:29 Care Management Progress Note S/O: Enzo continues to improve. His leg is looking much better and his pain is better controlled. Today Enzo's C-reactive protein was 1.9. On admission it was 18.88. This is further evidence that the cellulitis and infection in his leg is much improved. The plan is for Enzo to switch to PO antibiotics today and hopefully discharge in the next 24-48 hours. P:Enzo will be discharged back to the community. He has met with Faby from [facility] who is working on housing and additional clothing and other resources. Enzo has received clothing, and meal assistance as well as medicaid. He will stay with a friend in [place] until he can secure housing. Enzo has an appointment coordinated by [facility], with a new PCP in [place], Dr. Leonie Dominguez, on June 07, 2019 at 10:00 am.
[2019-04-26 20:27] VITALS: BP 100/56; PULSE 79; RESP 17; TEMP 36.4; O2SAT 98
[2019-04-26] MEDS: Normal Saline Flush 10 ML SYR 20 ML IVP (20:46)
[2019-04-26 23:20] VITALS: BP 98/68; PULSE 79; RESP 17; TEMP 36.9; O2SAT 98
[2019-04-27] MEDS: Clindamycin 150 MG CAP 450 MG PO ×4 (03:52→21:56)
[2019-04-27] MEDS: Ibuprofen 600 MG TAB PO ×4 (03:53→20:27)
[2019-04-27] MEDS: oxyCODONE 5 MG TAB 10 MG PO ×5 (03:56→21:56)
[2019-04-27] MEDS: Gabapentin 100 MG CAP PO ×3 (08:05→20:27)
[2019-04-27] MEDS: Lactobacillus Acidophilus CAP 1 CAP PO ×3 (08:05→20:27)
[2019-04-27] MEDS: Docusate Sodium 100 MG CAP PO ×2 (08:05→20:27)
[2019-04-27] MEDS: Normal Saline Flush 10 ML SYR 20 ML IVP ×2 (08:06→20:27)
[2019-04-27] MEDS: Clotrimazole 1% 15 GM TUBE TP (08:06)
[2019-04-27] MEDS: HYDROmorphone 2 MG/ML VIAL IVP ×3 (08:18→21:57)
[2019-04-27 08:35] VITALS: BP 111/69; PULSE 72; RESP 14; TEMP 36.7; O2SAT 100
--- NOTE | 2019-04-27 11:18 | W.NUTRFU ---
Date of service: 04/27/19 Time of Service: 11:18 Nutritional Follow up NOTE: Enzo continues on regular diet with 100% completion at most meals. receiving double protein at meals as refusing liquid protein supplement. Meeting 100% nutrient and fluid needs by mouth. Continues to have increased nutrient needs as with skin breakdown- cellulitis. Will conitnue to follow and make recommendations as warranted. No new nutritional recommendations at this time. Time Spent in Nutritional Counseling and Treatment: 0 time spent face to face
--- NOTE | 2019-04-27 11:45 | DI.US_ITS ---
EXAM: US SOFT TISSUE EXTREMITY CLINICAL HISTORY: fluctuant lesion, ? abscess. TECHNIQUE: Ultrasound was performed using standard protocol. COMPARISON: CT LOWER EXTREMITY LT W from 04/14/2019 CT LOWER EXTREMITY LT W from 04/23/2019 FINDINGS: Sonographic assessment utilizing grayscale and color Doppler imaging was performed and targeted to th e area of clinical concern. The soft tissues of the medial aspect of the left ankle was evaluated sonographically. There is a 4. 3 x 1.4 x 2.8 cm complex fluid collection in the subcutaneous tissues. There is increased blood flow surrounding the region. Primary diagnostic concern is for an abscess. Hematoma or seroma cannot be excluded. Please correlate clinically. DATA REPOSITORY:
[2019-04-27] MEDS: Acetaminophen 500 MG TAB 1000 MG PO ×2 (13:35→17:56)
--- NOTE | 2019-04-27 13:37 | W.PM.PROGNOT ---
Date of Service Date of service: 04/27/19 Time of Service: 13:38 Assessment and Plan Assessment and plan (1) Abscess of leg, left: Status: Acute Assessment and plan: ultrasound confirms abscess, will place surgical consult for I&D and wound culture. (2) Cellulitis of left leg: Status: Acute Assessment and plan: continues to slowly improve but now with new abscess. will continue current course of antibiotics. wound care following and recommendations for unna boot. continue elevation and monitoring. (3) Opioid abuse: Status: Acute Assessment and plan: continue current pain regimen, taper as able (4) Tobacco abuse: Status: Acute Assessment and plan: nicotine replacement while hospitalized (5) DVT prophylaxis: Status: Acute Assessment and plan: enoxaparin daily (6) Discharge planning issues: Status: Acute Assessment and plan: will discharge to home when stable. Subjective Subjective Interval history since last seen: edema improving. wounds to leg are dry and scabbed over. area to medial aspect of left lower extremity above ankle with increased redness, swelling and pain, area fluctuant. no fevers, CRP improved today. eating and drinking well, voiding without difficulty. no reported diarrhea. Exam Const General: cooperative, healthy appearing, comfortable and no acute distress Nutritional Appearance: average body habitus Orientation: alert, awake and oriented x3 Resp Effort & Inspection: normal respiratory effort Cardio Rate: regular rate Rhythm: regular rhythm GI Inspection: normal to inspection Palpation: soft Skin General skin exam: crusts (wounds to left lower extremity crusted over) and erythema Rashes: rashes noted (left lower, medial 4cm x 3 cm fluctant area consistent with abscess) Extrem General: pedal edema (lower extremity, improved since last seen, ) on the left Objective Objective Clinical Data: Vital Signs Temperature 36.7 C 04/27/19 08:35 Temperature Source Tympanic 04/27/19 08:35 Pulse 72 04/27/19 08:35 Pulse Rhythm Regular 04/26/19 23:35 Respiratory Rate 14 04/27/19 08:35 Respiratory Effort Non-Labored 04/26/19 23:35 Respiratory Depth Normal 04/26/19 23:35 Respiratory Pattern Normal 04/26/19 23:35 Blood Pressure 111/69 04/27/19 08:35 Pulse Oximetry 100 04/27/19 08:35 Oxygen Delivery Method Room Air 04/27/19 08:35 Oxygen Flow Rate 0 03/05/20 08:35 Pain Level 6 04/27/19 08:35 Comment 04/25/19 07:29 Intake & Output 04/26/19 04/27/19 04/27/19 23:59 11:59 23:59 Intake Total 480 / 1240 560 / 1040 480 / 1040 Balance 480 / 1240 560 / 1040 480 / 1040 Intake: Oral 480 / 1040 560 / 1040 480 / 1040 Other: Voiding Methods Toilet Laboratory Results C-Reactive Protein 1.90 mg/dL (0.0-0.3) H 04/26/19 06:33
[2019-04-27] MEDS: Normal Saline Flush 10 ML SYR IVP ×2 (13:38→21:58)
[2019-04-27] MEDS: Enoxaparin 40 MG/0.4 ML SYR SC (13:57)
--- NOTE | 2019-04-27 15:44 | NUR.NOTE ---
Nursing Note: Drsg removed from LLE. large scabbed/escar areas surrounding circumference of leg. Aquacell BID not appropriate at this time due to dry nature of wounds on Pt's leg. MD and TRUCK SUPERVISOR notified. Unna boot would be a more appropriate drsg choice @ this time after surgical consult is done to assess Pt's medial ankle. Swelling and fluctuance noted to medial ankle, ultrasound ordered. LE wrapped w/NS moistened kerlix @ this time. notifed.
--- NOTE | 2019-04-27 16:27 | W.SURGCON ---
Date of service: 04/27/19 Time of Service: 16:27 Assessment and Plan Assessment and plan (1) Abscess of leg, left: Status: Acute Assessment and plan: plan I & D in am. risk: bleeding/infection/chronic pain or numbness. need for skin graft. prolonged healing. los of sensation or motor function. cont abx cultures OR in am (pt ate lunch) (2) Opioid abuse: Status: Acute (3) Tobacco abuse: Status: Acute (4) Cellulitis of left leg: Status: Acute History of Present Illness Narrative: Pt recently [facility] out of [facility]. He is homeless. He was screened for MRSA and it was neg. He is heavy smoker. He does have good DP pulses. He has hx of tob/opoid abuse. there are no problems on RLE on LLE: circumferential eschars- black and necrotic- in circumferential pattern from knee to ankle. depth unknown. there is signif desquamation of the LLE as well. It is still red/swollen- but better than it was per WOC RN. Consults Consult date: 04/27/19 Review of Systems Constitutional Comments: denies dm/cad/ MRSA. He denies trauma/injury or picking no fever/chills. wound is dry w/ minimal drainage. still red and swollen. pt has a hx of skin infections no problems w/ anethesia in the past. [facility] Medical History No active medical problems (Acute) Surgical History History of incision and drainage (Inactive) Left sternal-clavicular septic joint Social History Smoking/Tobacco Use Status: Former Tobacco Use Alcohol Intake: former Drug use: Current Sobriety Substance use type: former substance user Exam Const General: cooperative, no acute distress and disheveled Nutritional Appearance: malnourished Other: appears much older than stated age HENMT Teeth and gingiva: poor dentition Resp Effort & Inspection: normal respiratory effort, able to speak in complete sentences and cough (chronic smokers cough ) Quality of cough: dry Cardio Rate: regular rate Rhythm: regular rhythm GI Palpation: soft and tender Skin Other: mult old scars from previous soft tissue infection lg Escher over the entire LLE. from ankle to hutchison. black thick- depth prob to fat layer. circumferential 4cm abscess just above medial ankle. sensation intact. Hx of tinea peds- no evidence of acute infection at this time. skin is desquamation. leg is still red and swollen. Better per RN. +DP pulse. Results Last Vital Signs Temp 36.7 C 04/27/19 08:35 Pulse 72 04/27/19 08:35 Resp 14 04/27/19 08:35 BP 111/69 04/27/19 08:35 Pulse Ox 100 04/27/19 08:35
[2019-04-27 16:41] VITALS: BP 116/75; PULSE 88; RESP 15; TEMP 36.4; O2SAT 99
--- NOTE | 2019-04-28 | DI.MRI_ITS ---
EXAM: MR LOWER JOINT LT WO/W CLINICAL HISTORY: Abscess, CONCERN FOR OSTEOMYELITIS TECHNIQUE: Multiplanar multisequence MRI was performed. COMPARISON: No exams were available for comparison FINDINGS: Bones: Marrow signal is within normal limits. No MRI findings to suggest acute osteomyelitis. No fi ndings to suggest an occult fracture. Joints: Unremarkable. Soft tissues: There is hyperintense signal seen in the soft tissues of the lower leg, ankle and foot. These areas show enhancement following contrast administration consistent with cellulitis. There i s a peripherally enhancing cavity measuring 4.7 x 2.3 x 2.3 cm in the subcutaneous tissues in the pos terior medial lower leg. This communicates with the skin surface. This likely reflects a postsurgic al cavity with surgical packing inside seen. Abscess cannot be excluded. Please correlate with the patient's surgical history. There are several small peripherally enhancing fluid signal collections in the subcutaneous tissues medially. These are most suggestive of tiny abscesses. Muscles: Unremarkable. Tendons: Unremarkable. IMPRESSION: 1. No findings to suggest acute osteomyelitis. 2. Findings of cellulitis and tiny abscesses in the subcutaneous tissues of the lower leg. 3. Postoperative changes seen in the posterior medial lower leg. The findings likely reflect surgical packing within the surgical defect. Abscess cannot be excluded. Please correlate with the patient' s surgical history. DATA REPOSITORY:
[2019-04-28 00:02] VITALS: BP 119/77; PULSE 70; RESP 16; TEMP 36.3; O2SAT 99
[2019-04-28] MEDS: Normal Saline Flush 10 ML SYR IVP ×5 (00:02→22:55)
[2019-04-28] MEDS: Lactated Ringers 1,000 ML 100 ML IV ×3 (00:02→15:46)
[2019-04-28] MEDS: Clindamycin 150 MG CAP 450 MG PO ×2 (04:57→10:33)
[2019-04-28 07:05] VITALS: BP 117/75; PULSE 71; RESP 19; TEMP 37.2; O2SAT 98
[2019-04-28 07:46] LABS: Platelet Count 540 x1000/uL (130-400)
[2019-04-28] MEDS: HYDROmorphone 2 MG/ML VIAL IVP ×4 (07:59→22:56)
[2019-04-28] MEDS: Docusate Sodium 100 MG CAP PO ×2 (08:01→20:12)
[2019-04-28] MEDS: Gabapentin 100 MG CAP PO ×2 (08:01→17:26)
[2019-04-28] MEDS: Ibuprofen 600 MG TAB PO ×3 (08:02→23:51)
[2019-04-28] MEDS: oxyCODONE 5 MG TAB 10 MG PO ×3 (08:10→22:59)
[2019-04-28] MEDS: Acetaminophen 500 MG TAB 1000 MG PO ×2 (08:28→17:26)
[2019-04-28] MEDS: Lactobacillus Acidophilus CAP 1 CAP PO ×2 (08:30→20:12)
[2019-04-28 09:39] LABS: Iron 75 ug/dL (65-175)
[2019-04-28] MEDS: LORazepam 2 MG/ML VIAL 1 MG IVP (10:40)
[2019-04-28 11:00] VITALS: BP 120/82; PULSE 80; RESP 18; TEMP 37; O2SAT 96
[2019-04-28 12:25] LABS: Ferritin 186 ng/mL (26-388)
[2019-04-28 15:50] VITALS: BP 130/85; PULSE 62; RESP 18; TEMP 36; O2SAT 98
[2019-04-28 16:00] VITALS: BP 113/75; PULSE 72; RESP 20; TEMP 36.1; O2SAT 97
[2019-04-28] MEDS: Gadoterate meglumine 20 ML VIAL IVP (17:22)
[2019-04-28] MEDS: CLINDAMYCIN 900 MG/50 ML BAG 50 MG IVPB (17:31)
--- NOTE | 2019-04-28 17:50 | DI.VRAD_ITS ---
PROCEDURE INFORMATION: Exam: MR Left Lower Extremity Joint Without and With Contrast; Ankle Exam date and time: 04/28/2019 5:24 PM Age: 48 years old Clinical indication: Condition or disease; Other: Cellulitis, mass, post-op; Prior surgery; Surgery date: Post-operative (0-2 days); Surgery type: Surgery 04/28/19 TECHNIQUE: Imaging protocol: MR of the Left ankle without and with contrast. Contrast material: DOTAREM; Contrast volume: 20 ml; Contrast route: IV; COMPARISON: CT LOWER EXTREMITY LT W 04/14/2019 9:02 AM FINDINGS: Bones and cartilage: No osteomyelitis or fracture. The ankle, subtalar, talonavicular and calcaneocuboid joints are unremarkable. Soft tissues: DIffuse swelling, fluid signal and enhancement of the subcutaneous tissues of the distal aspect of the lower leg, ankle and foot is consistent with cellulitis in the proper clinical setting. There is a rim enhancing cavity measuring approximately 4.7 cm long by 2.3 cm AP x 2.3 cm transverse within the subcutaneous tissues of the posterior medial aspect of the the distal lower leg centered approximately 3 cm above the ankle joint. This cavity communicates with the skin surface and is likely filled with surgical packing. Correlate clinically as abscess is not excluded. There are multiple tiny nonenhancing fluid signal collections within the subcutaneous tissues at the medial aspect of the distal hutchison centered approximately 10 cm above the ankle joint, consistent with multiple tiny abscesses (axial images 25 through 31 of series [id number]). IMPRESSION: 1. Findings consistent with cellulitis of the lower extremity. 2. Postoperative changes from wound debridement and surgical packing of residual cavity at the posterior medial aspect of the lower leg. 3. Multiple tiny abscesses within the subcutaneous tissues of the medial aspect of the distal lower leg centered approximately 10 cm above the ankle joint. Dictated and Authenticated by: Emerson Sahu MD. Ordering:CHERI Patel MD
[2019-04-28] MEDS: Normal Saline Flush 10 ML SYR 20 ML IVP (18:57)
--- NOTE | 2019-04-28 19:10 | W.PM.PROGNOT ---
Date of Service Date of service: 04/28/19 Time of Service: 19:10 Assessment and Plan Assessment and plan (1) Venous stasis ulcer of ankle: Status: Acute (2) Acute venous stasis dermatitis: Status: Acute (3) Cellulitis and abscess of left lower extremity: Status: Acute Assessment and plan: given the findings at surgery- and the pt hx, and the long standing hx of this infection, i do think we need to be concerned about osteo. I think he needs an MRI and CT angio. cont IV abx we can do a wound vac of the abscess cavity- which is [id number] while he is in hosp (currently packed wet to dry) and apply unna boot for the rest of the limb. check mri and CT angio will follow clinda and dicloxacillin. cultures pd. (4) Opioid abuse: Status: Acute (5) Tobacco abuse: Status: Acute (6) Discharge planning issues: Status: Acute Subjective Subjective Interval history since last seen: pt is still numb from spinal dressing is c/d/i. i D/w pt findings at the time of usrgery. He is currently homeless. [facility]. He was not be treated for infection or w/ compression. He says his leg has been a mess for a long time. 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 no DM. He denies skin popping in the LLE. The pt is not a good historian. It is unclear how long this has truly been going on. He was in halfway for the past 6m. His MRSA screen was neg. He was beenin hospon IV abx since 04/14. this is down to the tendons/mescle. I am concerned that this could represent and osteo. We should have some baseline of his vascular status. We cannot do NICOLE's. Objective Objective Clinical Data: Abnormal lab results 04/28/19 04/28/19 Range/Units 07:29 07:29 Plt Count 540 H (130-400) x1000/uL C-Reactive Protein 1.60 H (0.0-0.3) mg/dL Vital Signs Temperature 36.1 C L 04/28/19 16:00 Temperature Source Tympanic 04/28/19 16:00 Pulse 72 04/28/19 16:00 Pulse Rhythm Regular 04/28/19 16:41 Respiratory Rate 20 04/28/19 16:00 Respiratory Effort 04/28/19 16:41 Respiratory Depth Normal 04/28/19 16:41 Respiratory Pattern Normal 04/28/19 16:41 Blood Pressure 113/75 04/28/19 16:00 Pulse Oximetry 97 04/28/19 16:00 Oxygen Delivery Method Room Air 04/28/19 16:00 Oxygen Flow Rate 0 04/28/19 16:00 Pain Level 7 04/28/19 18:58 Comment 04/25/19 07:29 Intake & Output 04/27/19 04/28/19 04/28/19 23:59 11:59 23:59 Intake Total 1440 1999 985 / 1823.333 838.333 / 1823.333 Balance 1440 / 1999 985 / 1823.333 838.333 / 1823.333 Intake: IV 985 / 1573.333 588.333 / 1573.333 Oral 1440 / 1999 250 / 250 Other: Urine Appearance Clear Clear Comment voiding indepndently w/o difficulty Laboratory Results Plt Count 540 x1000/uL (130-400) H 04/28/19 07:29 Iron 75 ug/dL (65-175) 04/28/19 07:29 Ferritin 186 ng/mL (26-388) 04/28/19 07:29 C-Reactive Protein 1.60 mg/dL (0.0-0.3) H 04/28/19 07:29
[2019-04-28 23:55] VITALS: BP 119/72; PULSE 80; RESP 20; TEMP 36.1; O2SAT 96
[2019-04-29] MEDS: CLINDAMYCIN 900 MG/50 ML BAG 50 MG IVPB ×3 (02:15→18:37)
[2019-04-29] MEDS: Lactated Ringers 1,000 ML 100 ML IV (02:23)
[2019-04-29] MEDS: oxyCODONE 5 MG TAB 10 MG PO ×4 (03:08→16:15)
[2019-04-29] MEDS: Acetaminophen 500 MG TAB 1000 MG PO ×2 (03:08→13:56)
[2019-04-29] MEDS: Normal Saline Flush 10 ML SYR IVP ×4 (03:09→14:37)
[2019-04-29] MEDS: HYDROmorphone 2 MG/ML VIAL IVP ×4 (03:09→11:18)
[2019-04-29] MEDS: Ibuprofen 600 MG TAB PO ×3 (05:48→18:36)
[2019-04-29] MEDS: Gabapentin 100 MG CAP PO ×3 (07:38→21:46)
[2019-04-29] MEDS: Lactobacillus Acidophilus CAP 1 CAP PO ×3 (07:39→21:46)
[2019-04-29] MEDS: Docusate Sodium 100 MG CAP PO ×2 (07:39→21:46)
[2019-04-29] MEDS: Normal Saline Flush 10 ML SYR 20 ML IVP ×2 (07:47→21:48)
[2019-04-29] MEDS: Omnipaque 350 MG/ML 100 ML BTL IJ (09:06)
[2019-04-29] MEDS: Omnipaque 350 MG/ML 50 ML BTL IJ (09:07)
[2019-04-29] MEDS: Normal Saline - Diluent 50 ML VIAL IV (09:08)
--- NOTE | 2019-04-29 09:09 | DI.CT_ITS ---
EXAM: CT LOWER EXTREMITY LT CTA CLINICAL HISTORY: venous stasis LLE/smoker/non healing infection/ COMPARISON: No exams were available for comparison FINDINGS: External iliac artery: No occlusion or significant stenosis. Femoral and popliteal arteries: No occlusion or significant stenosis. Infrapopliteal arteries: No occlusion or significant stenosis. There is a 2.5 x 2.2 cm defect in the medial soft tissues just above the medial malleolus. Findings may represent infection/abscess or ulcer. There is edema seen in the soft tissues with skin thickeni ng below the knee suggesting cellulitis. Bones: Intact. No evidence of a destructive lesion. Small suprapatellar joint effusion of the knee. IMPRESSION: 1. No evidence of arterial occlusion or significant stenosis. 2. 2.5 x 2.2 cm soft tissue defect just above the medial malleolus. 3. Soft tissue edema and skin thickening of the lower leg.
--- NOTE | 2019-04-29 09:42 | DI.VRAD_ITS ---
PROCEDURE INFORMATION: Exam: CTA Left Lower Extremity With Contrast Exam date and time: 04/29/2019 12:00 AM Age: 48 years old Clinical indication: Other: Venous stasis lle/smoker/non healing infection TECHNIQUE: Imaging protocol: Computed tomographic angiography of the Left lower extremity with intravenous contrast. 3D rendering: MIP and/or 3D reconstructed images were created by the technologist. Radiation optimization: All CT scans at this facility use at least one of these dose optimization techniques: automated exposure control; mA and/or kV adjustment per patient size (includes targeted exams where dose is matched to clinical indication); or iterative reconstruction. Contrast material: OMNIPAQUE 350; Contrast volume: 150 ml; Contrast route: PICC; COMPARISON: CT LOWER EXTREMITY LT W 04/23/2019 9:15 AM FINDINGS: Left femoral/popliteal arteries: No occlusion or significant stenosis. Left infrapopliteal arteries: No occlusion or significant stenosis. Bones/joints: Small suprapatellar joint effusion. Soft tissues: 2.5 x 2 2 cm open wound in the medial aspect the ankle. 5:191-200. It contains debris. Findings may reflect infection. Again noted are mild inflammatory changes in the subcutaneous fat of the thigh and lower leg.. Other findings: No stenosis or occlusion IMPRESSION: 1. 2.5 x 2 2 cm open wound in the medial aspect the ankle. 5:191-200. It contains debris. Findings may reflect infection. 2. Again noted are mild inflammatory changes in the subcutaneous fat of the thigh and lower leg.. 3. Small suprapatellar joint effusion. 4. No stenosis or occlusion Dictated and Authenticated by: Tierra Alicea MD. Ordering:ANGEL LUIS Appiah MD
--- NOTE | 2019-04-29 11:06 | PGE_ITS ---
Date of Service Date of service: 04/29/19 Time of Service: 11:06 Assessment and Plan Assessment and plan (1) Cellulitis and abscess of left lower extremity: Status: Acute Assessment and plan: Surgical treatment of abscess with deep cavity, MRI showing some micro abscesses more proximally but no osteomyelitis. CT angiography without obstructive arterial disease. No culture results to help guide antibiotic choice. We have left following clinically. No change in antibiotics, either dose or route of administration. Recheck CBC and CRP tomorrow. (2) Acute venous stasis dermatitis: Status: Acute Assessment and plan: Edema much less. Continue compression wraps. (3) Pain management: Status: Acute Assessment and plan: Dressing change and packing very painful. Chronic buprenorphine use complicates pain management somewhat. I am increasing the dose of hydromorphone and decreasing the interval between doses for both hydromorphone and oxycodone. No change in buprenorphine dosing at this time. Cautioned on potential for relapse of opiate addiction behaviors. (4) Tobacco abuse: Status: Acute Assessment and plan: Doing okay with Nicotrol inhalers. Continue same. (5) Opioid abuse: Status: Acute Assessment and plan: Concerns as noted above regarding potential for relapse with use of parenteral and oral opiates. I am not stopping his buprenorphine at this point even though it may be interfering with action of the shorter acting opiates. I think that stopping the buprenorphine since the wrong signal and there may be some psychological fallout if it was discontinued. Subjective Subjective Interval history since last seen: Incision and drainage yesterday, large abscess. Follow-up MRI with no MRI evidence of osteomyelitis, micro abscesses seen more proximal. CT angiography this morning with no evidence of occlusive arterial disease. Reports less pain in the proximal left leg but more pain at the abscess/surgical site. No fever overnight. Oxycodone and hydromorphone helps a little bit with his pain but does not last long enough, and he does not think the current doses are sufficient for managing his pain. Continues on buprenorphine (without naloxone). No nausea or vomiting. Having bowel movements. Denies any difficulty urinating. Is using Nicotrol inhalers and does not want the nicotine patches. No cough. Exam Narrative Exam Narrative: Afebrile, comfortable with leg elevated and not moving his ankle. Pain at the surgical site/abscess site if he dorsiflex or plantarflex his ankle. Awake alert not sedated. No JVD. Lungs clear. No heart murmur. Surgical scar left upper chest where he states he had an abscess in 2018 managed at [facility]. Active bowel sounds with no abdominal tenderness. Left lower extremity dressing unwrapped with Dr. Cuadra, chronic increased pigmentation of the left lower leg from just below the knee to his foot. There is some peeling skin, old ecchymoses and superficial skin erosions. Quarter sized opening of the abscess with a large amount of packing that was removed. Quite a bit of pain reported by the patient when removing the packing. Distal foot is warm, dorsalis pedis pulse good. Objective Objective Clinical Data: Vital Signs Temperature 36.1 C L 04/28/19 23:55 Temperature Source Tympanic 04/28/19 23:55 Pulse 80 04/28/19 23:55 Pulse Rhythm Regular 04/29/19 06:30 Respiratory Rate 20 04/28/19 23:55 Respiratory Effort 04/29/19 06:30 Respiratory Depth Normal 04/29/19 06:30 Respiratory Pattern Normal 04/29/19 06:30 Blood Pressure 119/72 04/28/19 23:55 Pulse Oximetry 96 04/28/19 23:55 Oxygen Delivery Method Room Air 04/28/19 23:55 Oxygen Flow Rate 0 04/28/19 23:55 Pain Level 10 04/29/19 10:51 Comment 04/28/19 23:55 Intake & Output 04/28/19 04/28/19 04/29/19 11:59 23:59 11:59 Intake Total 985 / 1923.333 938.333 / 9392.400 7803 / 1150 Balance 985 / 1923.333 938.333 / 5068.479 6748 / 1150 Intake: IV 985 / 1673.333 688.333 / 4980.530 5325 / 1150 Oral 250 / 250 Other: Urine Appearance Clear Clear Clear Comment Urine not measured, voiding independently Voiding Methods Toilet Laboratory Results Plt Count 540 x1000/uL (130-400) H 04/28/19 07:29 Iron 75 ug/dL (65-175) 04/28/19 07:29 Ferritin 186 ng/mL (26-388) 04/28/19 07:29 C-Reactive Protein 1.60 mg/dL (0.0-0.3) H 04/28/19 07:29
--- NOTE | 2019-04-29 11:24 | NUR.NOTE ---
Dr. Bagley came to asess patients left leg and patient was not in a good mood at this time. Patient stated his pain was not controlled and he needed more meds. Dr. Donis ordered a now dose of 2mg Dilaudid. Dr. Bagley gave orders for wound dressing and patient states he will not have wound dressed until pain is controlled. Another dose od Dilaudid 2mg given. Patioent threatening to leave AMA. aviculturist aware. Patient states RN will not pack wound at this time and will wait till he is ready Nursing Note:
[2019-04-29 11:37] VITALS: BP 131/84; PULSE 84; RESP 16; TEMP 36.5; O2SAT 98
--- NOTE | 2019-04-29 12:01 | W.PM.PROGNOT ---
Date of Service Date of service: 04/29/19 Time of Service: 12:01 Assessment and Plan Assessment and plan (1) Cellulitis and abscess of left lower extremity: Status: Acute Assessment and plan: The swelling and erythema are improved Dr. Donis is working with the patient on pain control See wound care orders. Subjective Subjective Interval history since last seen: Patient reports poor pain control Exam Narrative Exam Narrative: Dressing and packing removed from left medial ankle. Abscess is well drained. Skin opening about 2cm with undermined cavity present Calf edema is minimal, shallow areas of skin loss present. Objective Objective Clinical Data: Vital Signs Temperature 97.7 F 04/29/19 11:37 Temperature Source Tympanic 04/29/19 11:37 Pulse 84 04/29/19 11:37 Pulse Rhythm Regular 04/29/19 06:30 Respiratory Rate 16 04/29/19 11:37 Respiratory Effort 04/29/19 06:30 Respiratory Depth Normal 04/29/19 06:30 Respiratory Pattern Normal 04/29/19 06:30 Blood Pressure 131/84 04/29/19 11:37 Pulse Oximetry 98 04/29/19 11:37 Oxygen Delivery Method Room Air 04/29/19 11:37 Oxygen Flow Rate 0 04/29/19 11:37 Pain Level 7 04/29/19 11:51 Comment 04/28/19 23:55 Intake & Output 04/28/19 04/29/19 04/29/19 23:59 11:59 23:59 Intake Total 938.333 / 1354.144 5012 / 1150 Balance 938.333 / 4344.485 6947 / 1150 Intake: IV 688.333 / 2796.839 3181 / 1150 Oral 250 / 250 Other: Urine Appearance Clear Clear Comment Urine not measured, voiding independently Voiding Methods Toilet Laboratory Results Plt Count 540 x1000/uL (130-400) H 04/28/19 07:29 Iron 75 ug/dL (65-175) 04/28/19 07:29 Ferritin 186 ng/mL (26-388) 04/28/19 07:29 C-Reactive Protein 1.60 mg/dL (0.0-0.3) H 04/28/19 07:29
[2019-04-29] MEDS: Enoxaparin 40 MG/0.4 ML SYR SC (13:56)
--- NOTE | 2019-04-29 13:58 | PHARADMIT ---
Pharmacy Note Subjective Cellulitis and abscess of left lower extremity went to OR yesterday Objective pt in significant pain this AM Assessment clindamycin/oxacillin continue Gets Vyvanse 70mg sent up from pharmacy each day. Suboxone continues.dc nicotine patch, nocotrol inhaler still ordered, hydromorphone dose adjusted Plan watch for pain control,possibly bowel meds
[2019-04-29] MEDS: HYDROmorphone 2 MG/ML VIAL 4 MG IVP ×3 (14:35→21:47)
[2019-04-29 16:04] VITALS: BP 134/82; PULSE 92; RESP 18; TEMP 36.5; O2SAT 98
[2019-04-30 00:05] VITALS: BP 115/70; PULSE 88; RESP 17; TEMP 37; O2SAT 97
[2019-04-30] MEDS: Ibuprofen 600 MG TAB PO ×4 (00:07→17:56)
[2019-04-30] MEDS: Acetaminophen 500 MG TAB 1000 MG PO ×4 (00:08→19:48)
[2019-04-30] MEDS: oxyCODONE 5 MG TAB 10 MG PO ×8 (00:08→22:46)
[2019-04-30] MEDS: Normal Saline Flush 10 ML SYR IVP ×8 (00:11→22:47)
[2019-04-30] MEDS: HYDROmorphone 2 MG/ML VIAL 4 MG IVP ×6 (00:49→22:47)
[2019-04-30] MEDS: CLINDAMYCIN 900 MG/50 ML BAG 50 MG IVPB ×3 (01:56→18:35)
[2019-04-30] MEDS: Normal Saline 500 ML 30 ML IVPB (06:17)
[2019-04-30 07:09] LABS: HGB 10.3 g/dL (13.5-17.5); Mean Corp. HGB Concentration 32.2 g/dL (32.0-36.0); Mean Corpuscular Hemoglobin 31.2 pg (27.0-33.0); Mean Platelet Volume 8.8 fL (8.0-11.0); Platelet Count 451 x1000/uL (130-400); RBC Distribution Width 13.1 % (11.8-14.1); White Blood Cell Count 3.35 k/cumm (4.4-10.8)
[2019-04-30 07:24] LABS: C-Reactive Protein 1.06 mg/dL (0.0-0.3)
[2019-04-30] MEDS: Gabapentin 100 MG CAP PO ×3 (08:17→19:49)
[2019-04-30] MEDS: Lactobacillus Acidophilus CAP 1 CAP PO ×3 (08:17→19:47)
[2019-04-30] MEDS: Docusate Sodium 100 MG CAP PO ×2 (08:17→19:47)
[2019-04-30] MEDS: Normal Saline Flush 10 ML SYR 20 ML IVP ×2 (08:18→19:50)
[2019-04-30 08:48] VITALS: BP 132/91; PULSE 90; RESP 16; TEMP 36.5; O2SAT 98
--- NOTE | 2019-04-30 10:09 | W.PM.PROGNOT ---
Date of Service Date of service: 04/30/19 Time of Service: 10:10 Assessment and Plan Assessment and plan (1) Cellulitis and abscess of left lower extremity: Status: Acute Assessment and plan: Continues on IV oxacillin and clindamycin with no culture results positive to help guide therapy. At this point I plan on continuing parenteral antibiotics for at least another 24 hours and if wound appearance and discomfort continue to improve consider switching back to oral antibiotics. (2) Acute venous stasis dermatitis: Status: Acute Assessment and plan: Edema much less. Continue compression wraps. (3) Pain management: Status: Acute Assessment and plan: Use of IV hydromorphone has been every 3 hours. Expressed my concern regarding opiate use relapse. A bit of pushed back regarding adequate pain control. I am increasing the interval between IV hydromorphone doses, keeping the interval for p.o. oxycodone the same with the plan of gradually tapering off the IV hydromorphone. Continue buprenorphine at current dose. Continue scheduled ibuprofen. I am not sure gabapentin is adding much but no adverse effects, no changes made. (4) Tobacco abuse: Status: Acute Assessment and plan: Doing okay with Nicotrol inhalers. Continue same. (5) Opioid abuse: Status: Acute Assessment and plan: Tapering down on his opiate pain medications as noted above. Continue buprenorphine at current dose. Subjective Subjective Interval history since last seen: Pain control, as manifested by his behaviors of walking some, seems to be adequate. Denies cough, shortness of breath. A little bit of loose stools but no ashley diarrhea. Appetite okay. Getting bored. Anxious to be discharged. Has not been febrile. Low white count (probably from chronic hep C) platelet count coming down which I interpret as a acute phase reactant marker. CRP down slightly. Requesting IV hydromorphone pretty consistently every 3 hours. Exam Narrative Exam Narrative: Comfortable with foot up, lying in bed. Afebrile. Blood pressure 132/91 SaO2 98% on room air. No JVD. Lungs are clear. No heart murmur S3 or S4. Active bowel sounds. I did not remove the dressing from his left leg. He does not have tenderness to palpation from the knee to about 10 cm above the ankle area then there is some tenderness. Passive plantarflexion and dorsiflexion of the ankle does not provoke pain complaints. Objective Objective Clinical Data: Abnormal lab results 04/30/19 04/30/19 Range/Units 06:30 06:30 WBC 3.35 L (4.4-10.8) k/cumm RBC 3.30 L (4.50-6.00) m/cumm Hgb 10.3 L (13.5-17.5) g/dL Hct 32.0 L (40.0-50.0) % MCV 97.0 H (80-95) fL Plt Count 451 H (130-400) x1000/uL C-Reactive Protein 1.06 H (0.0-0.3) mg/dL Vital Signs Temperature 36.5 C 04/30/19 08:48 Temperature Source Tympanic 04/30/19 08:48 Pulse 90 04/30/19 08:48 Pulse Rhythm Regular 04/30/19 07:15 Respiratory Rate 16 04/30/19 08:48 Respiratory Effort 04/30/19 07:15 Respiratory Depth Normal 04/30/19 07:15 Respiratory Pattern Normal 04/30/19 07:15 Blood Pressure 132/91 H 04/30/19 08:48 Pulse Oximetry 98 04/30/19 08:48 Oxygen Delivery Method Room Air 04/30/19 08:48 Oxygen Flow Rate 0 04/30/19 08:48 Pain Level 0 04/30/19 08:48 Comment 04/28/19 23:55 Intake & Output 04/29/19 04/29/19 04/30/19 11:59 23:59 12:59 Intake Total 1700 / 2340 640 / 2340 477.0 / 477.0 Output Total 500 / 500 Balance 1200 / 1840 640 / 1840 477.0 / 477.0 Intake: IV 1200 / 1350 150 / 1350 117.0 / 117.0 Oral 500 / 990 490 / 990 360 / 360 Output: Urine 500 / 500 Other: Urine Color Yellow Urine Appearance Clear Urine Odor None Comment per patient patient uses toilet independently Voiding Methods Urinal Toilet Toilet Laboratory Results WBC 3.35 k/cumm (4.4-10.8) L 04/30/19 06:30 RBC 3.30 m/cumm (4.50-6.00) L 04/30/19 06:30 Hgb 10.3 g/dL (13.5-17.5) L 04/30/19 06:30 Hct 32.0 % (40.0-50.0) L 04/30/19 06:30 MCV 97.0 fL (80-95) H 04/30/19 06:30 MCH 31.2 pg (27.0-33.0) 04/30/19 06:30 MCHC 32.2 g/dL (32.0-36.0) 04/30/19 06:30 RDW 13.1 % (11.8-14.1) 04/30/19 06:30 Plt Count 451 x1000/uL (130-400) H 04/30/19 06:30 MPV 8.8 fL (8.0-11.0) 04/30/19 06:30 Iron 75 ug/dL (65-175) 04/28/19 07:29 Ferritin 186 ng/mL (26-388) 04/28/19 07:29 C-Reactive Protein 1.06 mg/dL (0.0-0.3) H 04/30/19 06:30
--- NOTE | 2019-04-30 11:25 | NUR.NOTE ---
04/29/2019 Dr. Bagley at patients bedside and she cute off surgical dressing and looking at the wound on left leg. Dr. Donis at bedside as well. Patient expressing to patient that he does not feel he is getting enough pain coverage. Dr. Donis stated to patient that he would increase the frequency of the dilaudid. Patient appeared upset and said that 2mg was not enough and it would not cover his pain or do enough for him. Patient told Dr. Donis he wanted dose and frequency increased. Dr. Donis stated we will start with increasing the frequency. Pt appeared very upset. food porter Ritu was notified. Nursing Note:
[2019-04-30] MEDS: Clotrimazole 1% 15 GM TUBE TP (12:14)
[2019-04-30] MEDS: Enoxaparin 40 MG/0.4 ML SYR SC (13:23)
[2019-04-30 15:25] VITALS: BP 114/72; PULSE 79; RESP 19; TEMP 36.8; O2SAT 94
[2019-04-30 15:40] VITALS: PULSE 80; RESP 20
--- NOTE | 2019-04-30 16:22 | WOUNDCONS_ITS ---
Wound Initial Evaluation Narrative: Patient has areas of firmly adherent hardened scabs on left lower leg at site of resolving cellulitis. Able to remove some scabs with cleansing and gauze. Patient reports area is less edematous and less painful than admission. No open areas noted. Eucerin cream used on healthy skin on left lower leg and foot. - Wound Left Tib/Fib(lower leg) Wound Type: Full Thickness Wound General Appearance: Healing Well Wound Surrounding Tissue Appearance: [place] Percent of Wound Bed Eschar/Black: 100 (scabs intact on lower leg. No open areas noted) Wound Length: 7.48 in Wound Width: 3.27 in Wound Drainage Amount: None Wound Drainage Odor: None/Absent Wound Debridement Method: Gauze Wound Debridement Result: Healthy Tissue Revealed Wound Debridement Amount of Tissue Removed: Minimal Left Ankle Wound Type: Incision Wound General Appearance: Draining Wound Bed Greatest Portion: Red (Granulation) Percent of Wound Bed Granulated/Red: 100 Wound Length: 0.59 in Wound Width: 0.39 in Wound Depth: 0.35 in Wound Drainage Amount: Minimal Wound Drainage Odor: None/Absent Wound Drainage Description: Bloody Wound Topical Solution/Irrigant: Saline Irrigant - Circulation, Sensation, Motion Edema Degree: 1+ Peripheral Pulse Strength: Normal Capillary Refill: Less than 3 seconds Sensation Description: Pain Skin Temperature: Warm Skin Color: Dayo - Pain Pain Level: 7 (increased pain with dressing cahnge- premeds given) Pain Scale Used: Adult Pain Description: Acute Pain Duration/Frequency: Constant left inner ankle wound an I and D location. Packing strip used 1 piece after cleasning with saline. undermining on distal half of wound up to 1.4 cm at 6 o 'clock. - Treatment/Dressing Change Cleanse With: Saline Dressing Types: Kerlix (Gauze Roll), Sterile Gauze, Xeroform, Nu-Gauze - Recomendation Physcian/Nurse Practioner Notified: Yes (Dr. Donis) Referrals: Dietary
--- NOTE | 2019-04-30 20:20 | PGE_ITS ---
Date of Service Date of service: 04/30/19 Time of Service: 18:00 Assessment and Plan Assessment and plan (1) Cellulitis and abscess of left lower extremity: Status: Acute Assessment and plan: The patient has taken care of wounds before and feels that he would be able to pack the ankle wound after discharge. He plans to establish primary care in [place] but does not have an appointment until May. Agree with hospitalist plan of transitioning to oral antibiotics. Still requiring IV pain meds. Subjective Subjective Interval history since last seen: Patient was outside walking around. Dressing change went well today Exam Narrative Exam Narrative: Minimal leg edema Dressing in place Objective Objective Clinical Data: Abnormal lab results 04/30/19 04/30/19 Range/Units 06:30 06:30 WBC 3.35 L (4.4-10.8) k/cumm RBC 3.30 L (4.50-6.00) m/cumm Hgb 10.3 L (13.5-17.5) g/dL Hct 32.0 L (40.0-50.0) % MCV 97.0 H (80-95) fL Plt Count 451 H (130-400) x1000/uL C-Reactive Protein 1.06 H (0.0-0.3) mg/dL Vital Signs Temperature 98.2 F 04/30/19 15:25 Temperature Source Tympanic 04/30/19 15:25 Pulse 80 04/30/19 15:40 Pulse Rhythm Regular 04/30/19 15:40 Respiratory Rate 20 04/30/19 15:40 Respiratory Effort Non-Labored 04/30/19 15:40 Respiratory Depth Normal 04/30/19 15:40 Respiratory Pattern Normal 04/30/19 15:40 Blood Pressure 114/72 04/30/19 15:25 Pulse Oximetry 94 L 04/30/19 15:25 Oxygen Delivery Method Room Air 04/30/19 15:25 Oxygen Flow Rate 0 04/30/19 15:25 Pain Level 6 04/30/19 19:48 Comment 04/30/19 15:40 Intake & Output 04/29/19 04/30/19 04/30/19 22:59 11:59 23:59 Intake Total 580 / 1707.0 Output Total Balance 580 / 1707.0 Intake: IV 100 / 267.0 Oral 480 / 1440 Output: Urine Other: Urine Color Urine Appearance Urine Odor Comment pt reports voiding multiple times with no issues. Voiding Methods Toilet Laboratory Results WBC 3.35 k/cumm (4.4-10.8) L 04/30/19 06:30 RBC 3.30 m/cumm (4.50-6.00) L 04/30/19 06:30 Hgb 10.3 g/dL (13.5-17.5) L 04/30/19 06:30 Hct 32.0 % (40.0-50.0) L 04/30/19 06:30 MCV 97.0 fL (80-95) H 04/30/19 06:30 MCH 31.2 pg (27.0-33.0) 04/30/19 06:30 MCHC 32.2 g/dL (32.0-36.0) 04/30/19 06:30 RDW 13.1 % (11.8-14.1) 04/30/19 06:30 Plt Count 451 x1000/uL (130-400) H 04/30/19 06:30 MPV 8.8 fL (8.0-11.0) 04/30/19 06:30 Iron 75 ug/dL (65-175) 04/28/19 07:29 Ferritin 186 ng/mL (26-388) 04/28/19 07:29 C-Reactive Protein 1.06 mg/dL (0.0-0.3) H 04/30/19 06:30
[2019-04-30 23:45] VITALS: BP 114/71; PULSE 67; RESP 17; TEMP 36.6; O2SAT 99
[2019-05-01] MEDS: Ibuprofen 600 MG TAB PO ×4 (00:57→16:57)
[2019-05-01] MEDS: Normal Saline Flush 10 ML SYR IVP ×3 (00:58→09:52)
[2019-05-01] MEDS: oxyCODONE 5 MG TAB 10 MG PO ×8 (01:54→22:42)
[2019-05-01] MEDS: Acetaminophen 500 MG TAB 1000 MG PO ×4 (01:54→19:22)
[2019-05-01] MEDS: CLINDAMYCIN 900 MG/50 ML BAG 50 MG IVPB ×2 (01:54→09:52)
[2019-05-01] MEDS: HYDROmorphone 2 MG/ML VIAL 4 MG IVP ×3 (06:07→20:24)
[2019-05-01] MEDS: Normal Saline 500 ML 30 ML IVPB (06:08)
[2019-05-01 07:52] VITALS: BP 114/74; PULSE 64; RESP 17; TEMP 36.6; O2SAT 99
[2019-05-01] MEDS: Docusate Sodium 100 MG CAP PO ×2 (07:57→20:30)
[2019-05-01] MEDS: Gabapentin 100 MG CAP PO ×3 (07:57→20:30)
[2019-05-01] MEDS: Lactobacillus Acidophilus CAP 1 CAP PO ×3 (07:57→20:30)
[2019-05-01] MEDS: Clotrimazole 1% 15 GM TUBE TP ×2 (07:58→20:31)
[2019-05-01] MEDS: Normal Saline Flush 10 ML SYR 20 ML IVP ×2 (07:58→22:00)
--- NOTE | 2019-05-01 10:15 | PGE_ITS ---
Documented by User: ZOE Sadler 05/01/19 10:21 Date of Service Date of service: 05/01/19 Time of Service: 08:00 Assessment and Plan Assessment and plan (1) Cellulitis and abscess of left lower extremity: Status: Acute Assessment and plan: A/P: Changed dressing except the packing in the medial ankle wound. 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 Lower extremity erythema and swelling noted to approximately the knee. Continue with antibiotics. Subjective Subjective Interval history since last seen: Patient complains of pain mostly around his left ankle. Denies having any fevers or chills. Exam Const General: cooperative, healthy appearing and comfortable Orientation: alert and oriented x3 Resp Effort & Inspection: normal respiratory effort, no audible wheezes and no cough Skin Other: Left Lower Leg- Changed the xeroform, curlex and reapplied the dayan wrap. Mild erythema throughout lower leg. Mild drainage from the medial ankle wound. Packing remains in. Objective Objective Clinical Data: Vital Signs Temperature 36.6 C 05/01/19 07:52 Temperature Source Tympanic 05/01/19 07:52 Pulse 64 05/01/19 07:52 Pulse Rhythm Regular 05/01/19 08:39 Respiratory Rate 17 05/01/19 07:52 Respiratory Effort 05/01/19 08:39 Respiratory Depth Normal 05/01/19 08:39 Respiratory Pattern Normal 05/01/19 08:39 Blood Pressure 114/74 05/01/19 07:52 Pulse Oximetry 99 05/01/19 07:52 Oxygen Delivery Method Room Air 05/01/19 07:52 Oxygen Flow Rate 0 05/01/19 07:52 Pain Level 5 05/01/19 08:28 Comment 04/30/19 15:40 Intake & Output 04/30/19 05/01/19 05/01/19 18:59 06:59 18:59 Intake Total 1606.5 / 2293.0 686.5 / 2293.0 220 / 220 Balance 1606.5 / 2293.0 686.5 / 2293.0 220 / 220 Intake: IV 166.5 / 853.0 686.5 / 853.0 Oral 1440 / 1440 200 / 200 Other: Comment pt reports voiding multiple times with no issues. PT OOB TO VOID INDEP DURING NOC SHIFT. Voiding Methods Toilet Toilet Laboratory Results WBC 3.35 k/cumm (4.4-10.8) L 04/30/19 06:30 RBC 3.30 m/cumm (4.50-6.00) L 04/30/19 06:30 Hgb 10.3 g/dL (13.5-17.5) L 04/30/19 06:30 Hct 32.0 % (40.0-50.0) L 04/30/19 06:30 MCV 97.0 fL (80-95) H 04/30/19 06:30 MCH 31.2 pg (27.0-33.0) 04/30/19 06:30 MCHC 32.2 g/dL (32.0-36.0) 04/30/19 06:30 RDW 13.1 % (11.8-14.1) 04/30/19 06:30 Plt Count 451 x1000/uL (130-400) H 04/30/19 06:30 MPV 8.8 fL (8.0-11.0) 04/30/19 06:30 Iron 75 ug/dL (65-175) 04/28/19 07:29 Ferritin 186 ng/mL (26-388) 04/28/19 07:29 C-Reactive Protein 1.06 mg/dL (0.0-0.3) H 04/30/19 06:30 Documented by User: Bijal Melendez DO 05/01/19 20:12 Assessment and Plan Assessment and plan (1) Cellulitis and abscess of left lower extremity: Status: Acute (2) Acute venous stasis dermatitis: Status: Acute (3) Venous stasis ulcer of ankle: Status: Acute (4) Abscess of leg, left: Status: Acute Assessment and plan: cultures are sterile- pt had been on abx for some time. cont abx cont pro-biotics for 30 days once abx competed. dressing changes: pack abscess cavity w/ plain packing until closed LE: UNNA boot w/ keyhole- change every 3days at this time. walk/PT. nutritional support stop smoking pyscho-social issue. cont abx/ augmentin for another week adn will re-eval as wound prgresses. will follow stable for d/c when has stable home environment. (5) Tobacco abuse: Status: Acute (6) History of incision and drainage: Status: Inactive Exam Skin Wounds: wounds noted Other: wound: L inf ankle. 1x1 mild erthyma adn edema. 80% granulation 20% slough. serous drainage. high pain. Leg: edema. changes of chronic stasis. edema/redness or less. 50% eschar resolved. Still 50% eschar of LE b/t ankle and calf. black leathery- very dry. no exudate. Ct angio- inconclusive MRI: no osteo cultures- sterile (pt had been on abx for some time) full ROM sensation grossly intact. +DP pulse. no PT.
[2019-05-01] MEDS: Enoxaparin 40 MG/0.4 ML SYR SC (13:45)
--- NOTE | 2019-05-01 15:12 | W.PM.PROGNOT ---
Date of Service Date of service: 05/01/19 Time of Service: 15:13 Assessment and Plan Assessment and plan (1) Cellulitis and abscess of left lower extremity: Status: Acute Assessment and plan: Leg continues to clinically improve by appearance. Topical wound care of the upper extremity from his stasis dermatitis changes with compression and changing to Unna boot system. No cultures to guide treatment. I am switching him to oral Augmentin and we will need to watch for evidence of breakthrough infection. Check CBC and CRP tomorrow. (2) Acute venous stasis dermatitis: Status: Acute Assessment and plan: Switching to Unna boot system, change every 3 days. (3) Pain management: Status: Acute Assessment and plan: Continues to complain of pain around the ankle. Nevertheless has been able to be up and walking some. Discussion on risks of ongoing opiate use. He does not completely agree with my level of concern regarding potential for relapse of opiate abuse. I am continuing oxycodone every 3 hours but limiting IV hydromorphone to be given prior to dressing changes only. (4) Tobacco abuse: Status: Acute Assessment and plan: Doing okay with Nicotrol inhalers. Continue same. (5) Opioid abuse: Status: Acute Assessment and plan: Tapering down on his opiate pain medications as noted above. Continue buprenorphine at current dose. Subjective Subjective Interval history since last seen: No complaints other than continued pain in the left ankle. No cough. No stomach upset. Denies constipation. Acknowledges some boredom. Frustrated by what he perceives is my over concern of his opiate use and risk for relapse of opiate abuse. Exam Narrative Exam Narrative: A little discouraged after we talk about tapering down on hydromorphone IV. He has been afebrile. Normal blood pressure and SaO2. Lungs are clear. No heart murmur. Active bowel sounds. Left leg has chronic increased pigmentation with multiple areas of eschar on superficial erosions but overall improved compared to 48 hours ago. There is not any tenderness in the upper portion of his left calf. He still has significant discomfort with packing change. His foot is warm and there is no pitting edema in his foot. Objective Objective Clinical Data: Vital Signs Temperature 36.6 C 05/01/19 07:52 Temperature Source Tympanic 05/01/19 07:52 Pulse 64 05/01/19 07:52 Pulse Rhythm Regular 05/01/19 08:39 Respiratory Rate 17 05/01/19 07:52 Respiratory Effort 05/01/19 08:39 Respiratory Depth Normal 05/01/19 08:39 Respiratory Pattern Normal 05/01/19 08:39 Blood Pressure 114/74 05/01/19 07:52 Pulse Oximetry 99 05/01/19 07:52 Oxygen Delivery Method Room Air 05/01/19 07:52 Oxygen Flow Rate 0 05/01/19 07:52 Pain Level 5 05/01/19 14:45 Comment 04/30/19 15:40 Intake & Output 04/30/19 05/01/19 05/01/19 23:59 11:59 23:59 Intake Total 980 / 2107.0 556.5 / 606.5 50 / 606.5 Balance 980 / 2107.0 556.5 / 606.5 50 / 606.5 Intake: IV 500 / 667.0 356.5 / 406.5 50 / 406.5 Oral 480 / 1440 200 / 200 Other: Comment pt reports voiding multiple times with no issues. PT OOB TO VOID INDEP DURING NOC SHIFT. Voiding Methods Toilet Toilet Laboratory Results WBC 3.35 k/cumm (4.4-10.8) L 04/30/19 06:30 RBC 3.30 m/cumm (4.50-6.00) L 04/30/19 06:30 Hgb 10.3 g/dL (13.5-17.5) L 04/30/19 06:30 Hct 32.0 % (40.0-50.0) L 04/30/19 06:30 MCV 97.0 fL (80-95) H 04/30/19 06:30 MCH 31.2 pg (27.0-33.0) 04/30/19 06:30 MCHC 32.2 g/dL (32.0-36.0) 04/30/19 06:30 RDW 13.1 % (11.8-14.1) 04/30/19 06:30 Plt Count 451 x1000/uL (130-400) H 04/30/19 06:30 MPV 8.8 fL (8.0-11.0) 04/30/19 06:30 Iron 75 ug/dL (65-175) 04/28/19 07:29 Ferritin 186 ng/mL (26-388) 04/28/19 07:29 C-Reactive Protein 1.06 mg/dL (0.0-0.3) H 04/30/19 06:30
[2019-05-01 16:26] VITALS: BP 123/78; PULSE 67; RESP 21; TEMP 36.2; O2SAT 97
[2019-05-01] MEDS: Amoxicillin 875/Clav. 125 TAB PO (20:30)
[2019-05-01 23:31] VITALS: BP 110/70; PULSE 76; RESP 16; TEMP 37; O2SAT 97
[2019-05-02] MEDS: Ibuprofen 600 MG TAB PO ×5 (00:18→23:23)
[2019-05-02] MEDS: Acetaminophen 500 MG TAB 1000 MG PO (04:24)
[2019-05-02] MEDS: oxyCODONE 5 MG TAB 10 MG PO ×6 (04:24→22:12)
[2019-05-02 06:50] LABS: HCT 33.1 % (40.0-50.0); HGB 10.6 g/dL (13.5-17.5); Mean Corpuscular Hemoglobin 31.1 pg (27.0-33.0); Mean Corpuscular Volume 97.1 fL (80-95); Mean Platelet Volume 8.9 fL (8.0-11.0); Platelet Count 378 x1000/uL (130-400); RBC 3.41 m/cumm (4.50-6.00); RBC Distribution Width 13.4 % (11.8-14.1); White Blood Cell Count 2.79 k/cumm (4.4-10.8)
[2019-05-02 07:01] LABS: C-Reactive Protein 0.65 mg/dL (0.0-0.3)
--- NOTE | 2019-05-02 07:25 | W.PM.PROGNOT ---
Date of Service Date of service: 05/02/19 Time of Service: 07:25 Assessment and Plan Assessment and plan (1) Cellulitis and abscess of left lower extremity: Status: Acute Assessment and plan: A/P: Dressing in place with unna boot and dayan wrap. Warmth appreciated on the left LE, below the knee. Patient denies any L LE pain superior to his lower leg. Patient reports that he is out of bed throughout the day. Continue antibiotics. Subjective Subjective Interval history since last seen: Patient reports that he is feeling okay this morning. He reports that he tolerated the dressing changes yesterday, with minimal discomfort. Exam Const General: cooperative, healthy appearing and comfortable Orientation: alert and oriented x3 Resp Effort & Inspection: normal respiratory effort, no audible wheezes and no cough Objective Objective Clinical Data: Abnormal lab results 05/02/19 05/02/19 Range/Units 06:00 06:00 WBC 2.79 L (4.4-10.8) k/cumm RBC 3.41 L (4.50-6.00) m/cumm Hgb 10.6 L (13.5-17.5) g/dL Hct 33.1 L (40.0-50.0) % MCV 97.1 H (80-95) fL C-Reactive Protein 0.65 H (0.0-0.3) mg/dL Vital Signs Temperature 37 C 05/01/19 23:31 Temperature Source Tympanic 05/01/19 23:31 Pulse 76 05/01/19 23:31 Pulse Rhythm Regular 05/02/19 01:28 Respiratory Rate 16 05/01/19 23:31 Respiratory Effort Non-Labored 05/02/19 01:28 Respiratory Depth Normal 05/02/19 01:28 Respiratory Pattern Normal 05/02/19 01:28 Blood Pressure 110/70 05/01/19 23:31 Pulse Oximetry 97 05/01/19 23:31 Oxygen Delivery Method Room Air 05/01/19 23:31 Oxygen Flow Rate 0 05/01/19 23:31 Pain Level 3 05/02/19 06:00 Comment 04/30/19 15:40 Intake & Output 05/01/19 05/02/19 05/02/19 18:59 06:59 18:59 Intake Total 800 / 800 Balance 800 / 800 Intake: IV 120 / 120 Oral 680 / 680 Other: Comment PT OOB TO VOID INDEP DURING NOC SHIFT. Voiding Methods Toilet Laboratory Results WBC 2.79 k/cumm (4.4-10.8) L 05/02/19 06:00 RBC 3.41 m/cumm (4.50-6.00) L 05/02/19 06:00 Hgb 10.6 g/dL (13.5-17.5) L 05/02/19 06:00 Hct 33.1 % (40.0-50.0) L 05/02/19 06:00 MCV 97.1 fL (80-95) H 05/02/19 06:00 MCH 31.1 pg (27.0-33.0) 05/02/19 06:00 MCHC 32.0 g/dL (32.0-36.0) 05/02/19 06:00 RDW 13.4 % (11.8-14.1) 05/02/19 06:00 Plt Count 378 x1000/uL (130-400) 05/02/19 06:00 MPV 8.9 fL (8.0-11.0) 05/02/19 06:00 Iron 75 ug/dL (65-175) 04/28/19 07:29 Ferritin 186 ng/mL (26-388) 04/28/19 07:29 C-Reactive Protein 0.65 mg/dL (0.0-0.3) H 05/02/19 06:00
[2019-05-02] MEDS: Amoxicillin 875/Clav. 125 TAB PO ×2 (09:15→19:41)
[2019-05-02] MEDS: Gabapentin 100 MG CAP PO ×3 (09:17→19:42)
[2019-05-02] MEDS: Normal Saline Flush 10 ML SYR 20 ML IVP ×2 (09:17→19:45)
[2019-05-02] MEDS: Docusate Sodium 100 MG CAP PO ×2 (09:17→19:42)
[2019-05-02] MEDS: Lactobacillus Acidophilus CAP 1 CAP PO ×3 (09:17→19:42)
[2019-05-02] MEDS: Clotrimazole 1% 15 GM TUBE TP ×2 (09:18→19:48)
[2019-05-02] MEDS: Normal Saline Flush 10 ML SYR IVP (09:39)
[2019-05-02] MEDS: HYDROmorphone 2 MG/ML VIAL 4 MG IVP ×2 (09:40→19:46)
[2019-05-02 09:44] VITALS: BP 108/66; PULSE 81; RESP 20; TEMP 36.9; O2SAT 99
[2019-05-02 11:13] LABS: HIV-1/2 Ag & Ab Screen Negative (Negative)
[2019-05-02] MEDS: Enoxaparin 40 MG/0.4 ML SYR SC (13:42)
[2019-05-02 16:35] VITALS: BP 126/78; PULSE 79; RESP 18; TEMP 36.6; O2SAT 98
[2019-05-02] MEDS: Normal Saline 50 ML 10 ML (19:49)
[2019-05-02 23:52] VITALS: BP 106/61; PULSE 71; RESP 18; TEMP 36.5; O2SAT 97
[2019-05-03] MEDS: oxyCODONE 5 MG TAB 10 MG PO ×7 (03:32→23:58)
[2019-05-03] MEDS: Acetaminophen 500 MG TAB 1000 MG PO ×3 (03:32→20:48)
[2019-05-03] MEDS: Ibuprofen 600 MG TAB PO ×4 (07:06→23:57)
[2019-05-03 08:15] VITALS: BP 114/76; PULSE 68; RESP 19; TEMP 37; O2SAT 100
[2019-05-03] MEDS: Gabapentin 100 MG CAP PO ×3 (09:01→20:47)
[2019-05-03] MEDS: Amoxicillin 875/Clav. 125 TAB PO ×2 (09:02→20:47)
[2019-05-03] MEDS: Docusate Sodium 100 MG CAP PO ×2 (09:02→20:47)
[2019-05-03] MEDS: Lactobacillus Acidophilus CAP 1 CAP PO ×3 (09:02→20:46)
[2019-05-03] MEDS: Normal Saline Flush 10 ML SYR 20 ML IVP ×2 (09:03→20:48)
[2019-05-03] MEDS: Clotrimazole 1% 15 GM TUBE TP ×2 (09:19→22:04)
[2019-05-03] MEDS: HYDROmorphone 2 MG/ML VIAL 4 MG IVP (09:20)
--- NOTE | 2019-05-03 11:39 | WOUNDCONS_ITS ---
Wound Initial Evaluation Narrative: wound from I&D of abscess on left medial ankle area healing well. 100% red non- granulating tissue noted. Wound edges unattached. wound measuring 1.3 x 1.2 x 0.7 cm Undermining noted @ 6:00 measuring 0.6 cm LLE significantly improved from Unna boot application 2 days ago. No open areas noted @ this time. Healing well. Redness has decreased. Trace edema noted to LLE. Ankle wound cleansed w/wound cleanser. skin prep applied to robert wound skin. Aquacell Ag rope placed in wound. Unna boot applied from toes to below knee. Pt tolerated well. Dr. Melendez present in room, agrees with assessment and treatment plan. Recommend continuing current treatment: Cleanse left medial ankle wound with wound cleanser w/surfactant. Place Aquacell Ag rope lightly into wound bed, Change every 3 days and PRN. Apply Unna boot to LLE. Change Every 3 days and PRN.
[2019-05-03] MEDS: Enoxaparin 40 MG/0.4 ML SYR SC (14:26)
--- NOTE | 2019-05-03 15:26 | PGE_ITS ---
Date of Service Date of service: 05/03/19 Time of Service: 15:26 Assessment and Plan Assessment and plan (1) Cellulitis and abscess of left lower extremity: Status: Acute Assessment and plan: -Cleanse left medial ankle wound with wound cleanser w/surfactant. Place Aquacell Ag rope lightly into wound bed, Change every 3 days and PRN. -Apply Unna boot to LLE. Change Every 3 days and PRN. -D/C on 7 days of further augmentin BID -F/u w/ wound clinic every 3days for dressing changes and wound monitoring -F/u w/ provider in 5-10 days for monitoring of dx process -stop smoking -high protein diet -suboxone therapy *Stable for d/c from Sx standpoint (2) Acute venous stasis dermatitis: Status: Acute (3) Abscess of leg, left: Status: Acute (4) Opioid abuse: Status: Acute (5) Tobacco abuse: Status: Acute (6) Pain management: Status: Acute (7) Anemia of chronic disease: Status: Acute Subjective Subjective Interval history since last seen: Pt is doing well. no headaches. No CP or SOB. no productive cough. no dysuria. no leg pain or swelling. pt is up walking and going for smokes. no diarrhea. tolerating regular diet. Exam Skin Other: wound size: 1.3 x 1.2 x 0.7 cm 100% granulation. starting to contract. the ankle to knee circumferential: only 10% of eschar left. underlying tissue is pink and healthy. signif decrease in redness and swelling w/ unna. about 10% open area from severe venous stasis Dx. pt is going to require lifelong compression in this limb. Undermining: yes does need to be packed Wound Base: 100% no necrotic tissue. minimal proteinaceous membraned. serous drainage- moderate. does not require debridement Surrounding Tissue: intact. no maceration. no yeast Pain high. pt has hx of heroin abuse Signs of infection : resolving. cont augmenting for another 7days BID Abx: augmentin Vascular status: assessed and is intact. no osteo. needs to stop smoking Protein status: no recent eval. CRP- down to nl. Anemia. Fe stores are good. prob due to chronic Dx. Venefer not indicated. Pressure offloading: UNNA Smoker: yes refuses to stop Diabetes No Objective Objective Clinical Data: Vital Signs Temperature 37.0 C 05/03/19 08:15 Temperature Source Tympanic 05/03/19 08:15 Pulse 68 05/03/19 08:15 Pulse Rhythm Regular 05/03/19 09:40 Respiratory Rate 19 05/03/19 08:15 Respiratory Effort Non-Labored 05/03/19 09:40 Respiratory Depth Normal 05/03/19 09:40 Respiratory Pattern Normal 05/03/19 09:40 Blood Pressure 114/76 05/03/19 08:15 Pulse Oximetry 100 05/03/19 08:15 Oxygen Delivery Method Room Air 05/03/19 08:15 Oxygen Flow Rate 0 05/03/19 08:15 Pain Level 4 05/03/19 14:26 Comment 05/02/19 23:52 Intake & Output 05/02/19 05/03/19 05/03/19 23:59 11:59 23:59 Intake Total 890 / 1250 370 / 1090 720 / 1090 Balance 890 / 1250 370 / 1090 720 / 1090 Intake: IV 50 / 50 Oral 840 / 1200 370 / 1090 720 / 1090 Other: Comment voiding independently w/o difficulty [facility] shift [facility]ing indepndently [facility] Laboratory Results WBC 2.79 k/cumm (4.4-10.8) L 05/02/19 06:00 RBC 3.41 m/cumm (4.50-6.00) L 05/02/19 06:00 Hgb 10.6 g/dL (13.5-17.5) L 05/02/19 06:00 Hct 33.1 % (40.0-50.0) L 05/02/19 06:00 MCV 97.1 fL (80-95) H 05/02/19 06:00 MCH 31.1 pg (27.0-33.0) 05/02/19 06:00 MCHC 32.0 g/dL (32.0-36.0) 05/02/19 06:00 RDW 13.4 % (11.8-14.1) 05/02/19 06:00 Plt Count 378 x1000/uL (130-400) 05/02/19 06:00 MPV 8.9 fL (8.0-11.0) 05/02/19 06:00 Iron 75 ug/dL (65-175) 04/28/19 07:29 Ferritin 186 ng/mL (26-388) 04/28/19 07:29 C-Reactive Protein 0.65 mg/dL (0.0-0.3) H 05/02/19 06:00 HIV 1&2 Ag/Ab, 4th Gen Negative (Negative) 04/28/19 07:28
[2019-05-03 15:45] VITALS: BP 115/75; PULSE 75; RESP 20; TEMP 36.7; O2SAT 97
--- NOTE | 2019-05-03 17:00 | PDOC.CMPRO ---
- If Service Date Differs Date of service: 05/03/19 Time of Service: 17:00 Care Management Progress Note S/O: Enzo continues to improve. It is anticipated that he will discharge tomorrow. Appointments have been scheduled for David as follows: New PCP: Dr. Leonie Dominguez June 07, 2019 at 10;00 am in [place], [place] Substance Abuse [facility]: [facility] [address], [place] 05/04/19 at 1:30 PM Wound Care: [facility] [address], [place] Wednesday05/05/19 at 8am P:Enzo will be discharged back to the community. He has met with Faby from [facility] who is working on housing and additional clothing and other resources. Enzo has received clothing, and meal assistance as well as medicaid. A referral has been sent to [facility] for Case Management. He will stay with a friend in [place] until he can secure housing. Enzo has appointments scheduled as above.
[2019-05-03 20:04] VITALS: BP 117/72; PULSE 76; RESP 20; TEMP 37.1; O2SAT 96
[2019-05-03 23:20] VITALS: BP 123/65; PULSE 86; RESP 18; TEMP 37; O2SAT 96
[2019-05-04] MEDS: oxyCODONE 5 MG TAB 10 MG PO ×3 (03:43→10:44)
[2019-05-04] MEDS: Acetaminophen 500 MG TAB 1000 MG PO ×2 (03:43→10:44)
[2019-05-04] MEDS: Ibuprofen 600 MG TAB PO ×2 (07:01→11:23)
[2019-05-04 08:03] VITALS: BP 106/69; PULSE 60; RESP 22; TEMP 36.5; O2SAT 100
[2019-05-04] MEDS: Lactobacillus Acidophilus CAP 1 CAP PO (08:17)
[2019-05-04] MEDS: Normal Saline Flush 10 ML SYR IVP (08:17)
[2019-05-04] MEDS: Amoxicillin 875/Clav. 125 TAB PO (08:17)
[2019-05-04] MEDS: Gabapentin 100 MG CAP PO (08:17)
[2019-05-04] MEDS: Docusate Sodium 100 MG CAP PO (08:17)
--- NOTE | 2019-05-04 10:26 | DSE_ITS ---
Date of service: 05/04/19 Time of Service: 10:26 DS: Diagnosis Discharge Diagnosis (1) Cellulitis and abscess of left lower extremity: Status: Acute (2) Acute venous stasis dermatitis: Status: Acute (3) Abscess of leg, left: Status: Acute (4) Opioid abuse: Status: Acute (5) Tobacco abuse: Status: Acute (6) Pain management: Status: Acute (7) Anemia of chronic disease: Status: Acute Discharge Plan Disposition Patient Disposition: HOME Condition: Improving Discharge Details Reason For Visit: CELLULITIS Admit Date/Time: 04/24/19 11:49 Admit Provider: Debbi Bhardwaj Attending Provider: Debbi Bhardwaj Primary Care Provider: Leonie Dominguez [facility] Course Hospital Course: This is a 48-year-old male patient who had been incarcerated for the last 6 months who has a history of IV drug abuse states he is clean 12 years who presents to the emergency department for failed outpatient treatment of left lower extremity cellulitis. He has been on Bactrim and cephalexin with worsening erythema swelling and pain. His work-up in the emergency department did rule out necrotizing fasciitis with negative lactic acid and CT that showed no drainable collection or evidence of necrotizing fasciitis. He was started on IV vancomycin and Zosyn and was admitted under hospitalist service to the MedSurg unit for further management. He has been afebrile and hemodynamically stable there is no evidence of sepsis. While on med/surg his edema slowly improved. daily he reported improvements in pain and swelling. His CPR was slowly trending downward. Due to the extent of his edeman, he developed extensive weepy of the entire leg. The area, although slowly improving was still quite impressive and on day 6 his antibiotics were changed to oxicillin and clindamycin. There was no cultures to narrow further. Wound care was consulted and dressings recommended to help dry area up. He continued to improve but soon developed an abscess on the lower leg which was confirmed by ultrasound. Surgical consult was placed and he was brought to the OR for I&D. He has no additional complications other than pain management which remained challenging. He is now receiving q72 hour dressing changes and is on oral augmentin. He is to complete one more week and continue with recommended dressing change Home Meds and New Rx's Prescriptions: New acetaminophen [Mapap Extra Strength] 500 mg Tablet 1,000 mg PO Q6H PRN PRNQty: 0 RF: 0 docusate sodium [Colace] 100 mg Capsule 100 mg PO BID Qty: 0 RF: 0 gabapentin 100 mg Capsule 100 mg PO TID Qty: 90 RF: 0 amoxicillin-pot clavulanate 875-125 mg Tablet 1 tab PO BID Qty: 14 RF: 0 acidophilus-pectin, citrus 25 million cell -100 mg Tablet 1 cap PO TID Qty: 21 RF: 0 oxycodone 5 mg Tablet 5 mg PO Q3D PRN (Reason: pain) Qty: 30 RF: 0 Continued Vyvanse 70 mg Capsule 70 mg PO DAILY Qty: 30 RF: 1 buprenorphine HCl 8 mg Tablet, Sublingual 16 mg SUBLINGUAL DAILY RF: 0 Changed ibuprofen 200 mg Tablet 600 mg PO QID Qty: 0 RF: 0 Discontinued sulfamethoxazole-trimethoprim 800-160 mg Tablet 1 tab PO BID RF: 0 cephalexin 500 mg tablet 500 mg PO BID 10 Days Qty: 20 RF: 0 Discharge Instructions Instructions: Cellulitis (DC), Abscess Incision and Drainage (DC) Additional Instructions: Wound care instructions: Cleanse left medial ankle wound with wound cleanser w/surfactant. Place Aquacell Ag rope lightly into wound bed, Change every 3 days and PRN. Apply Unna boot to LLE. Change Every 3 days and PRN. Continue augmentin for one week then discontinue. Stand Alone Forms: Nursing Discharge Form Referrals: Leonie Dominguez [Primary Care Provider] - 06/07/19 10:00 am Activity:: Activity as Tolerated Equipment/Supplies:: No Equipment Needed Diet:: As Tolerated Discharge Orders Discharge Orders: Discharge Order (Routine); Ordered 05/04/19 Ordered By: Amanda Alexander Discharge Data Discharge Date/Time-TO BE ENTERED AT DEPARTURE: 05/04/19 12:15 DS: Summary Status at Discharge Functional status at discharge: independent ambulation Overall status at discharge: patient is progressing back to baseline Mental Status: mental status grossly normal Speech and Movement: speech and movement normal Mood: congruent mood Affect: normal affect Exam Narrative Exam Narrative: Const General: cooperative, healthy appearing, comfortable and no acute distress Nutritional Appearance: average body habitus Orientation: alert, awake and oriented x3 Resp Effort & Inspection: normal respiratory effort Cardio Rate: regular rate Rhythm: regular rhythm GI Inspection: normal to inspection Palpation: soft Skin rash reportedly improved, not visualized by me, dressing change by surgery and wound care this morning. Psych Mental Status: mental status grossly normal Speech and Movement: speech and movement normal Mood: congruent mood Affect: normal affect DS: Data Vitals/I&O Vitals and I&O: Vital Signs Temperature 36.5 C 05/04/19 08:03 Temperature Source Tympanic 05/04/19 08:03 Pulse 60 05/04/19 08:03 Pulse Rhythm Regular 05/04/19 02:31 Respiratory Rate 22 05/04/19 08:03 Respiratory Effort 05/04/19 02:31 Respiratory Depth Normal 05/04/19 02:31 Respiratory Pattern Normal 05/04/19 02:31 Blood Pressure 106/69 05/04/19 08:03 Pulse Oximetry 100 05/04/19 08:03 Oxygen Delivery Method Room Air 05/04/19 08:03 Oxygen Flow Rate 0 05/04/19 08:03 Pain Level 7 05/04/19 08:03 Comment 05/02/19 23:52 Intake & Output 05/03/19 05/03/19 05/04/19 11:59 23:59 11:59 Intake Total 370 / 1620 1250 / 1620 720 / 720 Balance 370 / 1620 1250 / 1620 720 / 720 Intake: IV 50 / 50 Oral 370 / 1570 1200 / 1570 720 / 720 Other: Comment voiding indepndently thorughout shift pt voids indep in toilet Voiding Methods Toilet [facility] Medical History (Updated 05/03/19 @ 16:36 by Bijal Melendez DO) Acute venous stasis dermatitis (Acute) Anemia of chronic disease (Acute) no Fe defn Cellulitis and abscess of left lower extremity (Acute) No active medical problems (Acute) Venous stasis ulcer of ankle (Acute) Surgical History History of incision and drainage (Inactive) Left sternal-clavicular septic joint Social History Smoking/Tobacco Use Status: Former Tobacco Use Alcohol Intake: former Drug use: Current Sobriety Substance use type: former substance user
[2019-05-04] MEDS: Normal Saline Flush 10 ML SYR 20 ML IVP (10:44)
[2019-05-04] MEDS: Bacitracin 1 PACKET (11:23)
--- NOTE | 2019-05-04 17:25 | PDOC.CMDIS ---
- If Service Date Differs Date of service: 05/04/19 Time of Service: 17:25 LACE Index Scoring Tool - Questions: Length of Stay (in days): 14 or more Acuity (Admit via E.D.?): Yes E.D. Visits: 2 - Answers: Total Score: 12 Risk of Readmission: High Risk Care Management Discharge Reason for Hospitalization: Cellulitis Discharge Plan: David will be discharged back to the [facility]. A referral has been sent to [facility] for Case Management. He will stay with a friend in [place] until he can secure housing. Enzo has appointments scheduled as. follows: New PCP: Dr. Leonie Dominguez June 07, 2019 at 10;00 am in [place], [place] Substance Abuse [facility]: [facility] [address], [place] 05/04/19 at 1:30 PM. Wound Care: [facility] [address], [place] Wednesday05/05/19 at 8am
== END 2019-05-04 12:15 | disposition home or self-care (01) | DRG 580 ==
PROVIDERS: Internal Medicine; Nurse Practitioner Family; Admitting Provider Internal Medicine; PCP Internal Medicine; Visit Provider Internal Medicine
DX: L03.116 Cellulitis of left lower limb (principal); F11.20 Opioid dependence, uncomplicated; L97.328 Non-pressure chronic ulcer of left ankle with other specified severity; E87.5 Hyperkalemia; L02.416 Cutaneous abscess of left lower limb; Z59.0 Homelessness; I87.2 Venous insufficiency (chronic) (peripheral); D63.8 Anemia in other chronic diseases classified elsewhere; Z87.891 Personal history of nicotine dependence
CPT/HCPCS: 36415; 36569; 73706; 76881; 85027; 87389; 96361; 96365; 96366; 96375; 97161; 99223; 99226; 99231; 99233; 99252; 99285; 99306; 99309; 99316; J1650; NC; 73723; 82728; 83540; 85049; 86140; J2060; J2700; J3490; Q9967

== ENCOUNTER 2019-04-28 13:05 | Day surgery (SDC) | payer MEDICAID, SELFPAY ==
[2019-04-28] MEDS: Midazolam/Ketamine/Ondansetron (3/25/2MG) 1 TAB 1 EACH SL (13:50)
--- NOTE | 2019-04-28 14:43 | W.PM.OP ---
Date of service: 04/28/19 Time of Service: 14:43 Operative Note Operative Note DATE OF PROCEDURE: 04/28/19 PRE-OP DIAGNOSIS: abscess/cellulitis POST-OP DIAGNOSIS: same abscess 6x4cm PROCEDURE: I & D SURGEON: Bijal Melendez ANESTHESIA: GETA and spinal ESTIMATED BLOOD LOSS: 5 PATHOLOGY: other COMPLICATIONS: None Patient was transported to: PACU Patient's condition: stable Indications: cultures taken Procedure Description: dict
[2019-04-28 14:45] VITALS: BP 92/58; PULSE 77; RESP 20; TEMP 36.4; O2SAT 97
[2019-04-28 14:50] VITALS: BP 99/69; PULSE 68; RESP 17; TEMP 36.4; O2SAT 99
[2019-04-28 14:55] VITALS: BP 98/60; PULSE 69; RESP 12; TEMP 36.4; O2SAT 99
[2019-04-28 15:10] VITALS: BP 108/70; PULSE 60; RESP 12; TEMP 36.5; O2SAT 98
--- NOTE | 2019-05-01 06:35 | ROE_ITS ---
REPORT OF OPERATIVE PROCEDURE DATE OF PROCEDURE April 28, 2019 PREOPERATIVE DIAGNOSES Severe venous stasis ulceration and abscess of the left lower extremity in the medial inferior portion of the leg just superior to the ankle- [id number] POSTOPERATIVE DIAGNOSES Severe venous stasis ulceration and abscess of the left lower extremity in the medial inferior portion of the leg just superior to the ankle-same PROCEDURE Incision and Drainage. SURGEON Bijal Melendez D.O. ANESTHESIA Spinal and MAC. ESTIMATED BLOOD LOSS 5 cc COMPLICATIONS The patient tolerated the procedure well without complications. INDICATIONS The patient is a 48-year-old male seen at the request of Dr. Bhardwaj, is here today for debridement. Informed consent was obtained explaining the risks and benefits of the procedure, including but not limited to bleeding, infection, scaring, pneumonia, blood clots, loss of function, chronic pain, and chronic numbness, need for skin graft, loss of function, loss of limb, complications from anesthesia and other unforetold complications. DESCRIPTION OF PROCEDURE The patient was marked. He was brought to the Operating Suite, placed in the prone position. Anesthesia was administered per the Department of Anesthesia. The patient was prepped and draped in a sterile fashion using a Betadine scrub solution. Time-out was performed. He is already on antibiotics. He has multiple, multiple ulcerations in a circumferential fashion from the ankle to the knee from chronic venous stasis disease. He does have good dorsalis pedis pulses and posterior tib. Multiple venous stasis ulcers, in a circumferential pattern from above the ankle to below the knee. Encompassing 90% of the tissue of that area. these are confined to epidermis/dermis, And do not extend into the fat. These are leathery and necrotic, these are debrided away. The tissue underneath is viable, fragile. The limb is swollen and is +2 pitting edema. There are multiple scars from old ulcerations. The patient was recently incarcerated. His MRSA nares screen was negative. He has an 4 x 3 x1cm abscess on the right medial inferior portion of the lower extremity as noted on ultrasound. The area is red and indurated and fluctuant. A 4-mm incision is made. A significant amount-15cc, of purulent drainage is removed with a significant amount of debris. It is down to muscle and tendons. All necrotic tissue is debrided away, sharply using a curette.. Cultures are taken. The wound was irrigated with a liter of saline. Pressure was held, the bleeding subsided and it was packed wet to dry. Nonstick Xeroform was placed over the rest of the ulcerations on the leg, and sterile dressing were applied. The patient tolerated the procedure without complication and was transferred to Recovery Room in stable condition. I did discuss the findings with Dr. Bhardwaj. Thank you for allowing me to participate in the care of this patient.
== END 2019-04-28 17:20 | disposition home or self-care (01) ==
LOC: DSU 13:26 → MS 14:57
PROVIDERS: PCP Internal Medicine; Visit Provider Surgery
PROC: (CPT 27603; principal; 2019-04-28 12:45)
DX: I83.028 Varicose veins of left lower extremity with ulcer other part of lower leg (principal); L97.821 Non-pressure chronic ulcer of other part of left lower leg limited to breakdown of skin; L02.416 Cutaneous abscess of left lower limb
CPT/HCPCS: 27603; 87070; 87075; 87205; J2250